=== PATIENT | female | born 1975 | race Caucasian/White ===

== ENCOUNTER → 2018-11-11 15:44 | Outpatient (CLI) | payer OTHER, SELFPAY ==
[2018-11-11 16:39] LABS: Hematocrit 35.8 % (37-47); Hemoglobin 10.8 g/dl (12.0-15.0)
--- OUTSIDE RECORDS SUMMARY | 2019-01-13 18:27 | XMS RPT_ITS ---
:1975 Author Organization [facility] Care Team Providers Name Role Phone Cliff Brush Attending Unavailable PROBLEMS PROBLEMS DATE TYPE CONDITION / CODE ATTENDING STATUS SOURCE 11/11/2018 Unknown D64.9 - Anemia, Cliff Brush Active [place] unspecified / [facility] D64.9(ICD-10) Hospital Repository PROCEDURES PROCEDURES No Procedure Records FoundRESULTS RESULTS HH, HEMOGLOBIN AND Collected: 11/11/2018 Status: F Source: [place]AL HEMATOCRIT 3:52 PM [facility] [place]POS[facility] TYPE CODE TESTS RESULT OUT OF RANGE REFERENCE UNITS LAB L100.1300 12.0-15.0 g/dl Low HGB 10.8 LAB L100.1400 37-47 % Low HCT 35.8 Performed By: #### L100.0600 #### [facility] [address] [place], [address] ALLERGIES ALLERGIES No Allergies Records FoundENCOUNTERS ENCOUNTERS ADMIT/DISCHARGE ACCOUNT ADMITTING ENCOUNTER LOCATION SOURCE NUMBER CLASS 11/11/2018 [id number] Ambulatory [address] ing:WOBLAB Repository PAYERS PAYERS ENCOUNTER GUARANTOR PAYER SUBSCRIBER SOURCE 11/11/2018 Carolina Antonella Carolina Opal [id number] [facility] icy Number: [id number] [id number] [place]ository [place] [address]Die: Date:[id number] [address], [place] () [address]EB: 11/11/2018 Secondary NOT GIVENUNK Opal Insurance:SELF PAY [facility]: Effective Repository Date:2018-11-11
== END ==
PROVIDERS: Visit Provider Obstetrics & Gynecology
DX: D64.9 Anemia, unspecified (principal)
CPT/HCPCS: 36415; 85014; 85018

== ENCOUNTER 2018-12-14 08:41 | Day surgery (SDC) | payer OTHER, SELFPAY ==
[2018-12-09 17:19] LABS: Prothrombin Time (Protime)PT. 13.1 SECONDS (11.7-14.9)
[2018-12-09 17:20] LABS: Partial Thromboplast Time 30.8 Seconds (24.1-36.2)
[2018-12-09 17:22] LABS: Hemoglobin 10.9 g/dl (12.0-15.0); Mean Corp Hgb Conc 31.1 g/gl (32-36); Mean Corpuscular Hgb 27.9 pg (27.0-32.0); Mean Corpuscular Volume 89.7 fL (81-99); Mean Platelet Vol. 9.8 fl (6.2-12.0); Platelet Count 294 K/mm3 (150-450); RBC Distribution Width CV 21.4 % (11.6-14.6); White Blood Count 7.2 K/mm3 (4.4-11.0)
[2018-12-09 17:25] LABS: Scan Indicated on CBC? Y/N YES- FLAGS NOTED
[2018-12-09 17:33] LABS: Creatinine, Serum 1.14 mg/dL (0.55-1.02); EST Glomerular Filtration Rate 55 mL/min (>60); Est Glom Filt Rate - Afr Amer 67 mL/min (>60)
[2018-12-09 17:36] LABS: Pregnancy, Serum, hCG Quali. NEGATIVE Negative (0-9 Nonpreg)
[2018-12-14] VITALS (15 sets, daily range): BP systolic 80–102; BP diastolic 45–66; PULSE 47–69; RESP 14–18; TEMP 36.2–36.7; O2SAT 93–100; BMI 22.4
--- NOTE | 2018-12-14 | IMM_PTH ---
PATIENT: REGINALD MCCARTHY LOC: [facility] [place] U#:[id number] AGE/SX: 43/F ROOM: RE12/14/[address]: Dr. Cliff Brush MD : 1975 BED: DIS: 12/15/2018 SPEC #: [id number] RECD: 12/17/18 13:44 STATUS: SALMA REQ #: [id number] KARISHMA: 12/14/18 00:[address]: Cliff Brush DEPT: IMMUNOHISTOCHEMISTRY RECD BY: Ivy Santamaria ENTERED: 12/17/18 13:45 SP TYPE: IMMUNO OTHR DR: Dr. Cliff Dixon MD Tissues: Uterus, NOS Procedures: p16 (initial) KI-67 (add) PHYSICIAN & INSTITUTION [place] [address] SPECIMEN INFORMATION: Tissue Source: Uterus Clinical Info: Blood loss anemia, submucous leiomyoma of uterus Specimen Number: [id number] #1 CPT code: 92220, 68664 METHODOLOGY: Deparaffinized sections of prefer/formalin-fixed tissue or PAP/DQ stained slides are incubated with monoclonal/polyclonal antibodies/oligonucleotide probes. Localization is made via biotin free immunoperoxidase method. Appropriate controls are performed and reacted as expected. Results on target cell population are indicated in the following table: RESULTS: ANTIBODY / CLONE RESULT P16 (E6H4) positive, block staining Ki-67 (30-9) positive These tests were developed and their performance characteristics determined by [facility]. They may not have been cleared or approved by the U.S. Food and Drug Administration. The FDA has determined that such clearance or approval is not necessary. INTERPRETATION: Uterus, hysterectomy: Consistent with moderate squamous dysplasia. ELOISE:jayden 12/18/18
--- NOTE | 2018-12-14 | HYST_PTH ---
PATIENT: REGINALD MCCARTHY LOC: [facility] [place] U#:[id number] AGE/SX: 43/F ROOM: RE12/14/[address]: Dr. Cliff Brush MD : 1975 BED: DIS: 12/15/2018 SPEC #: [id number] RECD: 12/14/18 16:31 STATUS: SALMA HURSTAshley #: [id number] KARISHMA: 12/14/18 00:[address]: Cliff Brush DEPT: SURGICAL PATHOLOGY RECD BY: Zachary Romero ENTERED: 12/15/18 12:06 SP TYPE: HYSTERECT OTHR DR: Dr. Cliff Dixon MD Tissues: Uterus, NOS Procedures: Surgery Specimen Level V HEADER OPERATION: Robotic assisted vaginal hysterectomy, bilateral salpingectomy PRE-OP DIAGNOSIS: Blood loss anemia and submucous leiomyoma of uterus TISSUE SUBMITTED: Uterus, cervix, bilateral fallopian tubes MICROSCOPIC DIAGNOSIS Uterus, cervix and bilateral fallopian tubes, vaginal hysterectomy and bilateral salpingectomy: Cervix - focal moderate squamous dysplasia (HGSIL and TERRENCE I). See comment. Chronic cystic cervicitis and squamous metaplasia. Resections margins are free of dysplastic changes. Endometrium - proliferative endometrium. Myometrium - intramural leiomyoma (6 cm in diameter). Bilateral fallopian tubes - no pathologic diagnosis. Bilateral paratubal cysts. SJ:rg 12/17/18 COMMENT Immunohistochemistry ([id number]) for surrogate HPV marker (p16) supports the above diagnosis. Case has been reviewed in consultation with Dr. Carrington who concurs with the above diagnosis. IDC:CE MICROSCOPIC DESCRIPTION Slides are reviewed. GROSS DESCRIPTION Received in fixative is one container labeled with the patient's name and designated uterus, cervix, bilateral fallopian tubes. The specimen consists of a hysterectomy specimen in multiple pieces. The largest piece of hysterectomy specimen shows one attached fallopian tube. The second detached fallopian tube is present in two pieces. A detached piece of tissue is also consistent with cervix. The uterus in multiple pieces including cervix weigh in aggregate 292 gm. The detached piece of cervix measures 5.5 x 5 x 1 cm. The endocervical canal measures 4 cm in length and the endocervical mucosa appears unremarkable. The largest piece of uterus measures 8 x 9 x 8 cm. The detached pieces of uterus in aggregate measure 9 x 8 x 3 cm. One of the smaller detached pieces shows the hemorrhagic endometrium without any mass lesion and measures 0.1 cm in thickness. The uterine wall in this piece measures up to 1.5 cm in thickness. The larger detached piece of uterus shows a nodular mass measuring 6 cm in diameter. Sections of the nodular mass reveal cruz whorled cut surfaces, focal area of cystic degeneration and without areas of hemorrhage or necrosis. The serosal surface appears cruz, glistening. No endometrial tissue is noted in the largest piece of uterus. The attached fallopian tube measures 7 cm in length and up to 0.5 cm in diameter. The fimbrial end is identified. A paratubal cyst is noted measuring 1 cm in greatest dimension. Sections reveal unremarkable cut surfaces. The detached piece of fallopian tube with fimbrial end measures 4 cm in length and 0.5 cm in diameter. A paratubal cyst is also noted measuring 1.5 cm in greatest dimension. The paratubal cyst is filled with clear fluid. The proximal detached piece of fallopian tube measures 7 cm in length and 0.3 cm in diameter. Professor Of Spanish sections are submitted in 11 cassettes as follows: 1 & 2 - cervix, 3-6 - uterine wall including endometrium, 7-9 - large nodular mass, 10 - attached fallopian tube and paratubal cyst, 11 - detached fallopian tube and paratubal cyst. / ELOISE:jayden 12/15/18 The rest of the cervix is submitted in four more cassettes, -15. / ELOISE:jayden 12/16/18 TC:1 CPT: 88802
--- NOTE | 2018-12-14 06:33 | PCM.HP.BLA ---
History and Physical Date of Admission: 12/14/18 Surgical History and Physical Date: 12/14/2018 Name: REGINALD MCCARTHY Age: 43 Date of : 1975 Reginald Mccarthy, a 43 year old female 1 0 0 0 1, presents for RAVH/BS on December 14, 2018 at 10:40. -- Severe Anemia, Recent DVT of Calf, Large Submucous Fibroid -- Vickie is here for discussion of anemia. She was on OCP and travelling over the holidays and developed a DVT and then also diagnosed with severe anemia. Was given a transfusion blood and Iron. Work-up for GI bleed appears to have been negative per her report/understanding. Single heavy menses then since stopping OCP. Will be due for menses soon. Anemia which began with diagnosis of DVT. Reginald claims it started in September while traveling and has been present a month?. It is located in the [facility]. Severity is moderate; Associated signs and symptoms are heavy menses. Additional comments are: had blood and iron transfusion.; Additional comments are: u/s shows 6.8 cm submucous fibroid; on Xarelto for recent calf DVT bridged to Lovenox; Additional comments are: stopped OCP and desires sterilization. MEDICATIONS HISTORY: Current medications prescribed by our practice are: 1. Lovenox 40 mg/0.4 mL subcutaneous syringe, As directed sq q 12 hours Patient is also takin. famotidine 20 mg tablet, 1 daily 2. iron 325 mg (65 mg iron) tablet, daily ALLERGIES: Sulfa (Sulfonamide Antibiotics), Rash, Penicillins and Rash Infections - Chicken pox Illnesses - DVT, GERD, Anemia Accidents - no injuries of consequence Hospitalizations - see surgery Review of Systems: GENERAL - Denies fever, or chills SKIN - Denies skin changes EYES - Denies visual changes EARS - Denies difficulty hearing NOSE - Denies nasal congestion or bleeding MOUTH - Denies sore throat or difficulty swallowing NECK - Denies pain or swelling RESPIRATORY - Denies shortness of breath or wheezing CARDIOVASCULAR - Denies palpitations or chest pain GASTROINTESTINAL - Denies nausea, vomiting, diarrhea, constipation GENITOURINARY - heavy periods MUSCULOSKELETAL - Denies joint or muscle pain NEUROLOGICAL - Denies localized numbness or weakness PSYCHIATRIC - Denies depression or anxiety ENDOCRINE - Denies heat or cold intolerance, weight loss or gain HEMATO-IMMUNOLOGIC - Denies excesive bleeding with cuts SOCIAL HISTORY: Alcohol Use - denies drinking Smoking - denies smoking Diet - moderate, balanced diet Lifestyle - Exercise - regular 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[employer] 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 Illicit Drug Use - denies use of street drugs Sexual Activity - Hours Worked - 40 hours per week Spouse-Sig Other Name - Jose D Spouse-Sig 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 T and A ; - 2. C/S, 2008 ; - PHYSICAL EXAM BP- 100/76 Sitting, Right arm, regular cuff Temp- 98.7 Taken Orally Weight- 141.30858 lbs Height- 65.75 inch BMI:22.98 CONSTITUTIONAL - NAD, well nourished, and well developed SKIN - No rash, lesions, or ulcers HEENT - Normocephalic, PERRLA, EOMI NECK - No nodes, no nuchal rigidity and thyroid normal size and texture LYMPH NODES - Palpation of lymph nodes in neck and groins within normal limits LUNGS - CTA x2 without wheezes, crackles or rales CARDIAC - Regular rate and rhythm without rubs, murmurs, or gallops BREAST - No dominant masses, no tenderness, no axillary adenopathy, no nipple discharge, no skin changes ABDOMEN - Without hepatosplenomegaly, distention, masses, rebound, or guarding; normal bowel sounds; no hernias EXTREMITIES - No edema or calf tenderness NEUROLOGICAL - Cranial nerves II-XII grossly intact PSYCHIATRIC - A and O to time, place, person, mood and affect ASSESSMENT/PLAN: 1. Blood Loss Anemia and Submucous Leiomyoma Of Uterus Discussed options and patient desires to proceed with definitive treatment of hysterectomy. Plan RAVH/BS as pt with prior . Will also switch from Xarelto to Lovenox as menses to begin soon and concern of heavy menses requiring emergency surgery. Discussed RBAs of [facility]/BS and all questions answered.
[2018-12-14 09:06] LABS: Internal QC Validated? YES +Cl - CLEAR BKGD; Pregnancy, Urine Negative Negative
--- NOTE | 2018-12-14 10:13 | PCM.OPRPT ---
Report of Operation Date of Procedure: 12/14/18 Pre-Operative Diagnosis: Blood Loss Anemia, Large Uterine Fibroids, Menorrhagia Post-Operative Diagnosis: Blood Loss Anemia, Large Uterine Fibroids, Menorrhagia Surgery/Procedure Performed:: Robotic Assisted Vaginal Hysterectomy and Bilateral Salpingectomy Description of Surgical Findings:: 14 cm size uterus with normal-appearing fallopian tubes and ovaries. Large uterine fibroid approximately 7 cm protruding from the body and fundus of the uterus. licensed master social worker: Allison Poole Type of Anesthesia:: General - Endotracheal Anesthesiologist: Pancho Mckeon Specimen's removed: Uterus and bilateral fallopian tubes Drains: Garg to straight drain Estimated Blood Loss (mL): Minimal Fluids Replaced: Crystalloid Description of Procedure: Surgeon: Cliff Brush MD, FACOG Indication: This is a 43 year old patient who has been having problems with blood loss anemia and menorrhagia due to fibroids. Conservative measures have not been helpful. The patient has been counseled regarding the risks, benefits and alternatives of this procedure including the possibility of bleeding, infection, and injury to surrounding structures such as bowel bladder and all questions were answered. Procedure: Pt taken to the operating room where after induction of general anesthesia the patient was prepped and draped in the usual sterile fashion and placed on a non-slip Huggy-u-vac device. Trendendelenburg test was satisfactory. Bladder was drained of urine with a Garg catheter which was left in place. Anterior cervix grasped and cervix was dilated to about 3-4 mm. Uterus sounded to 13 cms. 0-Vicryl suture was placed at the 3:00 and 9:00 position of the cervix. A medium V-care device was then placed in the uterus to allow uterine manipulation and attention was turned to the laparoscopic portion of the procedure. Ropivocaine 0.5% was injected approximately 2-3 cm superior to the umbilicus and an 8 mm robotic camera port was introduced directly with intraperitoneal placement confirmed with insufflation. 8 mm robotic side ports were introduced under direct visualization approximately 10.5 cm lateral and 2 cm inferior to the umbilical port. A 5 mm left upper quadrant port was introduced and airseal insufflation with CO2 was started. The above findings were noted. Robot was docked without difficulty and attention turned to the robotic portion of the procedure. Approximately 18 cc of Ropivicaine was used. Bilateral mesosalpinx were ligated with 35 galvez bipolar coagulation to the level of the round ligament. The posterior aspect of the cervix was identified and then opened for about 1 cm using 25 watt monopolar cautery identifying the V-care device which had been placed vaginally. Bladder flap was opened and divided to the level of the round ligaments using monopolar cautery. Progressive bites were then ligated on each side of the cervix with 35 galvez bipolar cautery to the uterine arteries. The anterior vaginal mucosa was then entered and cervix circumscribed with monopolar cautery. Uterus and attached ovaries and tubes were then removed through the vagina. It was necessary to morcellate the uterus due to the large fibroid present. Vaginal cuff was closed first with 0-Vicryl Jeyson stitches placed at each angle followed by closure of the mid-cuff with 0-Monocryl V-lock suture in two layers. Pelvis was copiously irrigated with saline and the right ureter quezada noted to peristalse. There was noted to be some oozing near the right angle and this was oversewn with [id number] 0 Vicryl suture. FloSeal was then placed across this area to help with postoperative hemostasis. Robot was undocked and trocars were removed with as much gas as possible. Incisions were closed with 4-0 Monocryl subcuticular sutures and incisions covered with steri-strips and opsite dressing. Urine in the Garg bag was noted to be clear. Perineum was examined and no cuts or tears were visualized The patient tolerated the procedure well and was taken to the recovery room in satisfactory condition. Sponge, instruments and needle counts were all correct. There were no apparent complications of the surgery. Cefotan 2 gms IV was given prior to the procedure. Specimen to Pathology: Uterus and bilateral tubes Grafts/Implants Used: None - Complications None - Admit VTE Documentation VTE Present on Admission: Yes VTE Mechan Device Prophylaxis: SCD's VTE Pharm Prophylaxis ordered?: Yes
--- NOTE | 2018-12-14 10:17 | PCM.DC.VHY ---
Discharge Diet: No Restrictions Discharge Activity: Return to Normal Activity, May Not Drive - while taking narcotic pain medications., May Shower May resume sexual activity in: 6-8 weeks Call your doctor if your incision/area has: Continuous Slow Oozing, Sudden Increased Bleeding, Increased Pain/ Swelling, Increased Redness, Foul Smelling Discharge Call your doctor if you observe: Fever of 101 or Higher, Inability to urinate, Inability to have a bowel movement, Using more than one pad per hour Allergies/Adverse Reactions: Allergies Penicillins [PCN] Allergy (Verified 12/07/18 14:57) Rash Sulfa (Sulfonamide Antibiotics) Allergy (Verified 12/07/18 14:57) Rash Medications to take at Discharge Enoxaparin [Lovenox] 40 mg SQ BID 12/07/18 Famotidine [Pepcid] 20 mg PO DAILY 12/07/18 Ferrous Sulfate, Dried [Iron] 65 mg PO BID 12/07/18 Fluticasone 0.05% [Flonase Nasal [place]] 1 spray NASAL BID 12/07/18 Docusate Sodium [Colace] 100 mg PO BID PRN PRN #60 cap 12/14/18 Oxycodone [Oxyir] 5 mg PO Q6H PRN PRN 7 Days #20 tab 12/14/18 The following prescriptions were given: Oxycodone [Oxyir] 5 mg PO Q6H PRN PRN 7 Days #20 tab PRN Reason: Severe Pain (6-10/10) Docusate Sodium [Colace] 100 mg PO BID PRN PRN #60 cap PRN Reason: Constipation Orders to be completed after discharge: ,Urine Time Frame: 12/14/18, Location: Laboratory Primary Care Physician: Cliff Dixon [Primary Care Provider] - Test Results: Test results from this visit will be discussed in further detail at your follow-up appointment, if applicable. Please Follow Up With: Cliff Brush MD When: 2-3 weeks
[2018-12-14] MEDS: Ropivacaine 0.5% 30 ML Vial (11:45)
[2018-12-14] MEDS: Ketorolac 30 MG/ML Syringe IV ×2 (16:46→21:33)
[2018-12-14] MEDS: Dextrose 5%-Lactated Ringers 1,000 ML 150 ML IV ×2 (17:29→23:34)
[2018-12-14] MEDS: 0.9% NaCl Peripheral Flush Adult/Peds IV (21:33)
[2018-12-14] MEDS: Fluticasone 0.05% 1 SPRAY NASAL.SRY NASAL (21:33)
[2018-12-14] MEDS: Famotidine 20 MG Tablet PO (21:34)
[2018-12-14] MEDS: Enoxaparin 30 MG/0.3 ML Syringe SC (21:48)
[2018-12-15 03:46] VITALS: BP 92/49; PULSE 60; RESP 20; TEMP 36.9; O2SAT 97
[2018-12-15] MEDS: 0.9% NaCl Peripheral Flush Adult/Peds IV ×2 (03:53→09:34)
[2018-12-15] MEDS: Ketorolac 30 MG/ML Syringe IV ×2 (03:53→09:30)
[2018-12-15 06:25] LABS: Hematocrit 29.8 % (37-47); Hemoglobin 9.1 g/dl (12.0-15.0); Mean Corp Hgb Conc 30.5 g/gl (32-36); Mean Corpuscular Hgb 28.8 pg (27.0-32.0); Mean Corpuscular Volume 94.3 fL (81-99); Mean Platelet Vol. 10.1 fl (6.2-12.0); Platelet Count 281 K/mm3 (150-450); RBC Distribution Width CV 21.3 % (11.6-14.6); RBC Distribution Width SD 70.2 fl (35.1-43.9); Red Blood Count 3.16 M/mm3 (4.2-5.4); White Blood Count 10.4 K/mm3 (4.4-11.0)
[2018-12-15 06:35] LABS: Scan Indicated on CBC? Y/N YES- FLAGS NOTED
[2018-12-15 06:47] LABS: Creatinine, Serum 0.98 mg/dL (0.55-1.02); EST Glomerular Filtration Rate 66 mL/min (>60); Est Glom Filt Rate - Afr Amer 80 mL/min (>60); Estimated Creatinine Clearance 72.72 ml/min
[2018-12-15 06:53] LABS: Differential Comment SCAN
--- NOTE | 2018-12-15 08:43 | PN.OBGYN_ITS ---
Subjective: Patient without complaints. Tolerating diet well. Denies flatus. Voiding on her own. Minimal vaginal bleeding. - Physical Exam Vital Signs Temp Pulse Resp BP Pulse Ox 98.4 F 60 20 H 92/49 L 97 12/15/18 03:46 12/15/18 03:46 12/15/18 03:46 12/15/18 03:46 12/15/18 03:46 Oxygen Delivery Method Room Air Weight: 143 lb 1.28 oz Body Mass Index (BMI) 22.4 Intake and Output for Last 24 Hours 12/13/18 12/14/18 12/15/18 23:59 23:59 23:59 Intake Total 4984 / 4984 1626 / 1626 Output Total 900 / 900 500 / 500 Balance 4084 / 4084 1126 / 1126 Laboratory Tests Past 24 Hrs 12/14/18 12/14/18 12/15/18 08:05 08:56 05:46 WBC 10.4 RBC 3.16 L Hgb 9.1 L Hct 29.8 L MCV 94.3 MCH 28.8 MCHC 30.5 L RDW 21.3 H RDW Differential 70.2 H Plt Count 281 MPV 10.1 Differential Comment SCAN Creatinine Estim Creat Clear Calc Est GFR (MDRD) Af Amer Est GFR (MDRD) Non-Af Urine Test Negative Blood Type O POSITIVE Antibody Screen NEGATIVE 12/15/18 05:46 WBC RBC Hgb Hct MCV MCH MCHC RDW RDW Differential Plt Count MPV Differential Comment Creatinine 0.98 Estim Creat Clear Calc 72.72 Est GFR (MDRD) Af Amer 80 Est GFR (MDRD) Non-Af 66 Urine Test Blood Type Antibody Screen Wounds are clean, dry, intact. Good urine output. Creatinine and hemoglobin okay. Medical Necessity - Tobacco Use Smoking Status: Never smoker Assessment/Plan Doing well postoperative day #1 status post robotic assisted vaginal hys terectomy and bilateral salpingectomy. Will release to home with routine instructions.
[2018-12-15] MEDS: Fluticasone 0.05% 1 SPRAY NASAL.SRY NASAL (09:30)
[2018-12-15] MEDS: Famotidine 20 MG Tablet PO (09:30)
[2018-12-15] MEDS: Enoxaparin 30 MG/0.3 ML Syringe SC (09:31)
[2018-12-15 09:36] VITALS: BP 95/51; PULSE 72; RESP 16; TEMP 36.9; O2SAT 99
[2018-12-15 11:48] VITALS: O2SAT 96
== END 2018-12-15 12:23 | disposition home or self-care (01) ==
LOC: SDC 08:42 → AC 08:43 → MS2 10:44
PROVIDERS: Family Provider Family Medicine; PCP Family Medicine; Referring Provider Obstetrics & Gynecology; Visit Provider Obstetrics & Gynecology
PROC: 0UT90ZZ Resection of Uterus, Open Approach (ICD-10-PCS; CPT 58554; principal; 2018-12-14 10:20)
DX: R87.613 High grade squamous intraepithelial lesion on cytologic smear of cervix (HGSIL) (principal); N72 Inflammatory disease of cervix uteri; D25.1 Intramural leiomyoma of uterus; N83.8 Other noninflammatory disorders of ovary, fallopian tube and broad ligament; D50.0 Iron deficiency anemia secondary to blood loss (chronic); K21.9 Gastro-esophageal reflux disease without esophagitis; Z86.718 Personal history of other venous thrombosis and embolism; Z79.02 Long term (current) use of antithrombotics/antiplatelets; Z79.899 Other long term (current) drug therapy
CPT/HCPCS: 58554; 36415; 81025; 82565; 84703; 85027; 85610; 85730; 86850; 86900; 88307; 88341; 88342; J7120; A4216; J2405

== ENCOUNTER → 2018-12-17 15:14 | Outpatient (CLI) | payer OTHER, SELFPAY ==
[2018-12-14 17:13] VITALS: BMI 22.4
[2018-12-17 15:52] LABS: Absolute Neutrophil Count 5.3 X10^3/uL (2.0-7.7); Basophil# 0.04 X10^3/uL; Basophil% 0.5 % (0-1); Differential Indicated SCAN CRITERIA MET; Eosinophil# 0.26 X10^3/uL; Eosinophils% 3.5 % (0-5); Hematocrit 31.9 % (37-47); Hemoglobin 9.7 g/dl (12.0-15.0); Lymphocyte % 18.8 % (19-41); Mean Corp Hgb Conc 30.4 g/gl (32-36); Mean Corpuscular Hgb 28.7 pg (27.0-32.0); Mean Corpuscular Volume 94.4 fL (81-99); Monocyte# 0.49 X10^3/uL; Monocyte% 6.6 % (0-10); Neutrophil # 5.25 X10^3/uL (2.7-7.7); Neutrophil % 70.5 % (47-70); POSITIVE COUNT NO; POSITIVE DIFFERENTIAL NO; POSITIVE MORPHOLOGY YES; Platelet Count 300 K/mm3 (150-450); RBC Distribution Width CV 20.8 % (11.6-14.6); RBC Distribution Width SD 69.6 fl (35.1-43.9); Red Blood Count 3.38 M/mm3 (4.2-5.4); White Blood Count 7.5 K/mm3 (4.4-11.0)
[2018-12-17 16:20] LABS: Anisocytosis 1+; Crenated RBC RARE; Differential Comment SCANNED; Ovalocyte 1+
[2018-12-17 16:36] LABS: Creatinine, Serum 0.78 mg/dL (0.55-1.02); EST Glomerular Filtration Rate 86 mL/min (>60); Est Glom Filt Rate - Afr Amer 104 mL/min (>60)
== END ==
PROVIDERS: Visit Provider Obstetrics & Gynecology
DX: Z98.890 Other specified postprocedural states (principal)
CPT/HCPCS: 36415; 82565; 85025

== ENCOUNTER → 2023-01-14 | Outpatient (CLI) | payer OTHER, SELFPAY ==
[2023-01-14 14:41] LABS: LDH 159 U/L (84-246)
[2023-01-16 09:30] LABS: AFP, Tumor Marker 1.9 ng/mL (0.0-6.4); Cancer Antigen 125 14.4 U/mL (0.0-38.1); Carcinoembryonic Antigen 0.9 ng/mL (0.0-4.7)
== END | disposition home or self-care (01) ==
PROVIDERS: Visit Provider Student in an Organized Health Care Education/Training Program
DX: N83.202 Unspecified ovarian cyst, left side (principal)
CPT/HCPCS: 36415; 82105; 82378; 83615; 86304

== ENCOUNTER 2023-02-13 09:58 | Day surgery (SDC) | payer OTHER, SELFPAY ==
[2023-02-07 16:21] LABS: Hematocrit 38.2 % (37-47); Hemoglobin 12.4 g/dL (12.0-15.0); Mean Corp Hgb Conc 32.5 g/dL (32-36); Mean Corpuscular Hgb 31.5 pg (27.0-32.0); Mean Platelet Vol. 10.3 fl (6.2-12.0); Platelet Count 229 K/mm3 (150-450); RBC Distribution Width CV 12.6 % (11.6-14.6); Red Blood Count 3.94 M/mm3 (4.2-5.4); White Blood Count 6.9 K/mm3 (4.4-11.0)
[2023-02-13] VITALS (7 sets, daily range): BP systolic 105–127; BP diastolic 56–83; PULSE 57–73; RESP 16–18; TEMP 36.1–36.7; O2SAT 92–100; BMI 22.9
--- NOTE | 2023-02-13 07:16 | PCM.HP.BLA ---
History and Physical Date of Admission: 02/13/23 HPI: 47-year-old female with large left ovarian cyst and small right ovarian cyst planned for laparoscopic left oophorectomy, possible right ovarian cystectomy, possible right oophorectomy. Denies headache or vision changes, chest pain or shortness of breath, nausea or vomiting, fevers or chills, diarrhea or constipation. 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 Depression 2. Arthritis 3. History of VTE in the right leg in 2018 after a long trip and being on an oral contraceptive pill Surgical history: 1. Robotic assisted total laparoscopic hysterectomy, bilateral salpingectomy 2. section 3. Tonsillectomy and adenoidectomy Medications: 1. Aspirin 81 mg qD 2. Pepcid 20 mg qD Allergies: Sulfa, PCN Family history: Denies history of blood clots or bleeding disorders Social history: Denies tobacco, alcohol, drug use Review of system: Negative otherwise stated above Physical exam: Vitals pending General: No acute distress HEENT: Normocephalic/atraumatic, PERRLA Cardiac: Regular rate and rhythm Respiratory clear to auscultation bilaterally Abdomen: Soft, nontender, nondistended Extremities: No edema Neurologic: Cranial nerves II through XII grossly intact, no focal deficits Musculoskeletal: Strength out of 5 throughout extremities. Assessment/plan: 47-year-old female with large left ovarian cyst and small right ovarian cyst planned for laparoscopic left oophorectomy, possible right ovarian cystectomy, possible right oophorectomy. Patient does desire right oophorectomy. She is aware of the risks and benefits. Aware that she will be placed into surgical menopause and is not a candidate for hormone replacement therapy due to her history of venous thromboembolism. Aware of risk of increased Eliquis mortality. She is electing today for oophorectomy. All risk, benefits, alternatives discussed with patient.? Risk include but are not limited to: Risk of bleeding plan transfusion, infection, injury to surrounding tissue including bowel/bladder/major abdominal vessels, VTE, ICU admission.? Patient aware and consented. Due to history of VTE, will discharge home on prophylactic Lovenox.
[2023-02-13] MEDS: Lactated Ringers 1,000 ML 15 ML IV (10:40)
--- NOTE | 2023-02-13 12:00 | OV_PTH ---
PATIENT: REGINALD MCCARTHY LOC: [facility] [place][id number] AGE/SX: 47/F ROOM: RE02/13/[address]: Dr. Lina Dior DO : 1975 BED: DIS: 02/13/2023 SPEC #: [id number] RECD: 02/13/23 15:26 STATUS: SALMA REAshley #: [id number] KARISHMA: 02/13/23 12:[address]: Lina Dior DEPT: SURGICAL PATHOLOGY RECD BY: Carlie Moraes ENTERED: 02/14/23 08:55 SP TYPE: OVARY OTHR DR: No Primary Care Phys Tissues: Ovary, NOS Procedures: Surgery Specimen Level IV Surgery Specimen Level V HEADER OPERATION: Laparoscopic right and left oophorectomy PRE-OP DIAGNOSIS: Large left ovarian cyst, small right ovarian cyst TISSUE SUBMITTED: Right and left ovaries MICROSCOPIC DIAGNOSIS Right and left ovaries, bilateral oophorectomy: Right ovary ? physiologic follicular cyst and corpora albicans. Left ovary ? serous cystadenoma (4.5 cm in greatest dimension). - Hemorrhagic cyst and corpora albicans. ELOISE:jayden 02/17/2023 MICROSCOPIC DESCRIPTION Slides are reviewed. GROSS DESCRIPTION Received in fixative is one container labeled with the patient's name and designated right and left ovaries. The specimen consists of bilateral ovaries as per requisition. The smaller ovary designated as soft to cystic right ovary measures 3.0 x 2.5 x 2.0 cm. The surface is smooth without any papillations and inked black and it weighs 6 gm. Sections reveal a few small cysts filled with clear to mucoid fluid, largest measuring 0.4 cm in greatest dimension. The corpus luteum is also noted measuring 1.4 cm in greatest dimension. The larger soft to cystic collapsed left ovary measures 5.0 x 4.5 x 1.5 cm and weighs 12.5 cm. The external surface is smooth without any papillation and is inked black. Sections reveal a collapsed, smooth walled cyst occupying almost the entire ovary measuring 4.5 cm in greatest dimension. The cyst appears to be multiloculated. The cyst wall measures 0.1 to 0.2 cm in thickness. A focal area of hemorrhage is also noted in the cyst wall. Epic Prelude Analyst sections are submitted in six cassettes as follows: 1-3 ? smaller ovary identified as right ovary, 4-6 ? larger ovary identified as left ovary. / ELOISE:jayden 02/14/2023 TC:1 CPT: 25721, 06606
--- NOTE | 2023-02-13 13:08 | OP.PCM_ITS ---
Report of Operation Date of Procedure: 02/13/23 Pre-Operative Diagnosis: Left ovarian cyst, right ovarian cyst Post-Operative Diagnosis: Large left ovarian cyst, no ovarian cyst cyst on right Surgery/Procedure Performed:: Laparoscopic bilateral oophorectomy, lysis of adhesions Description of Surgical Findings:: Normal-appearing external genitalia. Normal-appearing right ovary. Enlarged left ovary with peritoneal adhesions posteriorly to posterior cul-de-sac. Left colonic adhesions to left pelvic sidewall. Surgeon: Lina Dior snow removal supervisor: Wilner Clark Type of Anesthesia: General Specimen's removed: Bilateral ovaries Estimated Blood Loss (mL): 10 cc Fluids Replaced: 1100cc Description of Procedure: Indication/risk/benefits: Procedure: UOP: 30 cc clear yellow urine
--- NOTE | 2023-02-13 13:08 | PCM.OPRPT ---
Report of Operation Date of Procedure: 02/13/23 Pre-Operative Diagnosis: Left ovarian cyst, right ovarian cyst Post-Operative Diagnosis: Large left ovarian cyst, no ovarian cyst cyst on right Surgery/Procedure Performed:: Laparoscopic bilateral oophorectomy, lysis of adhesions Description of Surgical Findings:: Normal-appearing external genitalia. Normal-appearing right ovary. Enlarged left ovary with peritoneal adhesions posteriorly to posterior cul-de-sac. Left posterior cul-de-sac adhesions were filled with straw-colored fluid. Left colonic adhesions to left pelvic sidewall. Surgeon: Lina Dior horse exerciser: Wilner Clark Type of Anesthesia: General Specimen's removed: Bilateral ovaries Estimated Blood Loss (mL): 10 cc Fluids Replaced: 1100cc Description of Procedure: Indication/risk/benefits: 47-year-old female with large left ovarian cyst and small right ovarian cyst planned for laparoscopic left oophorectomy, possible right ovarian cystectomy, possible right oophorectomy.? Patient does desire right oophorectomy.? She is aware of the risks and benefits.? Aware that she will be placed into surgical menopause and is not a candidate for hormone replacement therapy due to her history of venous thromboembolism.? Aware of risk of increased Eliquis mortality.? She is electing today for bilateral oophorectomy.? All risk, benefits, alternatives discussed with patient.? Risk include but are not limited to: Risk of bleeding plan transfusion, infection, injury to surrounding tissue including bowel/bladder/major abdominal vessels, VTE, ICU admission.? Patient aware and consented. Procedure: Patient taken to the operating room and placed under general anesthesia. Patient placed in the dorsal lithotomy position and prepped and draped in usual sterile fashion. Sponge stick placed in the vagina and Garg catheter placed. Gloves were changed and attention turned to the anterior abdominal wall. Infraumbilical incision made with scalpel and trocar placed under direct visualization. Abdomen insufflated. Right and left lower quadrant incisions made with scalpel and trocars placed under direct visualization. Findings noted above. Right ovary was identified and grasped, right IP ligament coagulated and cut using LigaSure device. Right ovary placed in the cul-de-sac. Left posterior peritoneal adhesions to the left ovary were lysed using sharp and blunt dissection. Left ovary was grasped and IP ligament was coagulated and cut using the LigaSure device. Dissection was carried. Some adhesions were noted of the left ovary to left pelvic sidewall. Concern for proximity of ureter was noted, urology was called and he intraoperatively assessed the pelvis, stated that the ureter was far from the dissection bed and the noted adhesion was not the ureter. The remainder of the left ovary was removed using LigaSure device, dissection was far from the left pelvic sidewall. Ovarian cyst was incidentally opened during dissection, thin brown fluid was extruded. Very small portion of ovary remains attached to the left pelvic sidewall near uterosacral ligament due to proximity of surrounding structures. Pelvis was copiously irrigated. Hemostasis confirmed. Infraumbilical trocar was replaced with a larger 10 mm trocar. Bilateral ovaries were placed into Endo Catch bag and removed through the infraumbilical trocar site. Abdomen desufflated. Fascia was closed at the infraumbilical incision with suture. Skin closed with subcuticular stitch and skin glue. Sponge stick and Garg catheter removed. At the end of the procedure all needle, lap, sponge counts were correct. UOP: 30 cc clear yellow urine Complications None Admit VTE Documentation VTE Mechan Device Prophylaxis: SCD's
--- NOTE | 2023-02-13 13:19 | DCINST_ITS ---
Discharge Instructions Diet Discharge Diet: No restrictions Activity Discharge Activity: Return to Normal Activity and May Shower May resume sexual activity in: 2 weeks Weight Bearing Status: Weight bearing as tolerated Lifting Restrictions: No greater than 15 pounds Dressing / Incision Call your doctor if your incision/area has: Continuous Slow Oozing, Increased Pain/ Swelling, Increased Redness and Foul Smelling Discharge Call your doctor if you observe: Fever of 101 or Higher, Inability to urinate, Using more than 1 pad per hour, Shortness of breath, Chest pain, Calf discomfort and Uncontrolled pain Cleanse incision/area with: Soap & Water and Keep Dressing Clean & Dry Follow Up Care Please Follow Up With: Lina Dior DO When: 2 weeks post operative visit. Test Results: Test results from this visit will be discussed in further detail at your follow- up appointment, if applicable. Discharge Plan Admission Primary Reason for Your Visit: Oophorectomy Attending Provider: Lina Dior Primary Care Provider: Care Physician,Riya Primary Discharge Orders/Prescriptions Prescriptions: New enoxaparin [Lovenox] 40 mg/0.4 mL syringe 40 mg subcut DAILY 10 Days Qty: 4 0RF Continued famotidine 20 MG tablet 20 mg PO DAILY fluticasone propionate 1 SPRAY spray,suspension 1 spray NASAL BID docusate sodium 100 MG capsule 100 mg PO BID PRN PRN (Reason: Constipation) Qty: 60 1RF aspirin 81 mg Tablet 81 mg PO DAILY Referrals / Follow Up: Care Physician,No Primary [Primary Care Provider] - Disposition Disposition (needs filled in before D/C Order can be placed): Home, Self Care
[2023-02-13] MEDS: Scopolamine 1mg/72hr Patch 1 PATCH TD (18:26)
== END 2023-02-13 18:27 | disposition home or self-care (01) ==
LOC: SDC 09:59 → AC 10:01
PROVIDERS: Referring Provider Student in an Organized Health Care Education/Training Program; Visit Provider Student in an Organized Health Care Education/Training Program
PROC: (CPT 58661; principal; 2023-02-13 11:45)
DX: D27.1 Benign neoplasm of left ovary (principal); N83.01 Follicular cyst of right ovary; K21.9 Gastro-esophageal reflux disease without esophagitis; F32.A Depression, unspecified; Z79.82 Long term (current) use of aspirin; Z79.899 Other long term (current) drug therapy; Z86.718 Personal history of other venous thrombosis and embolism
CPT/HCPCS: 58661; 36415; 85027; 86850; 86900; 86901; 88305; 88307; J7120; J2405

== ENCOUNTER → 2023-08-06 | Outpatient (CLI) | payer OTHER, SELFPAY ==
--- NOTE | 2023-08-06 13:53 | NEURO_ITS ---
NCS and/or EMG Patient Report Ordering Doctor: Monica Osborn DATE OF SERVICE: 08/06/23 Carolina presents for electrodiagnostic testing of the right lower limb. She reports intermittent numbness and tingling around the right foot. Electrodiagnostic findings: Right peroneal motor nerve demonstrates normal dist al latency, amplitude and conduction velocity. No evidence of significant drop in conduction across the fibular head. Right tibial motor nerve demonstrates normal distal latency, amplitude and conduction velocity. Normal right tibial and peroneal F?waves. Normal right sural and right superficial peroneal response. H reflex is normal bilaterally. Needle EMG testing was performed in the right lower limb. All muscles tested showed no evidence of denervation with normal motor unit action potentials. Electrodiagnostic impression: This is a normal electrodiagnostic study of the right lower limb there is no electrodiagnostic evidence for peripheral neuropathy or lumbosacral radiculopathy. Multi Select Codes Neurology Neurology Interp Codes: 73274-81 Musc test done w/n test comp (interp) and 37774-07 Nrv cndj tst 5-6 studies (interp)
== END | disposition home or self-care (01) ==
PROVIDERS: PCP Physician Assistant; Referring Provider Physician Assistant; Visit Provider Physician Assistant
DX: R20.0 Anesthesia of skin (principal); R20.2 Paresthesia of skin; M21.371 Foot drop, right foot
CPT/HCPCS: 95886; 95909

== ENCOUNTER → 2024-08-06 | Outpatient (CLI) | payer OTHER, SELFPAY ==
--- NOTE | 2024-08-06 09:30 | FLU_PTH ---
PATIENT: REGINALD MCCARTHY LOC: [facility] U#:[id number] AGE/SX: 49/F ROOM: RE08/06/[address]: Dr. Roddy Clark MD : [id number] BED: DIS: 08/06/2024 SPEC #: [id number] RECD: 08/06/24 11:13 STATUS: SALMA BHAKTI #: [id number] KARISHMA: 08/06/24 09:[address]: Roddy Clark DEPT: CYTOLOGY RECD BY: Carlie Moraes ENTERED: 08/06/24 12:06 SP TYPE: Fluid OTHR DR: LARA Cannon Tissues: A - Thyroid gland, NOS B - Thyroid gland, NOS Procedures: Special Stain Group II Surgery Specimen Level IV Cytospin Fluid Cytology Other HEADER OPERATION: Fine needle aspiraiton of thyroid nodule PRE-OP DIAGNOSIS: Thyroid nodule TISSUE SUBMITTED: A- Thyroid nodule fluid for cytology, B- Thyroid nodule slides DIAGNOSIS CYTOLOGY A. Thyroid nodule fluid for cytology (cytospin and cellblock): Consistent with benign follicular/colloid nodule with cystic changes, [place] Category II. Adequate for evaluation. See comment. B. Thyroid nodule, fine needle aspiration (smears): Consistent with benign follicular/colloid nodule with cystic changes, [place] Category II. Adequate for evaluation. See comment. mr 08/09/2024 COMMENT The [place] System for thyroid diagnostic categorization was used in the evaluation of this case. Correlation with clinical, radiologic findings and appropriate follow up are necessary. CYTOLOGY STUDY Slides are reviewed. CYTOLOGY GROSS A. Received is 30 ml of red-cloudy fluid labeled with the patient's name and and designated per the requisition as Thyroid nodule fluid. Submitted for cytology preparation including cell block. B. Received are 4 smears labeled with the patient's name and designated per the requisition as Thyroid nodule. Submitted for staining. Mr 08/06/2024 TC:5 CPT: 88188b9,92509
== END | disposition home or self-care (01) ==
LOC: LABSPEC 11:52
PROVIDERS: PCP Physician Assistant; Referring Provider Surgery; Visit Provider Surgery
DX: E04.1 Nontoxic single thyroid nodule (principal)
CPT/HCPCS: 88108; 88161; 88305; 88313

== ENCOUNTER → 2025-09-09 | Outpatient (CLI) | payer OTHER, SELFPAY ==
--- NOTE | 2025-09-09 13:27 | US_ITS ---
PROCEDURE: THYROID 09/09/2025 REASON FOR EXAM: THYROID NODULE TECHNIQUE: Procedure Code: USTHY Modality: US Procedure: THYROID COMPARISON: None available for review. FINDINGS: Transcutaneous 2-D grayscale and color Doppler ultrasound of the thyroid gland was performed. MEASUREMENTS: Right lobe: 4.4 x 2.1 x 2 cm. Left lobe: 5.2 x 2.1 x 1.7 cm. Isthmus: 3 mm. RIGHT SIDE: Heterogeneous echotexture. Simple, benign cysts visualized. The interpolar right thyroid contains a mixed cystic and solid, hypoechoic, wider than tall, smooth nodule measuring 0.8 x 0.7 x 0.5 cm without evidence of echogenic foci. (TR 3) The interpolar right thyroid contains a mixed cystic and solid, hypoechoic, wider than tall, smooth nodule measuring 0.5 x 0.5 x 0.5 cm without evidence of echogenic foci. (TR 3) LEFT SIDE: Heterogeneous echotexture. Simple, benign cysts visualized. The interpolar left thyroid contains a mixed cystic and solid, hypoechoic, wider than tall, smooth nodule measuring 1.9 x 1.8 x 1.3 cm without evidence of echogenic foci. (TR 3) The interpolar left thyroid contains a mixed cystic and solid, isoechoic, wider than tall, smooth nodule measuring 0.6 x 0.6 x 0.6 cm without evidence of echogenic foci. (TR 2) ISTHMUS: The isthmus contains a mixed cystic and solid, hypoechoic, wider than tall, smooth nodule measuring 1.8 x 1.7 x 1.2 cm without evidence of echogenic foci. (TR 3) Normal vascularity without microcalcification. No enlarged lymph nodes within the visualized neck. US/Thyroid IMPRESSION: 1. Diffusely heterogenous thyroid which can be seen with autoimmune disorders. 2. Multinodular thyroid TI-RADS 3, MILDLY SUSPICIOUS. RECOMMENDATIONS: Recommend repeat ultrasound in two years as these nodules do not currently meet size criteria for image guided fine needle aspiration. ACR TI-RADS Guidelines TI RADS 1 - Benign; No FNA TI RADS 2- Not Suspicious; No FNA TI RADS 3- Mildly Suspicious; FNA if >2.5cm or Follow if >1.5cm at 1, 3 and 5 y ears. TI RADS 4- Moderately Suspicious; FNA if >1.5cm or Follow if >1cm at 1, 2, 3 an d 5 years. TI RADS 5- Highly Suspicious; FNA if >1cm or Follow if >0.5cm yearly for up to 5 years. Reference: Daren FN, Zen WD, Mahendra EG et al. ACR Thyroid Imaging, Repor ting and Data System (TI-RADS): White Paper of the ACR TI-RADS Committee. J Am Reading Location: [id number]
--- NOTE | 2025-09-09 14:06 | BI_ITS ---
EXAM: SCRN MAMM (CAD)W/VIK BILAT DATE: 09/09/2025 CLINICAL HISTORY: F, Age 50 y/o , SCREENING TECHNIQUE: Procedure Code: [id number] Modality: MG Procedure: SCRN MAMM (CAD)W/VIK BILAT COMPARISON: Prior exam(s) dated 06/03/2024 and 10/08/2021. FINDINGS: TISSUE DENSITY: The breasts are extremely dense, which lowers the sensitivity of mammography. Bilateral Breast Mammographic Findings: No significant masses, calcifications or other abnormalities are identified. Benign-appearing round microcalcifications are seen in both breasts. BI/SCRN MAMM (CAD)W/VIK BILAT IMPRESSION: Benign screening mammogram OVERALL FINAL ASSESSMENT BI-RADS 2: BENIGN RECOMMENDATION: Routine annual follow-up in 1 Year Additional Recommendation none A letter with findings and recommendations will be mailed to the patient. Reading Location: [id number]
== END | disposition home or self-care (01) ==
LOC: OPUS 13:26
PROVIDERS: PCP Physician Assistant; Referring Provider Surgery; Visit Provider Surgery
DX: Z12.31 Encounter for screening mammogram for malignant neoplasm of breast (principal)
CPT/HCPCS: 76536; 77063; 77067

== ENCOUNTER → 2025-09-28 | Outpatient (CLI) | payer OTHER, SELFPAY ==
[2025-09-28 15:46] LABS: Free T3 2.9 pg/mL (2.18-3.98)
== END | disposition home or self-care (01) ==
PROVIDERS: PCP Physician Assistant; Referring Provider Surgery; Visit Provider Surgery
DX: E04.1 Nontoxic single thyroid nodule (principal)
CPT/HCPCS: 36415; 84439; 84443; 84481

== ENCOUNTER 2025-10-18 06:59 | Day surgery (SDC) | payer OTHER, SELFPAY ==
[2025-10-18] VITALS (8 sets, daily range): BP systolic 92–118; BP diastolic 56–72; PULSE 56–72; RESP 16–18; TEMP 36.1–36.6; O2SAT 96–99; BMI 23.1
[2025-10-18] MEDS: Lactated Ringers 1,000 ML 15 ML IV (07:15)
--- OUTSIDE RECORDS SUMMARY | 2025-10-18 07:21 | XMS RPT_ITS | CCD ---
Author Organization [facility] Care Team Providers Care Flooring Machine Feeder Name Role Phone LARA Ruby Primary Care Provider LARA Ruby Referring Provider LARA Ruby Other Provider Dr. Cody Macias Attending Provider Monica Osborn PA-C Unavailable Anurag MCBRIDE, Monica Hart Unavailable [phone] [facility], . Unavailable Gonsalo LALA, Dr. Cliff Goldstein Unavailable Dr. Shonda Landry MD Unavailable Drilling Field Operator/Gynecology Prov. Unavailable Un available Joanna LALA, Dr. Arango Unavailable [facility], [facility] Unavailable Kacy Kinsey MD Unavailable Raudel ARMENDARIZ, Elva Unavailable Zane MCBRIDE, Kat Hart Unavailable Sanjeev ARMENDARIZ, Josie Unavailable Unavailable Jamari LALA, Tone Cortes Unavailable Jacinta Price LPN Unavailable Unavailable Jaskaran LALA, Andrew Guerra Unavailable Sol Ramirez PA-C Unavailable [phone] Bonnie Felipe Unavailable Unavailable Matteo GERMAIN, Delia Vyas Unavailable Unavail able Lucy Plaza MA Unavailable Unavailable Mala Nichole LPN Unavailable Unavailable Quang GERMAIN, Sol Guerra Unavailable Unavaila ble Marthey EXPELLER WORKER, Cynthia Unavailable Unavailable Alex EXPELLER WORKER, Johntahan Unavailable Unavailable Ovi GERMAIN, Monica Unavailable [phone] Romero EXPELLER WORKER, Galina Unavailable Unavailable Mutersbaugh EXPELLER WORKER, Rosa K Unavailable Unavai devyn William (Scribe), Tejas Unavailable Unavailab le Delma EXPELLER WORKER, Kacy M Unavailable Unavailab le [place] EXPELLER WORKER, Jaimie Cooper Unavailable Unavailab isaura Dixon MD, Cliff Guerra Unavailable [phone] Wekrystal EXPELLER WORKER, Cora Unavailable Unavailabl e Enzo EXPELLER WORKER, Suzie N Unavailable Unavaila ble Unavailable Unavailable Cora John RN Unavailable Unavailable [facility] Unavailable [facility] Unavailable Cora John Unavailable Unavailable Natalie EXPELLER WORKER, Jil Unavailable Unavailabl e SELF Referring Unavailable TRIXIE MORALES Attending Unavailable Kae Palafox Unavailable Unavailable Tia Burciaga Unavailable Unavailabl e KRISTIN BRIGGS MD Primary Care Unavailable KRISTIN BRIGGS MD Attending Unavailable OSBORN, MONICA J Consulting Unavailable KRISTIN BRIGGS MD Admitting Unavailable PROVIDER, UNKNOWN Consulting Unavailable OSBORN, MONICA J Primary Care Unavailable OSBORN, MONICA J Consulting Unavailable OSBORN, MONICA J Attending Unavailable OSBORN, MONICA J Admitting Unavailable PROVIDER, UNKNOWN Consulting Unavailable OSBORN, MONICA J Primary Care Unavailable OSBORN, MONICA J Consulting Unavailable OSBORN, MONICA J Attending Unavailable OSBORN, MONICA J Admitting Unavailable PROVIDER, UNKNOWN Consulting Unavailable KRISTIN BRIGGS MD Primary Care Unavailable KRISTIN BRIGGS MD Attending Unavailable OSBORN, MONICA J Consulting Unavailable KRISTIN BRIGGS MD Admitting Unavailable PROVIDER, UNKNOWN Consulting Unavailable Osborn PA, Monica Primary Care Unavailable Mauricio Bailon Attending Unavailable Allergies Allergy Classification Reported Allergen(s) Allergy Type Date of Onset Reaction(s) Facility (3 sources) Penicillins; Translations: [PENICILLINS] Allergy to substance [address] [facility] (3 sources) Sulfonamides (Antibiotic); Translations: [SULFA (SULFONAMIDE ANTIBIOTICS)] Allergy to substance [address] [facility] (20 sources) Penicillin V Drug Allergy [facility], [place] (20 sources) [facility]ibiotic[facility] ([facility]) Penicillins Drug allergy (disorder) [facility] (1 source) Sulfonamides (Antibiotic) Drug allergy (disorder) [facility] (1 source) Penicillins Drug allergy (disorder) 4 [facility] (1 source) Sulfonamides (Antibiotic) Drug allergy (disorder) 4 [facility] Medications Current Medications Medication Drug Class(es) Dates Sig (Normalized) Sig (Original) aspirin 81 mg oral tablet (20 sources) Platelet Aggregation Inhibitor, Nonsteroidal Anti-inflammatory Drug Start: 02-06-2023 take 81 mg by mouth once daily Aspirin Active 81 MG PO DAILY February 06, 2023 12:00am docusate sodium 100 mg oral capsule (2 sources) Start: 12-14-2018 take 100 mg by mouth twice daily as needed Docusate Sodium Active 100 MG PO TWICE DAILY NEEDED 60 December 14, 2018 1:00am 0.4 ml enoxaparin sodium 100 mg/ml prefilled syringe (20 sources) Low Molecular Weight Heparin Start: 02-13-2023 Enoxaparin (Lovenox) 40 mg/0.4 mL syringe Active 40 MG SC DAILY 4 February 13, 2023 12:00am Enoxaparin Sodiu m 40 MG/0.4ML Subcutaneous Solution ; 1 injection every twelve hours (40 MG/0.4ML) Status: Inactive fluticasone propionate 0.05 mg/actuat metered dose nasal spray (20 sources) Corticosteroid Start: 12-07-2018 Fluticasone Pr opionate Active 1 SPRAY NASAL TWICE A DAY December 07, 2018 1:00am Start: 08-25-2018 End: 09-24-2018 take 2 spray(s) nasal route once daily Fluticasone Propionate 50 MCG/ACT Nasal Suspension ; 2 (two) sprays each nostril sprays each nostril daily for 30 days Quantity: 1 {Bottle} Refills: 0 Ordered: 25-Aug-2018 Start: 25-Aug-2018 End: 24-Sep-2018 Status: Inactive Start: 12-24-2013 End: 11-04-2014 take 2 spray(s) nasal route once daily FLUTICASONE PROPIONATE, 50MCG/ACT (Nasal Suspension) ; 2 (two) spray to each nostril daily for 0 days Quantity: 1 {Bottle} Refills: 0 Ordered: 04-Nov-2014 MD Kacy Kinsey Start: 24-Dec-2013 End: 04-Nov-2014 Status: Inactive Completed/Discontinued Medications Medication Drug Class(es) Dates Sig (Normalized) Sig (Original) azithromycin 250 mg oral tablet (20 sources) Macrolide Antimicrobial Start: 10-01-2012 End: 10-06-2012 ZITHROMAX Z-ANTHONY, 250MG (Oral Tablet) ; 2 (two) Tablet today and 1 tablet daily for the next 4 days for 5 days Quantity: 1 {z-anthony} Refills: 0 Ordered: 01-Oct-2012 REED Ramirez Start: 01-Oct-2012 End: 06-Oct-2012 Status: Inactive cefdinir 300 mg oral capsule (20 sources) Cephalosporin Antibacterial Start: 08-25-2018 End: 09-04-2018 take 1 capsule by mouth twice daily Cefdinir 300 MG Oral Capsule ; 1 Capsule two times daily for 10 days Quantity: 20 {Capsule} Refills: 0 Ordered: 25-Aug-2018 REED Ramirez Start: 25-Aug-2018 End: 04-Sep-2018 Status: Inactive cefuroxime 250 mg oral tablet (20 sources) Cephalosporin Antibacterial Start: 02-01-2016 End: 02-11-2016 take 1 tablet by mouth twice daily CEFTIN, 250MG (Oral Tablet) ; 1 (one) Tablet BID for 10 days Quantity: 20 {Tablet} Refills: 0 Ordered: 01-Feb-2016 REED Osborn Start: 01-Feb-2016 End: 11-Feb-2016 Status: Inactive cephalexin 500 mg oral tablet (20 sources) Cephalosporin Antibacterial Start: 11-06-2018 End: 11-16-2018 take 1 tablet by mouth twice daily Cephalexin 500 MG Oral Tablet ; 1 (one) Tablet BID for 10 days Quantity: 20 {Tablet} Refills: 0 Ordered: 06-Nov-2018 REED Osborn Start: 06-Nov-2018 End: 16-Nov-2018 Status: Inactive Start: 09-07-2016 End: 09-17-2016 take 1 capsule by mouth three times daily Cephalexin 500 MG Oral Capsule ; 1 (one) Capsule Capsule three times daily for 10 days Quantity: 30 {Capsule} Refills: 0 Ordered: 13-Sep-2016 MARCELLO Price Start: 07-Sep-2016 End: 17-Sep-2016 Status: Inactive codeine phosphate 2 mg/ml / guaiFENesin 20 mg/ml oral solution (20 sources) Opioid Agonist Start: 12-24-2013 End: 02-28-2014 take 1-2 [tsp_us] by mouth every six hours as needed GUAIFENESIN-CODEINE, 100-10MG/5ML (Oral Syrup) ; 1-2 teaspoon every six hours, as needed for cough for 0 days Quantity: 120 {Milliliter} Refills: 0 Ordered: 28-Feb-2014 MARCELLO Starks Start: 24-Dec-2013 End: 28-Feb-2014 Status: Inactive Comments: Medication taken as needed. may cause drowsiness Comment on above: Medication taken as needed. may cause drowsiness codeine phosphate 2 mg/ml / promethazine hydrochloride 1.25 mg/ml oral solution (20 sources) Opioid Agonist, Phenothiazine Start: 09-10-2016 End: 11-15-2016 Promethazine-Codeine 6.25-10 MG/5ML Oral Syrup ; 1-2 teaspoon(s) teaspoon(s) four times daily, as needed for 0 days Quantity: 120 {Milliliter} Refills: 0 Ordered: 15-Nov-2016 JESSA Dior Start: 10-Sep-2016 End: 15-Nov-2016 Status: Discontinued Comments: Medication taken as needed. Comment on above: Medication taken as needed. Ethinyl Estradiol / Levonorgestrel (20 sources) Progestin, Estrogen, Progestin-contain ing Intrauterine Device Start: 12-11-2017 End: 10-23-2018 take 1 tablet by mouth once daily Aviane 0.1-20 MG-MCG Oral Tablet ; 1 Tablet daily for 0 days Quantity: 2 {Packet} Refills: 6 Ordered: 23-Oct-2018 MARCELLO Starks Start: 11-Dec-2017 End: 23-Oct-2018 Status: Inactive famotidine 20 mg oral tablet (20 sources) Histamine-2 Receptor Antagonist Start: 12-07-2018 End: 03-14-2022 take 1 tablet by mouth once daily Famotidine 20 MG Oral Tablet ; 1 (one) Tablet daily for 0 days Quantity: 30 {Tablet} Refills: 5 Ordered: 14-Mar-2022 MARCELLO Nichole Start: 25-Oct-2019 End: 14-Mar-2022 Status: Inactive fluconazole 150 mg oral tablet (20 sources) Azole Antifungal Start: 01-20-2020 End: 01-21-2020 Diflucan 150 MG Oral Tablet ; 1 Tablet NOW for 1 days Quantity: 1 {Tablet} Refills: 0 Ordered: 20-Jan-2020 MD Andrew Jessica Start: 20-Jan-2020 End: 21-Jan-2020 Status: Inactive Comments: Take only if needed Start: 12-09-2016 End: 12-02-2017 Fluconazole 150 MG Oral Tabl et ; 1 (one) Tablet now for 0 days Quantity: 1 {Tablet} Refills: 0 Ordered: 02-Dec-2017 JESSA Del Rio Start: 09-Dec-2016 End: 02-Dec-2017 Status: Inactive Start: 10-07-2012 End: 10-08-2012 take 1 tablet by mouth once DIFLUCAN, 150MG (Oral Tabl et) ; 1 Tablet once for 1 days Quantity: 1 {Tablet} Refills: 0 Ordered: 07-Oct-2012 MD Tone Kauffman Start: 07-Oct-2012 End: 08-Oct-2012 Status: Inactive Comment on above: Take only if needed levoFLOXacin 500 mg oral tablet (20 sources) Quinolone Antimicrobial Start: 09-28-20 18 End: 10-23-19 19 take 1 tablet by mouth once daily Levaquin 500 MG Oral Tablet ; 1 (one) Tablet qd for 0 days Quantity: 10 {Tablet} Refills: 0 Ordered: 23-Oct-2018 MARCELLO Starks Start: 28-Sep-2018 End: 23-Oct-2018 Status: Inactive meclizine hydrochloride 25 mg oral tablet (20 sources) Antiemetic Start: 09-15-20 18 End: 10-23-19 19 take 1 tablet by mouth three times daily as needed Meclizine HCl 25 MG Oral Tablet ; 1 Tablet three times daily, as needed for 0 days Quantity: 30 {Tablet} Refills: 0 Ordered: 23-Oct-2018 MARCELLO Starks Elva Start: 15-Sep-2018 End: 23-Oct-2018 Status: Inactive Comments: Medication taken as needed. Comment on above: Medication taken as needed. moxifloxacin 400 mg oral tablet (20 sources) Quinolone Antimicrobial Start: 04-01-20 11 End: 04-11-20 11 take 1 tablet by mouth once daily AVELOX, 400MG (Oral Tablet) ; 1 Tablet qd for 10 days Quantity: 10 {Tablet} Refills: 0 Ordered: 01-Apr-2011 MD Tone Kauffman Start: 01-Apr-2011 End: 11-Apr-2011 Status: Inactive norethindrone 0.35 mg oral tablet (20 sources) Start: 08-28-20 10 End: 10-11-20 10 take 1 tablet by mouth once daily EMILIE, 0.35MG (Oral Tablet) ; 1 Tablet daily for 0 days Quantity: 30 {Tablet} Refills: 1 Ordered: 28-Aug-2010 MD Kacy Kinsey Start: 28-Aug-2010 End: 11-Oct-2010 Status: Discontinued nystatin 706801 unt/ml oral suspension (20 sources) Polyene Antifungal Start: 12-02-19 18 End: 12-07-19 18 take 5 mL by mouth four times daily Nystatin 899068 UNIT/ML Mouth/Throat Suspension ; 5 (five) Milliliter swish and swallow four times daily for 5 days Quantity: 100 {Milliliter} Refills: 0 Ordered: 02-Dec-2017 MD Andrew Jessica Start: 02-Dec-2017 End: 07-Dec-2017 Status: Inactive ondansetron 4 mg oral tablet (20 sources) Serotonin-3 Receptor Antagonist Start: 02-29-20 14 End: 11-04-19 15 take 1 tablet by mouth every six hours as needed for nausea ONDANSETRON HCL, 4MG (Oral Tablet) ; 1 (one) Tablet every six hours, as needed for nausea for 0 days Quantity: 20 {Tablet} Refills: 0 Ordered: 04-Nov-2014 MD Kacy Kinsey Start: 28-Feb-2014 End: 04-Nov-2014 Status: Inactive Comments: Medication taken as needed. Comment on above: Medication taken as needed. oxyCODONE hydrochloride 5 mg oral tablet (2 sources) Opioid Agonist Start: 12-14-19 19 End: 12-22-19 19 take 5 mg by mouth every six hours as needed Oxycodone Discontinued 5 MG PO EVERY 6 HOURS NEEDED 08 05December 14, 2018 1:00am December 21, 2018 1:10am polymyxin b 29825 unt/ml / trimethoprim 1 mg/ml ophthalmic solution (20 sources) Dihydrofolate Reductase Inhibitor Antibacterial, Polymyxin-class Antibacterial Start: 06-09-20 End: 06-16-20 take 1 drop(s) into the eye(s) four times daily Polytrim 31108-3.1 UNIT/ML-% Ophthalmic Solution ; 1 drops 4 TIMES A DAY TO AFFECTED EYE, UNTIL CLEARED for 7 days Quantity: 5 {Milliliter} Refills: 0 Ordered: 09-Jun-2020 REED Osborn Start: 09-Jun-2020 End: 16-Jun-2020 Status: Inactive predniSONE 20 mg oral tablet (20 sources) Start: 04-04-20 End: 05-15-20 23 predniSONE 20 mg tablet ; 1 (one) Tablet as directed for 0 days Quantity: 20 {Tablet} Refills: 0 Ordered: 15-May-2023 REED Osborn Start: 04-Apr-2022 End: 15-May-2023 Status: Inactive Comments: Take 3tabs qd for 3 days thenTake 2tabs qd for 3 days thenTake 1tab qd for 3 days thenTake 1/2tab qd for 4 days. Comment on above: Take 3tabs qd for 3 days thenTake 2tabs qd for 3 days thenTake 1tab qd for 3 days thenTake 1/2tab qd for 4 days. raNITIdine 150 mg oral tablet (20 sources) Histamine-2 Receptor Antagonist Start: 10-15-20 11 End: 09-03-20 13 take 1 tablet by mouth twice daily RANITIDINE HCL, 150MG (Oral Tablet) ; 1 Tablet two times daily for 0 days Quantity: 60 {Tablet} Refills: 2 Ordered: 03-Sep-2013 Start: 15-Oct-2011 End: 03-Sep-2013 Status: Inactive rivaroxaban 15 mg oral tablet (20 sources) Factor Xa Inhibitor take 1 tablet by mouth twice daily Xarelto 15 MG Oral Tablet ; 1 two times daily (15 MG) Status: Inactive Problems Active Problems Problem Classification Problem Date Documented Da te Episodic/Chronic Acquired foot deformities (20 sources) Right foot drop; Translations: [Foot drop, right foot] 05-15-2023 Episodic Administrative/social admission (20 sources) Education with explicit context; Translations: [Other specified counseling] 11-12-2018 Episodic Allergic reactions (20 sources) Inflammatory dermatosis; Translations: [Dermatitis, unspecified] 02-22-2011 Episodic Benign neoplasm of uterus (20 sources) Uterine leiomyoma; Translations: [Leiomyoma of uterus, unspecified] 05-15-2023 Episodic Biliary tract disease (20 sources) Gallstone; Translations: [Calculus of gallbladder without cholecystitis without obstruction] 05-15-2023 Episodic Comment on above: seen on CT (incident al finding) Chronic obstructive pulmonary disease and bronchiectasis (20 sources) Bronchitis; Translations: [Bronchitis, not specified as acute or chronic] 02-01-2016 Episodic Conditions associated with dizziness or vertigo (20 sources) Benign paroxysmal positional vertigo; Translations: [Benign paroxysmal vertigo, unspecified ear] 09-15-2018 Episodic Contraceptive and procreative management (20 sources) Contraception ; Translations: [Encounter for other contraceptive management] 08-13-2021 Episodic Deficiency and other anemia (20 sources) Anemia; Translations: [Anemia, unspecified] 05-15-2023 Episodic Diseases of mouth; excluding dental (20 sources) Glossitis; Translations: [Glossitis] 12-02-2017 Episodic Esophageal disorders (20 sources) Gastroesophageal reflux disease without esophagitis; Translations: [Gastro-esophageal reflux disease without esophagitis] 05-15-2023 Chronic Genitourinary symptoms and ill-defined conditions (20 sources) Asymptomatic microscopic hematuria; Translations: [Asymptomatic microscopic hematuria] 05-15-2023 Episodic Immunizations and screening for infectious disease (20 sources) Needs influenza immunization; Translations: [Encounter for immunization] 09-01-2020 Episodic Influenza (20 sources) Influenza with other respiratory manifestations 09-29-2012 Episodic Intestinal infection (20 sources) Viral gastroenteritis; Translations: [Viral intestinal infection, unspecified] 02-28-2014 Episodic Joint disorders and dislocations; trauma-related (3 sources) Chondromalacia patellae, right knee; Translations: [Chondromalacia patellae, right knee] Onset: Chronic Mycoses (20 sources) Candidiasis of vulva and vagina; Translations: [Mycosis] 09-29-2012 Episodic Nonspecific chest pain (20 sources) Chest pain; Translations: [Chest pain, unspecified] 10-11-2016 Episodic Other aftercare (20 sources) Encounter for removal of sutures 07-21-2014 Episodic Other aftercare (20 sources) H/O: anticoagulant therapy; Translations: [halfway (current) use of anticoagulants] 11-12-2018 Episodic Other aftercare (20 sources) Long-term (current) use of other medications 04-01-2011 Episodic Other and unspecified benign neoplasm (20 sources) Hemangioma of liver; Translations: [Hemangioma of intra-abdominal structures] 05-15-2023 Episodic Other and unspecified benign neoplasm (20 sources) Benign neoplasm of soft tissue; Translations: [Melanocytic nevi, unspecified] 05-15-2023 Episodic Other circulatory disease (20 sources) Low blood pressure; Translations: [Hypotension, unspecified] 05-15-2023 Episodic Other congenital anomalies (20 sources) Pectus excavatum; Translations: [Pectus excavatum] 05-15-2023 Chronic Other connective tissue disease (20 sources) Pain of right lower leg; Translations: [Pain in right lower leg] 05-15-2023 Episodic Other connective tissue disease (20 sources) Pain in right lower limb; Translations: [Pain in right leg] 05-15-2023 Episodic Other eye disorders (20 sources) Eye symptom; Translations: [Unspecified disorder of eye and adnexa] 05-15-2023 Episodic Other female genital disorders (20 sources) H/O: menorrhagia; Translations: [Personal history of other diseases of the female genital tract] 05-15-2023 Episodic Other female genital disorders (20 sources) Mass of left ovary; Translations: [Other noninflammatory disorders of ovary, fallopian tube and broad ligament] 05-15-2023 Episodic Other nervous system disorders (20 sources) Paresthesia of foot ; Translations: [Anesthesia of skin] 05-15-2023 Episodic Other non-traumatic joint disorders (20 sources) Pain in unspecified knee; Translations: [Pain in joint, lower leg] 05-15-2023 Episodic Other non-traumatic joint disorders (20 sources) Swelling of knee joint; Translations: [Effusion, right knee] 05-15-2023 Episodic Other non-traumatic joint disorders (20 sources) Pain in right knee; Translations: [Pain in joint, lower leg] 05-14-2024 Episodic Other nutritional; endocrine; and metabolic disorders (20 sources) H/O: thyroid disorder; Translations: [Personal history of other endocrine, nutritional and metabolic disease] 05-15-2023 Episodic Other screening for suspected conditions (not mental disorders or infectious disease) (20 sources) Patient encounter status; Translations: [Encounter for other screening for malignant neoplasm of breast] 05-15-2023 Episodic Other upper respiratory infections (20 sources) Sinusitis; Translations: [Chronic sinusitis, unspecified] 08-25-2015 Chronic Other upper respiratory infections (20 sources) Acute sinusitis; Translations: [Acute sinusitis, unspecified] Onset: 5 02-01-2016 Episodic Otitis media and related conditions (20 sources) Nonsuppurative otitis media, not specified as acute or chronic; Translations: [Finding of fluid behind tympanic membrane] 12-24-2013 Episodic Phlebitis; thrombophlebitis and thromboembolism (20 sources) H/O: Deep vein thrombosis; Translations: [Personal history of other venous thrombosis and embolism] Onset: 8 05-15-2023 Episodic Pneumonia (except that caused by tuberculosis or sexually transmitted disease) (20 sources) Pneumonia; Translations: [Pneumonia, unspecified organism] 09-13-2016 Episodic Residual codes; unclassified (20 sources) Body mass index 20-24 - normal; Translations: [Body mass index (BMI) 22.0-22.9, adult] 12-11-2017 Episodic Residual codes; unclassified (20 sources) H/O: neoplasm; Translations: [Personal history of other specified conditions] 05-15-2023 Episodic Thyroid disorders (20 sources) Thyroid nodule; Translations: [Nontoxic single thyroid nodule] 05-15-2023 Chronic Unclassified (20 sources) deliveries 06-09-2020 Comment on above: 1. Unclassified (20 sources) Number of Children 06-09-2020 Comment on above: 1. Unclassified (20 sources) Number of Pregnancies 06-09-2020 Comment on above: 1. Unclassified (20 sources) Well adult female - The patient feels well with no complaints, has good energy level and is sleeping well. The patient has a balanced diet. The patient exercises none (active). The patient sleeps 7 (8) hours per night. Note for Well adult female: last pap 2016 and HPV 05-14-2024 Viral infection (20 sources) Plantar wart 09-29-2012 Episodic Past or Other Problems Problem Classification Problem Date Documented Date Episodic/Chronic Joint disorders and dislocations; trauma-related (1 source) Other tear of medial meniscus, current injury, unspecified knee, initial encounter; Translations: [Other tear of medial meniscus, current injury, unspecified knee, initial encounter] Onset: 10-26-2024 Episodic Unclassified (20 sources) Knee pain - Note for Knee pain: Pt seen in office a year ago for knee swelling. Had knee surgery in Aug 2022. Pt states 'still not good. Foot flops, tried meloxicam and steroids w/ no help. Continued c/o pain. Surgeon referred Pt back to PCP.Right knee surgery - laproscopic (9 months ago) - meniscus and excess tissue; no more swelling since then. Saw Dr. Garcia (ortho). Saw electric welder helper - no concern for issue there other than maybe OA.Has lots of burning under knee cap (since surgery). Mild tenderness along infrapatellar area. Sometimes feels like foot could go to sleep. Feels like foot will flop around when walking - like a foot drop (really noticed that this summer).Took meloxicam this summer without improvement. Also did a course of an oral steroid - finished that up a couple of weeks ago - without improvement.Ortho is feeling like maybe it is not knee related.No falls or loss of balance. Energy level has been normal.No real vision issues - thinks may need bifocals.Has very strong family history of MS.No low back pain.Does have intermittent tingling in right leg that seems to be positional based.Ovaries removed end of January 2023. 05-15-2023 Unclassified (20 sources) RE CK LEG - right leg is swollen; has been icing, Advil; not too painful, more uncomfortable; was wearing knee wrap but hasn't worn since yesterday 04-04-2022 Unclassified (20 sources) Knee pain - The knee pain has been occurring in an intermittent pattern for 2 weeks. The course has been worsening (venous doppler done end of February - no DVT but showed popliteal cyst). The knee pain is mild in the right knee. The knee pain is described as being located in the entire knee. The knee pain is relieved by ice (3 times a day; Advil 400mg as needed). Note for Knee pain: Moving does help with knee. No significant pain but uncomfortable. Initially had pain in posterior knee and felt like had a pulled muscle. No known injury. 03-28-2022 Unclassified (20 sources) thigh swelling - pt had some pain behind her right knee a few weeks agoright knee has been swelling for a few days now- it is getting worse, swelling around whole kneefoot is tingly and feels like its going to sleeppt had a blood cot in the right calf years ago-- almost 4 years ago very tight throughout her thigh, its uncomfortable sitting-- not severely painfulhard to go up steps due to bending it not warm to the touch and no redness-- she did not have these sx w her first blood clot either ( her first blood clot is was just swelling) no specific injury the patient can recall 03-14-2022 Unclassified (20 sources) Well adult female - The patient feels well with no complaints, has good energy level and is sleeping well. The first day of the last menstrual period was : (2019). The patient has a balanced diet. The patient exercises 3 - 4 times per week. The patient sleeps 8 (7-8) hours per night. Note for Well adult female: pt has mammogram scheduled for 10/08/21Patient had total hysterectomy in 2019. 09-19-2021 Unclassified (20 sources) Knee Pain - The onset of the knee pain has been acute and has been occurring in a persistent pattern for 2 weeks. The course has been without change. The knee pain is mild to moderate in the left knee. The knee pain is characterized as a dull aching (stiffness). The knee pain is aggravated by physical activity. Note for Knee pain: Has a history of dvt. No known hx of injury and no new activities. 05-15-2021 Unclassified (20 sources) Eye symptoms - The onset of the eye symptoms has been acute and has been occurring in a persistent pattern for 2 days. The course has been constant. The eye symptoms are described as mild to moderate and involve both eyes (right one - eyelids felt swollen). The symptoms are described as pain (garcia), itching, drainage (watery) and swelling. There has been no associated runny nose or sore throat. Note for Eye symptoms: Using flonase and over the counter allergy pill.Some photophobia. No change in vision.Was at the fair last week with animals and dust but no known foreign body.Started school yesterday. 06-09-2020 Unclassified (20 sources) Leg pain - The leg pain began suddenly and has been occurring for 2 days. The symptoms have been occurring in an increasing pattern. Note for Leg pain: -Known dvt on right lower leg. Now her thigh feels weird. 11-20-2018 Unclassified (20 sources) Cold Symptoms - Symptoms include nasal congestion, ear pain (today), sore throat (today), dry cough, productive cough, fever (101- this started Friday along with feeling achy; lately has only been up to 99 and intermittent) and headache, but do not include runny nose or facial pain. The onset was gradual 5 day(s) ago. The symptoms occur constantly. The patient describes this as moderate in severity and worsening. Current treatment includes an oral decongestant, a decongestant nasal spray and acetaminophen (this am). The patient has been exposed to an individual with similar symptoms. 11-06-2018 Unclassified (20 sources) Follow up from hospital stay - Name of Hospital: in [facility]. The patient was hospitalized for DVT. New medications include Xarelto. Note for Follow up from hospital stay: -During stay at hospital for DVT, pt was also dx with anemia resulting in two units of blood. D/c hgb was 9.6. Her OCP was discontinued due to the DVT. Her menses was heavier than usual. She also had notable hypotension during her stay.Incidental findings included thyroid nodules and liver hemangioma. 10-25-2018 Unclassified (20 sources) Dizziness - The onset of the dizziness has been acute and has been occurring in a persistent pattern for hours. The course has been increasing. The dizziness is characterized as lightheadedness and spinning of the environment. There has been associated nausea and vomiting, while there has been no associated fever or upper respiratory infection symptoms. The dizziness is relieved by lying still. The dizziness is exacerbated by head turning, bending over, lying down, rolling over in bed, getting up quickly, standing and walking. The symptoms have been associated with nausea and vomiting, while the symptoms have not been associated with ear infection (but has been struggling with middle ear effusion), fever, headache, loss of hearing, palpitations, paresthesia, recent head trauma, sensation of fullness or tinnitus. 09-15-2018 Unclassified (20 sources) Cold Symptoms - Symptoms include nasal congestion, runny nose, non-purulent sputum, ear pain, ear fullness and general malaise, but do not include sneezing, hoarseness, dry cough, fever, headache or facial pain. The onset was gradual 2 week(s) ago. The symptoms occur frequently. The patient describes this as moderate in severity and unchanged. Current treatment includes non-prescription cold medication. Risk factors do not include smoking. The patient has been exposed to an individual with similar symptoms. Patient denies history of seasonal allergies, recurrent sinusitis or recurrent ear infections. Note for Upper respiratory infection: [facility] for [facility] pain, was advised no infection -but fluid bulging ear-and to take sudafed which she has done for the last 2 weeks . Ear is still painful and occasionally congested. 08-25-2018 Unclassified (20 sources) Well adult female - The patient feels well with no complaints, has good energy level and is sleeping well. The first day of the last menstrual period was : (11/26/2017- regular-ocp). The current method of contraception is: oral contraceptives. The patient takes supplemental vitamins. The patient exercises 3 - 4 times per week. The patient sleeps 9 hours per night. Note for Well adult female: Weight is down 14 pounds - diet/exercise. 12-11-2017 Unclassified (20 sources) Concern - Patient is here today with a concern of whiteness to the left side of tongue. Around Denise, patient had stomach flu and was vomiting. Since then, has noticed that her tongue has felt different. The area of the whiteness has increased in size the past couple of days. Denies having any mouth or tongue pain/soreness. No treatment at this time. 12-02-2017 Unclassified (20 sources) Well adult female - The patient feels well with no complaints, has good energy level and is sleeping well. The current method of contraception is: oral contraceptives. The patient has a balanced diet and takes supplemental vitamins. The patient exercises 3 - 4 times per week. Note for Well adult female: Patient recently had pneumonia, done with antibiotics. Would like her lungs listened to as she started with another sickness about 5 days ago; improving. 11-15-2016 Unclassified (20 sources) Right sided chest discomfort - Pt here today because ever since she got over pneumonia 1 month ago she has been experiencing right sided chest and back pain. Hurts to cough or sneeze. Painful to take a deep breath in. PO 99%. Coughs rarely but it is dry. No fever or chills. Pain worsens toward evening and will also get some achiness in joints/muscles.Feels better as far as the Pneumonia goes. Takes Advil for the pain which takes the edge off. reviewed by B 10-11-2016 Unclassified (20 sources) URI Worse - Pt here today because she was seen 09/10/16 by [facility] and diagnosed with Viral URI. Had negative flu swab on this date. Was given Promethazine with Codeine. She was treated on 09/07/16 with Cephalexin for sinusitis and has couple days left yet to take. Pt is still running low grade fever and highest has been 100. 99.2 here today in office. Is coughing and feels like chest is more tight and some wheezing at times. PO 97%. Unable to expectorate any phlegm. Just feels miserable and aches all over. Appetite down but is drinking and urinating. No vomiting but some nausea . No diarrhea. reviewed by [facility] 09-13-2016 Unclassified (20 sources) Cold Symptoms - Symptoms include nasal congestion, runny nose, non-purulent sputum, ear fullness, dry cough, productive cough (she feels short of breath and her chest hurts), fever (101-102), general malaise (achey all over) and headache, but do not include sneezing or sore throat. The onset was sudden 5 day(s) ago. The symptoms occur constantly. The patient describes this as severe and worsening. Current treatment includes antibiotics (she was in on Friday after two days of sx and treated for sinusitis with cephalexin), acetaminophen and NSAIDs. The patient has not been exposed to an individual with similar symptoms. Medical history includes recurrent sinusitis, but patient denies history of asthma or recurrent ear infections. Note for Upper respiratory infection: nausea is increasing and fever persists 09-10-2016 Unclassified (20 sources) Cold Symptoms - Symptoms include nasal congestion (head congestion), runny nose, scratchy throat, dry cough, productive cough, wheezing, fever, chills, general malaise, headache and facial pain. The onset was sudden 2 day(s) ago. The symptoms occur constantly. The patient describes this as moderate in severity and worsening. Current treatment includes NSAIDs. Risk factors do not include smoking. The patient has been exposed to an individual with similar symptoms. 09-07-2016 Unclassified (20 sources) Cold Symptoms - Symptoms include sneezing, nasal congestion, runny nose, ear pain (right side), ear fullness, scratchy throat, dry cough (complains of chest tightness and shortness of breath), fever (low grade) and headache, but do not include sore throat. The onset was sudden 5 day(s) ago. The symptoms occur constantly. The patient describes this as moderate in severity and worsening. Current treatment includes allergy medications and acetaminophen. 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 Medical history includes seasonal allergies. 02-01-2016 Unclassified (20 sources) Well adult female - The patient feels well with no complaints. The first day of the last menstrual period was : (11/01/2015). The patient has a balanced diet and takes supplemental vitamins (multivitamin). The patient exercises 3 - 4 times per week. The patient sleeps 8 hours per night. Note for Well adult female: Reports that she has had cold symptoms for about 1 week. Has scratchy throat, dry cough, ear fullness. No fever. Wonders if it is related to allergies. reviewed by [facility] 11-06-2015 Unclassified (20 sources) Cold Symptoms - Symptoms include nasal congestion, runny nose, purulent discharge, ear pain (both ears/pressure.), scratchy throat, dry cough, fever (highest temp 100.1 which was this morning. Last dose of Tylenol was 6 am. Temp now is 99.4), general malaise, headache and facial pain, but do not include wheezing (but chest feels tight. PO 97%.). The onset was gradual 3 day(s) ago. The patient describes this as moderate in severity and worsening. Current treatment includes non-prescription cold medication (Advil cold and sinus occassionally but mainly taking Claritin.). Risk factors do not include smoking. The patient has been exposed to an individual with similar symptoms (Son was about 2 weeks ago. Was seen but diagnosed as viral.). Medical history includes recurrent sinusitis. Note for Upper respiratory infection: reviewed by [facility] 08-25-2015 Unclassified (20 sources) Well adult female - The patient feels well with no complaints, has good energy level and is sleeping well. The first day of the last menstrual period was : (10/12/2014). The patient has a balanced diet and takes supplemental vitamins. The patient exercises 3 - 4 times per week. 11-04-2014 Unclassified (20 sources) Gastroenteritis - The history today is reported by the patient. Onset was sudden 3 day(s) ago. Symptoms include diarrhea (for first 2 days), fever (at onset), nausea, vomiting (x 1 Sat night), abdominal pain (epigastric), decreased appetite and maintaining hydration. The diarrhea has been watery. 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 Note for Gastroenteritis: LMP 2 weeks ago; on OCPno new travel, foods, untreated watertried antacids, tylenol, peptobismol, omeprazole 02-28-2014 Unclassified (20 sources) Cold Symptoms - Symptoms include nasal congestion, ear pain (left sided), sore throat, dry cough, fever (low grade), general malaise and headache. The onset was sudden 4 day(s) ago. The symptoms occur constantly. The patient describes this as moderate in severity and worsening. Current treatment includes non-prescription cold medication and acetaminophen. Risk factors do not include child in daycare or smoking. The patient has not been exposed to an individual with similar symptoms. Note for Upper respiratory infection: treated for sinus infection 6 weeks ago with cephalexin and sx improved 12-24-2013 Unclassified (20 sources) Cold Symptoms - Symptoms include sneezing, ear pain (left side), scratchy throat, hoarseness, dry cough, fever (low grade), general malaise, headache and facial pain. The onset was sudden 4 day(s) ago. The symptoms occur constantly. The patient describes this as moderate in severity and unchanged. Current treatment includes non-prescription cold medication. Patient denies history of seasonal allergies or asthma. Note for Upper respiratory infection: Had flu injection this year. 11-16-2013 Unclassified (20 sources) Well Adult, female - The patient feels well with no complaints. The first day of the last menstrual period was : (09-22-13). The current method of contraception is: oral contraceptives. The patient has a balanced diet and takes supplemental vitamins. The patient exercises 3 - 4 times per week. The patient sleeps 8 hours per night. Note for Well Adult, female: reviewed by [facility] 10-19-2013 Unclassified (20 sources) Cold Symptoms - Symptoms include nasal congestion, runny nose, purulent discharge, ear pain (left side), scratchy throat, productive cough (with PND at night), fever (low grade) and general malaise, but do not include headache. The onset was sudden 2 day(s) ago. The symptoms occur frequently. The patient describes this as moderate in severity and worsening. Current treatment includes non-prescription cold medication (advil cold and sinus) and rest. 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 09-03-2013 Unclassified (20 sources) Ear pain - The onset of the pain has been acute and has been occurring in a persistent pattern for 1 week. The course has been constant. The pain is described as a moderate pressure (feels like there is water in it). The pain is felt in the left ear. The symptoms have been associated with fever (up to 100) and runny nose, while the symptoms have not been associated with cough. Note for Ear pain: Was seen at [facility] on Friday and given a zpak for left om (low grade fever and ear pain). She has continued with fever and ear pain throughout the weekend. Today, is finally able to blow nose and thinks that is helping. 12-07-2012 Unclassified (20 sources) Well Adult, female - The patient feels well with no complaints, has good energy level and is sleeping well. The first day of the last menstrual period was : (09/23/12). The patient has a balanced diet and takes supplemental vitamins. The patient exercises 3 - 4 times per week. 10-15-2012 Unclassified (20 sources) Cold Symptoms - Symptoms include ear pain, sore throat (x 1 day), dry cough, general malaise and headache, but do not include sneezing, nasal congestion, runny nose, fever or chills. The onset was gradual 4 day(s) ago. The symptoms occur constantly. The patient describes this as moderate in severity and worsening (states that she was feeling better yesterday, then acutely last night ST and is significant in severity). Current treatment includes cough suppressants (cough drops), acetaminophen and NSAIDs. Risk factors do not include smoking. The patient has been exposed to an individual with similar symptoms. Medical history includes recurrent strep pharyngitis and tonsillectomy, but patient denies history of seasonal allergies, recurrent sinusitis, asthma or recurrent ear infections. 10-01-2012 Unclassified (20 sources) Cold Symptoms - Symptoms include nasal congestion, runny nose, sore throat, dry cough (deep and congested, hurts to cough), fever (Tmax 100), chills, general malaise and headache, but do not include ear pain. The onset was sudden 12 hour(s) ago. The symptoms occur constantly. The patient describes this as moderate in severity and worsening. Current treatment includes acetaminophen. Risk factors do not include smoking. 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 her son is also ill.). Note for Upper respiratory infection: -States she had flu vaccine this fall. 09-29-2012 Unclassified (20 sources) Well Adult, female - The patient feels well with no complaints, has good energy level and is sleeping well. The first day of the last menstrual period was : (09/25/2011). The patient has a balanced diet and takes supplemental vitamins. Patient exercises 3 - 4 times per week. 10-15-2011 Unclassified (20 sources) Cold Symptoms - Symptoms include sneezing, nasal congestion, runny nose, purulent discharge, ear pain (left), sore throat, fever (low grade), headache and facial pain, but do not include dry cough. The onset was sudden 4 day(s) ago. The symptoms occur constantly. The patient describes this as moderate in severity and unchanged. Current treatment includes acetaminophen and NSAIDs. The patient has been exposed to an individual with similar symptoms. Medical History Includes recurrent sinusitis. 10-12-2011 Unclassified (20 sources) Cold Symptoms - Symptoms include nasal congestion, runny nose (yellow), ear pain (L>R - pressure), scratchy throat, fever (highest was 99.5), headache and facial pain, but do not include dry cough. The onset was sudden 2 day(s) ago. The symptoms occur constantly. The patient describes this as moderate in severity and worsening. Current treatment includes non-prescription cold medication (sudafed) and NSAIDs (advil). Risk factors do not include smoking. Note for Cold Symptoms: Son was in on Friday with an ear infection. 07-24-2011 Unclassified (20 sources) follow up ear pain - continues with discomfort in left ear. she has taken decongestants and 3 courses of antibiotics. sx started late february. (had zpack late february from [facility], omnicef on 03/19, decongestants on 03/21 and avelox on 04/01.) she feels discomfort when she tilts her head or lays down at night. feels it is not cleared up. no fever or nasal congestion/runny nose, no hearing loss 05-06-2011 Unclassified (20 sources) continued ear pain - Pt was seen on 03/19 for f/u to [facility] for OM, was given zpak. She was then given stronger atb here and told to come back inb. She states she has been on that atb for 48hrs. It is classifier tender to the touch and she can't hear out of it. Everything sounds muffled. No drainage, no fever. Ears feel like they could pop and then don't. 03-21-2011 Unclassified (20 sources) Ear pain - The onset of the pain has been acute and has been occurring in a persistent pattern for 3 days. The course has been constant. The pain is described as a pressure and plugged. The pain is felt in both ears (but left is worse.). The symptoms have been associated with decreased hearing, fever (last week but none since abx) and vertigo, while the symptoms have not been associated with runny nose. Note for Ear pain: Pt states she was at [facility] last Friday for fever and ear pain. Told she had an infection and put on zpak. She has finished atb, but states she now has the feeling that her ears are plugged, left one is worse. It is causing some dizziness. 03-19-2011 Unclassified (20 sources) re-check wart - Pt here today to re-check wart on right toe. She says it is much better, however she has noticed a wart on the bottom of her left foot she would like removed. 03-15-2011 Unclassified (20 sources) warts and a rash - Pt presents today first for some warts on her feet. She has several large ones on her right 3rd toe as well as several on the bottom of her left foot. She then started yesterday with a rash on bilateral feet. It is red and raised and she states it itches terribly. No drainage from those. No new exposures altho had tried a med for athlete's foot to the warts as they initially seemed to be athlete's foot 02-22-2011 Unclassified (20 sources) Cold Symptoms - Symptoms include nasal congestion, runny nose, non-purulent sputum, ear pain (last night), sore throat (worst symptom), productive cough, fever (low grade), chills, general malaise, headache and facial pain, but do not include sneezing, ear fullness or wheezing. The onset was sudden 3 day(s) ago. The symptoms occur constantly. The patient describes this as moderate in severity and worsening. Current treatment includes non-prescription cold medication and acetaminophen. The patient has been exposed to an individual with an upper respiratory infection and an individual with strep. Medical History Includes recurrent strep pharyngitis and tonsillectomy (satrep after tonsillectomy as well). 12-10-2010 Unclassified (20 sources) needing her pap. - Is here today to have her annual pap done. Had PE recently but was on her period that day. Also c/o congestion, facial pressure and dry cough. No fever. Duration of sx: 1 day. Wants me to check ears. Is tolerating OCPs-just started this month. 10-11-2010 Unclassified (20 sources) Well adult female - The patient feels well with no complaints. The patient has a balanced diet. Patient exercises 3 - 4 times per week. Note for Well adult female: Pt is on her period right now, so would like to defer the pap testing and bimanual exam for another visit. Would also like to discuss her ocp because she is no longer breast feeding. Likes the progesterone only pill but understands it is not as effective once weaning. 09-25-2010 Unclassified (1 source) Well adult female 05-14-2024 Unclassified (12 sources) Pre-operative clearance - Surgical procedure(s) planned: other ((R) knee diagnostic scope). Date of procedure: (10/19/24) Location of procedure: ([facility]) There have been no problems with general anesthesia or blood/blood products. Prosthetics include eye glasses. 10-08-2024 Unclassified (3 sources) Well adult female - The patient feels well with no complaints, has good energy level and is sleeping well. The patient is not using any method of contraception at this time. The patient has a balanced diet and takes no supplemental vitamins & iron. The patient exercises weekly. The patient sleeps 8 hours per night. Note for Well adult female: No concerns today. 04-27-2025 Results Test Name Value Interpretation Reference Range Facility [facility] 04-12-2025 Albumin [Mass/Vol] 4.4 g/dL Normal 3.6-5.1 [facility] Comment on above: Performed By: #### 7 600, [id number], [id number] #### [facility] [place] [id number] [employer] Supervisor: Vargas Artis MD Albumin/Globulin [Mass ratio] 1.7 {ratio} Normal 1.0-2.5 [facility] Comment on above: Performed By: #### 7 600, [id number], [id number] #### [facility] [place] [id number] [employer] Supervisor: Vargas Artis MD ALP [Catalytic activity/Vol] 68 U/L Normal 31-125 [facility] Comment on above: Performed By: #### 7 600, [id number], [id number] #### [facility] [place] [id number] [employer] Supervisor: Vargas Artis MD ALT [Catalytic activity/Vol] 15 U/L Normal 6-29 [facility] Comment on above: Performed By: #### 7 600, [id number], [id number] #### [facility] [place] [id number] [employer] Supervisor: Vargas Artis MD AST [Catalytic activity/Vol] 14 U/L Normal 10-35 [facility] Comment on above: Performed By: #### 7 600, , [id number] #### [facility] of [place] [address] [employer] Supervisor: Vargas Artis MD Bilirubin [Mass/Vol] 1.3 mg/dL High 0.2-1.2 [facility] Comment on above: Performed By: #### 7 600, , [id number] #### [facility] of [address], [address] [place] [address] [employer] Supervisor: Vargas Artis MD BUN/CREATININE RATIO SEE NOTE: Normal 6-22 [facility] Comment on above: Result Comment: Not Reported: BUN and Creatinine are within reference range. Performed By: #### 7 600, , [id number] #### [facility] of [address], [address] [place] [address] [employer] Supervisor: Vargas Artis MD Calcium [Mass/Vol] 9.6 mg/dL Normal 8.6-10.2 [facility] Comment on above: Performed By: #### 7 600, , [id number] #### [facility] of [place] [address] [employer] Supervisor: Vargas Artis MD Chloride [Moles/Vol] 106 mmol/L Normal 98-110 [facility] Comment on above: Performed By: #### 7 600, , [id number] #### [facility] of [place] [address] [employer] Dietary Service Supervisor: Vargas Artis MD CO2 [Moles/Vol] 31 mmol/L Normal 20-32 [facility] Comment on above: Performed By: #### 7 600, , [id number] #### [facility] [place] [address] [employer] Supervisor: Vargas Artis MD Creatinine [Mass/Vol] 0.87 mg/dL Normal 0.50-0.99 [facility] Comment on above: Performed By: #### 7 600, , 66872 #### [facility] [address], [address] [place] [address] [employer] Supervisor: Vargas Artis MD GFR/1.73 sq M.predicted among non-blacks MDRD (S/P/Bld) [Vol rate/Area] 82 mL/min/{1.73_m2} Normal > OR = 60 [facility] Comment on above: Performed By: #### 7 600, , [id number] #### [facility] of [address], [address] [place] [address] [employer] Supervisor: Vargas Artis MD Globulin (S) [Mass/Vol] 2.6 g/dL Normal 1.9-3.7 [facility] Comment on above: Performed By: #### 7 600, , 71227 #### [facility] of [address], [address] [place] [address] [employer] Supervisor: Vargas Artis MD Glucose [Mass/Vol] 94 mg/dL Normal 65-99 [facility] Comment on above: Result Comment: Fasting reference interval Performed By: #### 7 600, , 84879 #### [facility] [place] [address] [employer] Supervisor: Vargas Artis MD Potassium [Moles/Vol] 4.2 mmol/L Normal 3.5-5.3 [facility] Comment on above: Performed By: #### 7 600, , 90155 #### [facility] [place] [address] [employer] Supervisor: Vargas Artis MD Protein [Mass/Vol] 7.0 g/dL Normal 6.1-8.1 [facility] Comment on above: Performed By: #### 7 600, , 16206 #### [facility] of [address], [address] [place] [address] [employer] Supervisor: Vargas Artis MD Sodium [Moles/Vol] 143 mmol/L Normal 135-146 [facility] Comment on above: Performed By: #### 7 600, 00486, 05124 #### [facility] [address], [address] [place] [address] [employer] Supervisor: Vargas Artis MD Urea nitrogen [Mass/Vol] 19 mg/dL Normal 7-25 [facility] Comment on above: Performed By: #### 7 600, 09350, 97401 #### [facility] [address], [address] [place] [address] [employer] Supervisor: Vargas Artis MD LIPID PANEL, [facility] - Cholesterol [Mass/Vol] 167 mg/dL Normal <200 [facility] Comment on above: Performed By: #### 7 600, 16727, 69846 #### [facility] [address], [address] [place] [address] [employer]ary Service Supervisor: Vargas Artis MD Cholesterol in HDL [Mass/Vol] 67 mg/dL Normal > OR = 50 [facility] Comment on above: Performed By: #### 7 600, 32243, 57933 #### [facility] [place] [address] [employer] Supervisor: Vargas Artis MD Cholesterol in LDL [Mass/Vol] 84 mg/dL Normal [facility] Comment on above: Result Comment: Refe rence range: <100 Desirable range <100 mg/dL for primary prevention; <70 mg/dL for patients with CHD or diabetic patients with > or = 2 CHD risk factors. LDL-C is now calculated using the Silvestre-Teresa calculation, which is a validated novel method providing better accuracy than the Friedewald equation in the estimation of LDL-C. Silvestre ROBISON et al. AMBROCIO. 2013;310(19): 8041-4192 (http://education.Bloomspot.[employer]/faq/AIT302) Performed By: #### 7 600, 05529, 42887 #### [facility] [address], [address] [place] [address] [employer] Supervisor: Vargas Artis MD Cholesterol.total/Ch olesterol in HDL [Mass ratio] 2.5 {ratio} Normal <5.0 [facility] Comment on above: Performed By: #### 7 600, 86066, 97569 #### [facility] [place] [address] [employer] Service Supervisor: Vargas Artis MD NON HDL CHOLESTEROL 100 mg/dL (calc) Normal <130 [facility] Comment on above: Result Comment: For patients with diabetes plus 1 major ASCVD risk factor, treating to a non-HDL-C goal of <100 mg/dL (LDL-C of <70 mg/dL) is considered a therapeutic option. Performed By: #### 7 600, 63126, 37975 #### [facility] [place] [address] [employer] Supervisor: Vargas Artis MD Triglyceride [Mass/Vol] 75 mg/dL Normal <150 [facility] Comment on above: Performed By: #### 7 600, 85551, 72865 #### [facility] [place] [address] [employer] Supervisor: Vargas Artis MD TSH W/REFLEX TO FT4on 2024 TSH W/REFLEX TO FT4 1.14 mIU/L Normal [facility] Comment on above: Result Comment: Refe rence Range > or = 20 Years 0.40-4.50 Ranges First trimester 0.26-2.66 Second trimester 0.55-2.73 Third trimester 0.43-2.91 Performed By: #### 7 600, 21323, 79039 #### [facility] [place] [address] [employer] Supervisor: Vargas Artis MD Laboratory - Chemistry and C hemistry - challengeon 04-11-2025 Albumin [Mass/Vol] 4.4 g/dL Normal 3.6 - 5.1 g/dL [facility] Albumin/Globulin [Mass ratio] 1.7 {ratio} Normal 1.0 - 2.5 [facility] ALP [Catalytic activity/Vol] 68 U/L Normal 31 - 125 U/L [facility], [facility].; [facility], [facility]. ALT [Catalytic activity/Vol] 15 U/L Normal 6 - 29 U/L [facility], [facility].; [facility], [facility]. AST [Catalytic activity/Vol] 14 U/L Normal 10 - 35 U/L [facility], [facility].; [facility], [facility]. Bilirubin [Mass/Vol] 1.3 mg/dL Abnormal 0.2 - 1 .2 mg/dL [facility], [facility].; [facility], [facility]. Calcium [Mass/Vol] 9.6 mg/dL Normal 8.6 - 10. 2 mg/dL [facility], [facility].; [facility], [facility]. Chloride [Moles/Vol] 106 mmol/L Normal 98 - 11 0 mmol/L [facility], [facility].; [facility], [facility]. Cholesterol [Mass/Vol] 167 mg/dL Normal [facility], [facility].; [facility], [facility]. Cholesterol in HDL [Mass/Vol] 67 mg/dL Normal [facility].; [facility], [facility]. Cholesterol in LDL [Mass/Vol] 84 mg/dL Normal [facility], [facility].; [employer] [facility], [facility]. CO2 [Moles/Vol] 31 mmol/L Normal 20 - 32 mmol/L [facility], [facility].; [employer] [facility], [facility]. Creatinine [Mass/Vol] 0.87 mg/dL Normal 0.50 - 0.99 mg/dL [facility], [facility].; [facility], [facility]. GFR/1.73 sq M.predicted among non-blacks MDRD (S/P/Bld) [Vol rate/Area] 82 mL/min/{1.73_m2} Normal [facility], [facility].; [employer] [facility] Glucose [Mass/Vol] 94 mg/dL Normal 65 - 99 mg/dL [facility], [facility].; [employer] [facility] Potassium [Moles/Vol] 4.2 mmol/L Normal 3.5 - 5.3 mmol/L [facility], [facility].; [employer] [facility], [facility]. Protein [Mass/Vol] 7.0 g/dL Normal 6.1 - 8.1 g/dL [facility].; [facility]. Sodium [Moles/Vol] 143 mmol/L Normal 135 - 146 mmol/L [facility].; [facility]. Triglyceride [Mass/Vol] 75 mg/dL Normal [facility].; [employer] [facility], [place]. Urea nitrogen [Mass/Vol] 19 mg/dL Normal 7 - 25 mg/dL [facility].; [employer] [facility]. No Panel Informationon 04-11 BUN/CREATININE RATIO SEE NOTE: Normal 6 - 22 [facility].; [employer] [facility], [place]. CHOL/HDLC RATIO 2.5 Normal [facility].; [facility], [facility]. GLOBULIN 2.6 Normal 1.9 - 3.7 [facility].; [employer] [facility], [place]. NON HDL CHOLESTEROL 100 Normal [facility].; [facility]. TSH W/REFLEX TO FT4 1.14 {mIU/L} Normal [facility].; [employer] [facility]. CNOVon 10-30-2024 CNOV Office Visit (UCUPNO ) -- CAROLINA MCCARTHY ([id number]) 1975 F Date Time Provider Department 10/30/24 11:30 [facility] your visit today, we recorded the following information about you: Temperature Pulse Respiration Blood pressure 99.1 degrees 82/minute 18/minute 114/75 Weight 69.9 kg Emma Rios LPN 10/30/2024 11:58 AM Signed Strep swab collected. MARCELLO Andrade Wendy, APRN.LAB SUPPORT TECHNICIAN 10/30/2024 11:55 AM Addendum Strep test today is positive. I will give Azithromycin (Zpack), take 2 pills today on day 1, then 1 pill on days 2-5. For the sorethroat, you may drink warm tea with honey, gargle with warm salt water, use throat lozenges/spray, tylenol/motrin. Dispose of toothbrush 24 hours after starting the antibiotic and again after 10 day treatment. Wash pillow cases Follow up with primary care provider. Trixie Morales APRN.BRITTANY 10/30/2024 11:58 AM Signed October 30, 2024 Subjective Chief Complaint: Sore Throat (Started last night. /OTC:Tylenol this morning. ), Headache, Fever (Chills), and Ear Problem (L) HPI: Carolina MCCARTHY is a 49 year old female who presents today for last night starting with sore throat, headache, fever with chills and left ear pain. Does have a history of strep throat but has had her tonsils removed. PAST MEDICAL HISTORY Diagnosis Date Cardiac dysrhythmia, unspecified Esophageal reflux PAST SURGICAL HISTORY Procedure Laterality Date ESOPHAGOGASTRODUODENOSCOPY TRANSORAL DIAGNOSTIC 01/26/2008 EGD HYSTERECTOMY HX KNEE SURGERY HX TONSILLECTOMY AND ADENOIDECTOMY AGE 13/> FAMILY HISTORY Problem Relation Age of Onset Asthma Brother Cancer Paternal Grandfather Heart Brother Heart Mother other (MULTIPLE SCLEROSIS [Other]) Maternal Grandfather Social History Tobacco Use Smoking status: Never Smokeless tobacco: Never Vaping Use Vaping status: Never Used Substance Use Topics Alcohol use: No Drug use: No ALLERGIES Allergen Reactions Penicillins Rash, Itching Sulfa (Sulfonamide * Rash There is no immunization history on file for this patient. Current Medications: aspirin, enteric coated (ASPIRIN, ENTERIC COATED) 81 mg EC tablet 1 tab(s) orally once a day for 30 day(s) famotidine (PEPCID) 20 mg tablet 1 tab(s) orally once a day (at bedtime) ibuprofen (MOTRIN) 800 mg tablet Vit B Comp and C-Vit E-FA-Jaylin-Zn 0.4 mg tab 1 tab(s) orally once a day for 30 day(s) FOLIC ACID 800 MCG TAB Take one(1) tablet daily. azithromycin (ZITHROMAX Z-ANTHONY) 250 mg tablet 2 tablets by mouth first day then 1 tablet the next 4 days Review of Systems Constitutional: Positive for chills and fever. HENT: Positive for sore throat. Negative for congestion (sinus drainage). Eyes: Negative. Respiratory: Negative. Cardiovascular: Negative. Gastrointestinal: Negative. Genitourinary: Negative. Musculoskeletal: Negative. Skin: Negative. Neurological: Positive for headaches. Objective BP 114/75 Pulse 82 Temp 99.1 Resp 18 Wt 154 lb 1.6 oz (69.9kg) SpO2 99% Physical Exam Vitals and nursing note reviewed. Constitutional: Appearance: Normal appearance. HENT: Head: Normocephalic and atraumatic. Right Ear: Tympanic membrane, ear canal and external ear normal. No middle ear effusion. There is no impacted cerumen. Tympanic membrane is not perforated or erythematous. Left Ear: Tympanic membrane, ear canal and external ear normal. No middle ear effusion. There is no impacted cerumen. Tympanic membrane is not perforated or erythematous. Nose: Nose normal. Mouth/Throat: Lips: [place]. No lesions. Mouth: Mucous membranes are moist. Pharynx: Oropharynx is clear. Uvula midline. Posterior oropharyngeal erythema present. Eyes: Extraocular Movements: Extraocular movements intact. Conjunctiva/sclera: Conjunctivae normal. Pupils: Pupils are equal, round, and reactive to light. Cardiovascular: Rate and Rhythm: Normal rate and regular rhythm. Pulses: Normal pulses. Heart sounds: Normal heart sounds. Pulmonary: Effort: Pulmonary effort is normal. Breath sounds: Normal breath sounds and air entry. Abdominal: General: Bowel sounds are normal. Palpations: Abdomen is soft. Musculoskeletal: General: Normal range of motion. Cervical back: Normal range of motion and neck supple. Skin: General: Skin is warm and dry. Neurological: General: No focal deficit present. Mental Status: She is alert and oriented to person, place, and time. Psychiatric: Mood and Affect: Mood normal. Medical Decision Making: Problems: Low: Acute, uncomplicated illness or injury Data: Unique source(s) for external note(s) reviewed: 1 Unique test result(s) reviewed: 1 Unique test(s) ordered: 1 Risk: Moderate: Drug management and Moderate risk from testing/treatment Medical Decision Making Level: 4 - Moderate ASSESSMENT/PLAN: (more content not included)... Normal [facility] CBC (INCLUDES DIFF/PLT)on Basophils (Bld) [#/Vol] 0.112 10*3/uL Normal 0-200 [facility] Comment on above: Performed By: #### 6 399, 98870 #### [facility] [place] [address] [employer] Supervisor: Vargas Artis MD Basophils/100 WBC (Bld) 1.8 % Normal [facility] Comment on above: Performed By: #### 6 399, 92049 #### [facility] of [address], [address] [place] [address] [employer] Dietary Service Supervisor: Vargas Artis MD Eosinophils (Bld) [#/Vol] 0.459 10*3/uL Normal 15-500 [facility] Comment on above: Performed By: #### 6 399, 82211 #### [facility] [place] [address] [employer] Dietary Service Supervisor: Vargas Artis MD Eosinophils/100 WBC (Bld) 7.4 % Normal [facility] Comment on above: Performed By: #### 6 399, 70706 #### [facility] [place] [address] [employer] Dietary Service Supervisor: Vargas Artis MD Erythrocyte distribution width (RBC) [Ratio] 11.8 % Normal 11.0-15.0 [facility] Comment on above: Performed By: #### 6 399, 99685 #### [facility] [place] [address] [employer] Service Supervisor: Vargas Artis MD Hematocrit (Bld) [Volume fraction] 37.5 % Normal 35.0-45.0 [facility] Comment on above: Performed By: #### 6 399, 34952 #### [facility] [place] [address] [employer] Service Supervisor: Vargas Artis MD Hemoglobin (Bld) [Mass/Vol] 12.3 g/dL Normal 11.7-15.5 [facility] Comment on above: Performed By: #### 6 399, 30463 #### [facility] of [address], [address] [place] [address] [employer]ary Service Supervisor: Vargas Artis MD Lymphocytes (Bld) [#/Vol] 2.492 10*3/uL Normal 850-3900 [facility] Comment on above: Performed By: #### 6 399, 82961 #### [facility] [place] [address] [employer] Service Supervisor: Vargas Artis MD Lymphocytes/100 WBC (Bld) 40.2 % Normal [facility] Comment on above: Performed By: #### 6 399, 19561 #### [facility] [place] [address] [employer] Service Supervisor: Vargas Artis MD MCH (RBC) [Entitic mass] 31.2 pg Normal 27.0-33.0 [facility] Comment on above: Performed By: #### 6 399, 85860 #### [facility] [place] [address] [employer] Service Supervisor: Vargas Artis MD MCHC (RBC) [Mass/Vol] 32.8 g/dL Normal 32.0-36.0 [facility] Comment on above: Result Comment: For adults, a slight decrease in the calculated MCHC value (in the range of 30 to 32 g/dL) is most likely not clinically significant; however, it should be interpreted with caution in correlation with other red cell parameters and the patient's clinical condition. Performed By: #### 6 399, 32100 #### [facility] [place] [address] [employer] Supervisor: Vargas Artis MD MCV (RBC) [Entitic vol] 95.2 fL Normal 80.0-100.0 [facility] Comment on above: Performed By: #### 6 399, 75541 #### [facility] [place] [address] [employer] Service Supervisor: Vargas Artis MD Monocytes (Bld) [#/Vol] 0.372 10*3/uL Normal 200-950 [facility] Comment on above: Performed By: #### 6 399, 73869 #### [facility] [place] [address] [employer] Service Supervisor: Vargas Artis MD Monocytes/100 WBC (Bld) 6.0 % Normal [facility] Comment on above: Performed By: #### 6 399, 51813 #### [facility] [place] [address] [employer] Service Supervisor: Vargas Artis MD Neutrophils (Bld) [#/Vol] 2.765 10*3/uL Normal 5156-6052 [facility] Comment on above: Performed By: #### 6 399, 15724 #### [facility] [place] [address] [employer] Service Supervisor: Vargas Artis MD Neutrophils/100 WBC (Bld) 44.6 % Normal [facility] Comment on above: Performed By: #### 6 399, 80882 #### [facility] [place] [address] [employer] Supervisor: Vargas Artis MD Platelet mean volume (Bld) [Entitic vol] 10.8 fL Normal 7.5-12.5 [facility] Comment on above: Performed By: #### 6 399, 60595 #### [facility] [place] [address] [employer] Supervisor: Vargas Artis MD Platelets (Bld) [#/Vol] 236 10*3/uL Normal 140-400 [facility] Comment on above: Performed By: #### 6 399, 86318 #### [facility] [place] [address] [employer] Service Supervisor: Vargas Artis MD RBC (Bld) [#/Vol] 3.94 10*6/uL Normal 3.80-5.10 [facility] Comment on above: Performed By: #### 6 399, 51484 #### [facility] [place] [address] [employer] Service Supervisor: Vargas Artis MD WBC (Bld) [#/Vol] 6.2 10*3/uL Normal 3.8-10.8 [facility] Comment on above: Performed By: #### 6 399, 37597 #### [facility] [place] [address] [employer] Service Supervisor: Vargas Artis MD [facility] 10-09-2024 Albumin [Mass/Vol] 4.1 g/dL Normal 3.6-5.1 [facility] Comment on above: Performed By: #### 6 399, 56849 #### [facility] [place] [address] [employer] Service Supervisor: Vargas Artis MD Albumin/Globulin [Mass ratio] 1.6 {ratio} Normal 1.0-2.5 [facility] Comment on above: Performed By: #### 6 399, 20627 #### [facility] [place] [address] [employer] Service Supervisor: Vargas Artis MD ALP [Catalytic activity/Vol] 64 U/L Normal 31-125 [facility] Comment on above: Performed By: #### 6 399, 12388 #### [facility] [place] [address] [employer] Service Supervisor: Vargas Artis MD ALT [Catalytic activity/Vol] 14 U/L Normal 6-29 [facility] Comment on above: Performed By: #### 6 399, 86095 #### [facility] [place] [address] [employer] Service Supervisor: Vargas Artis MD AST [Catalytic activity/Vol] 15 U/L Normal 10-35 [facility] Comment on above: Performed By: #### 6 399, 50990 #### [facility] [place] [address] [employer] Service Supervisor: Vargas Artis MD Bilirubin [Mass/Vol] 1.2 mg/dL Normal 0.2-1.2 [facility] Comment on above: Performed By: #### 6 399, 17147 #### [facility] of [address] [place] [address] [employer] Supervisor: Vargas Artis MD BUN/CREATININE RATIO SEE NOTE: Normal 6-22 [facility] Comment on above: Result Comment: Not Reported: BUN and Creatinine are within reference range. Performed By: #### 6 399, 41232 #### [facility] of [address], [address] [place] [address] [employer] Service Supervisor: Vargas Artis MD Calcium [Mass/Vol] 9.1 mg/dL Normal 8.6-10.2 [facility] Comment on above: Performed By: #### 6 399, 53163 #### [facility] of [address], [address] [place] [address] [employer] Supervisor: Vargas Artis MD Chloride [Moles/Vol] 106 mmol/L Normal 98-110 [facility] Comment on above: Performed By: #### 6 399, 97995 #### [facility] of [address], [address] [place] [address] [employer] Supervisor: Vargas Artis MD CO2 [Moles/Vol] 30 mmol/L Normal 20-32 [facility] Comment on above: Performed By: #### 6 399, 78217 #### [facility] [place] [address] [employer] Service Supervisor: Vargas Artis MD Creatinine [Mass/Vol] 0.99 mg/dL Normal 0.50-0.99 [facility] Comment on above: Performed By: #### 6 399, 06981 #### [facility] [place] [address] [employer] Supervisor: Vargas Artis MD GFR/1.73 sq M.predicted among non-blacks MDRD (S/P/Bld) [Vol rate/Area] 70 mL/min/{1.73_m2} Normal > OR = 60 [facility] Comment on above: Performed By: #### 6 399, 47277 #### [facility] of [address], [address] [place] [address] [employer] Supervisor: Vargas Artis MD Globulin (S) [Mass/Vol] 2.5 g/dL Normal 1.9-3.7 [facility] Comment on above: Performed By: #### 6 399, 91802 #### [facility] [place] [address] [employer] Supervisor: Vargas Artis MD Glucose [Mass/Vol] 91 mg/dL Normal 65-99 [facility] Comment on above: Result Comment: Fasting reference interval Performed By: #### 6 399, 11288 #### [facility] [place] [address] [employer] Supervisor: Vargas Artis MD Potassium [Moles/Vol] 4.3 mmol/L Normal 3.5-5.3 [facility] Comment on above: Performed By: #### 6 399, 51214 #### [facility] [place] [address] [employer] Supervisor: Vargas Artis MD Protein [Mass/Vol] 6.6 g/dL Normal 6.1-8.1 [facility] Comment on above: Performed By: #### 6 399, 46696 #### [facility] [place] [address] [employer] Supervisor: Vargas Artis MD Sodium [Moles/Vol] 140 mmol/L Normal 135-146 [facility] Comment on above: Performed By: #### 6 399, 71707 #### [facility] [place] [address] [employer] Supervisor: Vargas Artis MD Urea nitrogen [Mass/Vol] 21 mg/dL Normal 7-25 [facility] Comment on above: Performed By: #### 6 399, 68205 #### [facility] [place] [address] [employer] Supervisor: Vargas Artis MD CHEST 2 VIEWSon 10-08-2024 CHEST 2 VIEWS [place] [id number] Patient: CAROLINA MCCARTHY Phone#: : 1975 Age: 49 Gender: F Pt. Type: Out Account: [id number] Location: Ordering: MONICA OSBORN Exam Date: 10/08/2024/16:02 Family Phys: Charge Code: [id number] Physician: Leake Order #: [id number] Dose#: PROCEDURE: X-RAY CHEST 2 VIEWS COMPARISON: [facility], XR, CHEST 2 VIEWS, 08/09/2022, 16:00. INDICATIONS: Pre-operation. FINDINGS: LUNGS: Normal. No significant pulmonary parenchymal abnormalities. VASCULATURE: Normal. Unremarkable pulmonary vasculature. CARDIAC: Normal. No cardiac silhouette abnormality or cardiomegaly. MEDIASTINUM: Normal. No visible mass or adenopathy. PLEURA: Normal. No effusion or pleural thickening. BONES: There is minimal curvature of the thoracic spine to the right. OTHER: Pectus excavatum is present. CONCLUSION: No acute disease. No significant change has occurred. Dictated by: Shantel Paige MD on 10/08/2024 at 16:22 Approved by: Shantel Paige MD on 10/08/2024 at 16:24 Normal [facility] Laboratory - Chemistry and C hemistry - challengeon 10-08-2024 Albumin [Mass/Vol] 4.1 g/dL Normal 3.6 - 5.1 g/dL [facility], [facility].; [employer], [place]. Albumin/Globulin [Mass ratio] 1.6 {ratio} Normal 1.0 - 2.5 [facility], [facility].; [employer]. ALP [Catalytic activity/Vol] 64 U/L Normal 31 - 125 U/L [employer], [facility].; [employer], [place]. ALT [Catalytic activity/Vol] 14 U/L Normal 6 - 29 U/L [employer] [facility], [facility].; [employer], [place]. AST [Catalytic activity/Vol] 15 U/L Normal 10 - 35 U/L [employer] [facility], [facility].; [employer], [place]. Bilirubin [Mass/Vol] 1.2 mg/dL Normal 0.2 - 1 .2 mg/dL [facility].; [facility], [facility]. Calcium [Mass/Vol] 9.1 mg/dL Normal 8.6 - 10. 2 mg/dL [facility].; [employer] [facility], [facility]. Chloride [Moles/Vol] 106 mmol/L Normal 98 - 11 0 mmol/L [facility].; [employer], [place]. CO2 [Moles/Vol] 30 mmol/L Normal 20 - 32 mmol/L [facility].; [employer], [facility]. Creatinine [Mass/Vol] 0.99 mg/dL Normal 0.50 - 0.99 mg/dL [facility].; [employer] [facility], [facility]. GFR/1.73 sq M.predicted among non-blacks MDRD (S/P/Bld) [Vol rate/Area] 70 mL/min/{1.73_m2} [facility].; [employer], [place]. Glucose [Mass/Vol] 91 mg/dL Normal 65 - 99 mg/dL [facility].; [employer], [place]. Potassium [Moles/Vol] 4.3 mmol/L Normal 3.5 - 5.3 mmol/L [facility].; [employer], [place]. Protein [Mass/Vol] 6.6 g/dL Normal 6.1 - 8.1 g/dL [facility], [facility].; [employer], [facility]. Sodium [Moles/Vol] 140 mmol/L Normal 135 - 146 mmol/L [facility].; [employer], [place]. Urea nitrogen [Mass/Vol] 21 mg/dL Normal 7 - 25 mg/dL [facility] [employer] [facility].; [employer] Laboratory - Hematology and Cell countson 10-08-2024 Basophils (Bld) [#/Vol] 0.112 10*3/uL Normal 0 - 200 {cells/uL} [facility].; [employer] Basophils/100 WBC (Bld) 1.8 % Normal [facility].; [employer], [place]. Eosinophils (Bld) [#/Vol] 0.459 10*3/uL Normal 15 - 500 {cells/uL} [facility].; [facility]. Eosinophils/100 WBC (Bld) 7.4 % Normal [facility], [facility] Erythrocyte distribution width (RBC) [Ratio] 11.8 % Normal 11.0 - 15.0 % [facility], [facility].; [facility], [facility] Hematocrit (Bld) [Volume fraction] 37.5 % Normal 35.0 - 45.0 % [facility].; [facility], [facility]. Hemoglobin (Bld) [Mass/Vol] 12.3 g/dL Normal 11.7 - 15.5 g/dL [facility], [facility].; [facility], [facility]. Lymphocytes (Bld) [#/Vol] 2.492 10*3/uL Normal 850 - 3900 {cells/uL} [facility], [facility].; [facility], [facility] Lymphocytes/100 WBC (Bld) 40.2 % Normal [facility].; [facility], [facility]. MCH (RBC) [Entitic mass] 31.2 pg Normal 27.0 - 33.0 pg [facility].; [facility], [facility]. MCHC (RBC) [Mass/Vol] 32.8 g/dL Normal 32.0 - 36.0 g/dL [facility].; [facility], [facility]. MCV (RBC) [Entitic vol] 95.2 fL Normal 80.0 - 100.0 fL [facility].; [facility], [facility]. Monocytes (Bld) [#/Vol] 0.372 10*3/uL Normal 200 - 950 {cells/uL} [facility].; [facility], [facility]. Monocytes/100 WBC (Bld) 6.0 % Normal [facility].; [facility], [facility]. Neutrophils (Bld) [#/Vol] 2.765 10*3/uL Normal 1500 - 7800 {cells/uL} [facility], [facility].; [facility], [facility]. Neutrophils/100 WBC (Bld) 44.6 % Normal [facility].; [facility], [facility]. Platelet mean volume (Bld) [Entitic vol] 10.8 fL Normal 7.5 - 12.5 fL [facility] Er[facility].; [employer]. Platelets (Bld) [#/Vol] 236 10*3/uL Normal 140 - 400 [employer] [facility].; [employer]. RBC (Bld) [#/Vol] 3.94 10*6/uL Normal 3.80 - 5.1 0 {Million/uL } [employer].; [employer]. WBC (Bld) [#/Vol] 6.2 10*3/uL Normal 3.8 - 10.8 [employer].; [employer] No Panel Informationon 10-08 BUN/CREATININE RATIO SEE NOTE: Normal [facility] [employer] [facility].; [employer]. GLOBULIN 2.5 Normal 1.9 - 3.7 [employer].; [employer]. COMPREHENSIVE METABOLIC PANE [facility] 08-17-2024 Albumin [Mass/Vol] 4.2 g/dL Normal 3.6-5.1 [facility] Comment on above: Performed By: #### 1 0231 #### [facility] [place] [address] [employer] Supervisor: Vargas Artis MD Albumin/Globulin [Mass ratio] 1.6 {ratio} Normal 1.0-2.5 [facility] Comment on above: Performed By: #### 1 0231 #### [facility] [place] [address] [employer] Supervisor: Vargas Artis MD ALP [Catalytic activity/Vol] 66 U/L Normal 31-125 [facility] Comment on above: Performed By: #### 1 0231 #### [facility] [place] [address] [employer] Supervisor: Vargas Artis MD ALT [Catalytic activity/Vol] 12 U/L Normal 04-17 [facility] Comment on above: Performed By: #### 1 0231 #### [facility] [place] [address] [employer] Supervisor: Vargas Artis MD AST [Catalytic activity/Vol] 14 U/L Normal 10-35 [facility] Comment on above: Performed By: #### 1 0231 #### [facility] of [place] [address] [employer] Supervisor: Vargas Artis MD Bilirubin [Mass/Vol] 1.0 mg/dL Normal 0.2-1.2 [facility] Comment on above: Performed By: #### 1 0231 #### [facility] of [place] [address] [employer] Supervisor: Vargas Artis MD BUN/CREATININE RATIO SEE NOTE: Normal 6-22 [facility] Comment on above: Result Comment: Not Reported: BUN and Creatinine are within reference range. Performed By: #### 1 0231 #### [facility] of [place] [address] [employer] Supervisor: Vargas Artis MD Calcium [Mass/Vol] 9.7 mg/dL Normal 8.6-10.2 [facility] Comment on above: Performed By: #### 1 0231 #### [facility] of [place] [address] [employer] Supervisor: Vargas Artis MD Chloride [Moles/Vol] 105 mmol/L Normal 98-110 [facility] Comment on above: Performed By: #### 1 0231 #### [facility] of [place] [address] [employer] Supervisor: Vargas Artis MD CO2 [Moles/Vol] 29 mmol/L Normal 20-32 [facility] Comment on above: Performed By: #### 1 0231 #### [facility] of [place] [address] [employer] Supervisor: Vargas Artis MD Creatinine [Mass/Vol] 0.99 mg/dL Normal 0.50-0.99 [facility] Comment on above: Performed By: #### 1 0231 #### [facility] of [address] [place] [address] [employer] Supervisor: Vargas Artis MD GFR/1.73 sq M.predicted among non-blacks MDRD (S/P/Bld) [Vol rate/Area] 70 mL/min/{1.73_m2} Normal > OR = 60 [facility] Comment on above: Performed By: #### 1 0231 #### [facility] [place] [address] [employer] Supervisor: Vargas Artis MD Globulin (S) [Mass/Vol] 2.6 g/dL Normal 1.9-3.7 [facility] Comment on above: Performed By: #### 1 0231 #### [facility] [place] [address] [employer] Supervisor: Vragas Artis MD Glucose [Mass/Vol] 91 mg/dL Normal 65-99 [facility] Comment on above: Result Comment: Fasting reference interval Performed By: #### 1 0231 #### [facility] [place] [address] [employer] Supervisor: Vargas Artis MD Potassium [Moles/Vol] 3.9 mmol/L Normal 3.5-5.3 [facility] Comment on above: Performed By: #### 1 0231 #### [facility] [place] [address] [employer] Supervisor: Vargas Artis MD Protein [Mass/Vol] 6.8 g/dL Normal 6.1-8.1 [facility] Comment on above: Performed By: #### 1 0231 #### [facility] of [place] [address] [employer] Supervisor: Vargas Artis MD Sodium [Moles/Vol] 141 mmol/L Normal 135-146 [facility] Comment on above: Performed By: #### 1 0231 #### [facility] [place] [address] [employer] Supervisor: Vargas Artis MD Urea nitrogen [Mass/Vol] 20 mg/dL Normal 7-25 [facility] Comment on above: Performed By: #### 1 0231 #### [facility] [address], [address] [place] [address] [employer] Supervisor: Vargas Artis MD Laboratory - Chemistry and C hemistry - challengeon 08-16-2024 Albumin [Mass/Vol] 4.2 g/dL Normal 3.6 - 5.1 g/dL [employer] [facility], Inc.; [employer], [employer] Albumin/Globulin [Mass ratio] 1.6 {ratio} Normal 1.0 - 2.5 [employer], [employer] ALP [Catalytic activity/Vol] 66 U/L Normal 31 - 125 U/L [employer], [employer] ALT [Catalytic activity/Vol] 12 U/L Normal 6 - 29 U/L [employer], [employer] AST [Catalytic activity/Vol] 14 U/L Normal 10 - 35 U/L [employer], [employer].; [employer] Bilirubin [Mass/Vol] 1.0 mg/dL Normal 0.2 - 1 .2 mg/dL [employer] Calcium [Mass/Vol] 9.7 mg/dL Normal 8.6 - 10. 2 mg/dL [employer], [employer] Chloride [Moles/Vol] 105 mmol/L Normal 98 - 11 0 mmol/L [employer], [employer] CO2 [Moles/Vol] 29 mmol/L Normal 20 - 32 mmol/L [employer], [place].; [employer], [employer] Creatinine [Mass/Vol] 0.99 mg/dL Normal 0.50 - 0.99 mg/dL [employer], [place].; [employer], [employer] GFR/1.73 sq M.predicted among non-blacks MDRD (S/P/Bld) [Vol rate/Area] 70 mL/min/{1.73_m2} Normal [facility] [employer], [employer] Glucose [Mass/Vol] 91 mg/dL Normal 65 - 99 mg/dL [facility].; [employer] [facility] Potassium [Moles/Vol] 3.9 mmol/L Normal 3.5 - 5.3 mmol/L [facility].; [facility], [facility] Protein [Mass/Vol] 6.8 g/dL Normal 6.1 - 8.1 g/dL [facility].; [employer] [facility] Sodium [Moles/Vol] 141 mmol/L Normal 135 - 146 mmol/L [facility].; [employer] Urea nitrogen [Mass/Vol] 20 mg/dL Normal 7 - 25 mg/dL [facility].; [employer] [facility] No Panel Informationon 08-16 BUN/CREATININE RATIO SEE NOTE: Normal 6 - 22 [facility].; [employer] [facility] GLOBULIN 2.6 Normal 1.9 - 3.7 [facility]; [employer] Laboratory - Chemistry and C hemistry - challengeon 05-14-2024 Bilirubin [Mass/Vol] Negative Normal [facility].; [employer], [place]. Bilirubin Ql (U) Negative Normal [facility].; [employer] [facility] Hospital[facility]. Glucose [Mass/Vol] NORM Normal [facility].; [employer], [place]. Ketones Ql (U) Negative Normal [facility].; [employer], [place]. pH (Bld) 5 [pH] Normal [facility].; [employer]. pH (U) 5.5 [pH] Normal [facility].; [employer]. Protein [Mass/Vol] Negative Normal [facility].; [employer]. Specific gravity (U) [Rel density] 1.015 Normal [facility].; [employer], [place]. Urobilinogen Qn (U) 0.2 mg/dL Normal [facility].; [employer]. Laboratory - Hematology and Cell countson 05-14-2024 Hemoglobin Ql (U) small Abnormal [facility] [employer].; [employer]. WBC (Bld) [#/Vol] Negative Normal [employer].; [employer]. Laboratory - Microbiology an d Antimicrobial susceptibilityon 05-14-2024 Bacteria identified Cx Nom (U) See Results Below Normal [employer] [facility] [facility]; [employer]. Bacteria identified Cx Nom (Unsp spec) NONE Normal [employer].; [employer]. Laboratory - Specimen inform ationon 05-14-2024 Appearance (U) clear Normal [employer]; [employer]. Clarity (U) clear Normal [employer]. Color (U) yellow Normal [employer]; [employer]. Color (U) p.yel Normal [employer].; [employer]. Specimen type Nom (Spec) R Normal [employer]. Laboratory - Urinalysison Crystals LM Nom (Urine sed) NONE Normal [employer]?; [employer]. Glucose Test strip (U) [Mass/Vol] Negative Normal [employer]; [employer]. Leukocyte esterase Test strip Ql (U) Negative Normal [employer]. Nitrite Ql (U) Negative Normal [facility] [employer]. Protein Ql (U) Negative Normal [facility] [employer].; [employer]. Urinalysis dipstick W Reflex Microscopic panel (U) URINALYSIS WITH MICROSCOPY Normal [facility] [employer].; [employer]. Yeast LM Ql (Urine sed) NONE Normal [employer]. No Panel Informationon 05-14 Amorphous 1+ Normal [employer]. Blood 50 Abnormal [employer].; [employer]. Casts NONE Normal [employer]. Epi Cells OCC Normal [employer].; [facility] Ketone Negative Normal [employer].; [employer] Mucous NONE Normal [employer].; [employer]. Rbc 0-5 Normal 0 - 3 [employer].; [employer] SEND TO IC? NO Normal [employer].; [employer] Sp [place] 1.020 Normal [employer].; [employer]. Urobilinog NORM Normal [employer].; [employer] Wbc NONE Normal 0 - 5 [employer].; [employer], [employer] CBC (INCLUDES DIFF/PLT)on Basophils (Bld) [#/Vol] 0.128 10*3/uL Normal 0-200 [facility] Comment on above: Performed By: #### 7 600, 6399, 11824 #### [facility] [place] [address] [employer] Supervisor: Vargas Artis MD Basophils/100 WBC (Bld) 2.2 % Normal [facility] Comment on above: Performed By: #### 7 600, 6399, 54439 #### [facility] [place] [address] [employer] Supervisor: Vargas Artis MD Eosinophils (Bld) [#/Vol] 0.534 10*3/uL High 15-500 [facility] Comment on above: Performed By: #### 7 600, 6399, 77421 #### [facility] [place] [address] [employer] Supervisor: Vargas Artis MD Eosinophils/100 WBC (Bld) 9.2 % Normal [facility] Comment on above: Performed By: #### 7 600, 6399, 37919 #### [facility] [place] [address] [employer] Supervisor: Vargas Artis MD Erythrocyte distribution width (RBC) [Ratio] 12.2 % Normal 11.0-15.0 [facility] Comment on above: Performed By: #### 7 600, 6399, 98034 #### [facility] of [place] [address] [employer] Supervisor: Vargas Artis MD Hematocrit (Bld) [Volume fraction] 38.9 % Normal 35.0-45.0 [facility] Comment on above: Performed By: #### 7 600, 6399, 02328 #### [facility] of [place] [address] [employer] Supervisor: Vargas Artis MD Hemoglobin (Bld) [Mass/Vol] 12.9 g/dL Normal 11.7-15.5 [facility] Comment on above: Performed By: #### 7 600, 6399, 86960 #### [facility] of [place] [address] [employer] Supervisor: Vargas Artis MD Lymphocytes (Bld) [#/Vol] 1.955 10*3/uL Normal 850-3900 [facility] Comment on above: Performed By: #### 7 600, 6399, 97184 #### [facility] of [place] [address] [employer] Supervisor: Vargas Artis MD Lymphocytes/100 WBC (Bld) 33.7 % Normal [facility] Comment on above: Performed By: #### 7 600, 6399, 21663 #### [facility] of [place] [address] [employer] Supervisor: Vargas Artis MD MCH (RBC) [Entitic mass] 31.2 pg Normal 27.0-33.0 [facility] Comment on above: Performed By: #### 7 600, 6399, 55836 #### [facility] of [place] [address] [employer] Supervisor: Vargas Artis MD MCHC (RBC) [Mass/Vol] 33.2 g/dL Normal 32.0-36.0 [facility] Comment on above: Performed By: #### 7 600, 6399, 27542 #### [facility] of [place] [address] [employer] Supervisor: Vargas Artis MD MCV (RBC) [Entitic vol] 94.0 fL Normal 80.0-100.0 [facility] Comment on above: Performed By: #### 7 600, 6399, 15719 #### [facility] of [place] [address] [employer] Supervisor: Vargas Artis MD Monocytes (Bld) [#/Vol] 0.36 10*3/uL Normal 200-950 [facility] Comment on above: Performed By: #### 7 600, 6399, 18469 #### [facility] [place] [address] [employer] Supervisor: Vargas Artis MD Monocytes/100 WBC (Bld) 6.2 % Normal [facility] Comment on above: Performed By: #### 7 600, 6399, 66740 #### [facility] [place] [address] [employer] Supervisor: Vargas Artis MD Neutrophils (Bld) [#/Vol] 2.825 10*3/uL Normal 8505-9879 [facility] Comment on above: Performed By: #### 7 600, 6399, 54150 #### [facility] of [place] [address] [employer] Supervisor: Vargas Artis MD Neutrophils/100 WBC (Bld) 48.7 % Normal [facility] Comment on above: Performed By: #### 7 600, 6399, 59592 #### [facility] of [place] [address] [employer] Supervisor: Vargas Artis MD Platelet mean volume (Bld) [Entitic vol] 10.8 fL Normal 7.5-12.5 [facility] Comment on above: Performed By: #### 7 600, 6399, 58454 #### [facility] [place] [address] [employer] Supervisor: Vargas Artis MD Platelets (Bld) [#/Vol] 250 10*3/uL Normal 140-400 [facility] Comment on above: Performed By: #### 7 600, 6399, 70942 #### [facility] of [address], [address] [place] [address] [employer] Supervisor: Vargas Artis MD RBC (Bld) [#/Vol] 4.14 10*6/uL Normal 3.80-5.10 [facility] Comment on above: Performed By: #### 7 600, 6399, 63449 #### [facility] of [address], [address] [place] [address] [employer] Supervisor: Vargas Artis MD WBC (Bld) [#/Vol] 5.8 10*3/uL Normal 3.8-10.8 [facility] Comment on above: Performed By: #### 7 600, 6399, 66811 #### [facility] of [address], [address] [place] [address] [employer] Supervisor: Vargas Artis MD COMPREHENSIVE METABOLIC PANE [facility] 04-28-2024 Albumin [Mass/Vol] 4.3 g/dL Normal 3.6-5.1 [facility] Comment on above: Performed By: #### 7 600, 6399, 17613 #### [facility] of [place] [address] [employer] Supervisor: Vargas Artis MD Albumin/Globulin [Mass ratio] 1.7 {ratio} Normal 1.0-2.5 [facility] Comment on above: Performed By: #### 7 600, 6399, 53753 #### [facility] of [address], [address] [place] [address] [employer] Supervisor: Vargas Artis MD ALP [Catalytic activity/Vol] 64 U/L Normal 31-125 [facility] Comment on above: Performed By: #### 7 600, 6399, 77444 #### [facility] of [address], [address] [place] [address] [employer] Supervisor: Vargas Artis MD ALT [Catalytic activity/Vol] 13 U/L Normal 6-29 [facility] Comment on above: Performed By: #### 7 600, 6399, 68962 #### [facility] of [place] [address] [employer] Supervisor: Vargas Artis MD AST [Catalytic activity/Vol] 14 U/L Normal 10-35 [facility] Comment on above: Performed By: #### 7 600, 6399, 59649 #### [facility] of [place] [address] [employer] Supervisor: Vargas Artis MD Bilirubin [Mass/Vol] 1.5 mg/dL High 0.2-1.2 [facility] Comment on above: Performed By: #### 7 600, 6399, 76146 #### [facility] [place] [address] [employer] Supervisor: Vargas Artis MD Calcium [Mass/Vol] 9.5 mg/dL Normal 8.6-10.2 [facility] Comment on above: Performed By: #### 7 600, 6399, 80923 #### [facility] [place] [address] [employer] Supervisor: Vargas Artis MD Chloride [Moles/Vol] 107 mmol/L Normal 98-110 [facility] Comment on above: Performed By: #### 7 600, 6399, 21230 #### [facility] of [place] [address] [employer] Supervisor: Vargas Artis MD CO2 [Moles/Vol] 27 mmol/L Normal 20-32 [facility] Comment on above: Performed By: #### 7 600, 6399, 99754 #### [facility] [place] [address] [employer] Supervisor: Vargas Artis MD Creatinine [Mass/Vol] 1.00 mg/dL High 0.50-0.99 [facility] Comment on above: Performed By: #### 7 600, 6399, 32067 #### [facility] of [place] [address] [employer] Supervisor: Vargas Artis MD GFR/1.73 sq M.predicted among non-blacks MDRD (S/P/Bld) [Vol rate/Area] 69 mL/min/{1.73_m2} Normal > OR = 60 [facility] Comment on above: Performed By: #### 7 600, 6399, [id number] #### [facility] [place] [address] [employer] Supervisor: Vargas Artis MD Globulin (S) [Mass/Vol] 2.5 g/dL Normal 1.9-3.7 [facility] Comment on above: Performed By: #### 7 600, 6399, [id number] #### [facility] [place] [address] [employer] Supervisor: Vargas Artis MD Glucose [Mass/Vol] 83 mg/dL Normal 65-99 [facility] Comment on above: Result Comment: Fasting reference interval Performed By: #### 7 600, 6399, [id number] #### [facility] [place] [address] [employer] Supervisor: Vargas Artis MD Potassium [Moles/Vol] 4.2 mmol/L Normal 3.5-5.3 [facility] Comment on above: Performed By: #### 7 600, 6399, [id number] #### [facility] [place] [address] [employer] Supervisor: Vargas Artis MD Protein [Mass/Vol] 6.8 g/dL Normal 6.1-8.1 [facility] Comment on above: Performed By: #### 7 600, 6399, 51779 #### [facility] [place] [address] [employer] Supervisor: Vargas Artis MD Sodium [Moles/Vol] 142 mmol/L Normal 135-146 [facility] Comment on above: Performed By: #### 7 600, 6399, 48898 #### [facility] of [address], [address] [place] [address] [employer] Supervisor: Vargas Artis MD Urea nitrogen [Mass/Vol] 19 mg/dL Normal 7-25 [facility] Comment on above: Performed By: #### 7 600, 6399, 90633 #### [facility] of [address], [address] [place] [address] [employer] Supervisor: Vargas Artis MD Urea nitrogen/Creatinine [Mass ratio] 19 mg/mg Normal 6-22 [facility] Comment on above: Performed By: #### 7 600, 6399, [id number] #### [facility] of [address], [address] [place] [address] [employer] Supervisor: Vargas Artis MD LIPID PANEL, [facility] 07- Cholesterol [Mass/Vol] 155 mg/dL Normal <200 [facility] Comment on above: Performed By: #### 7 600, 6399, 68563 #### [facility] of [address], [address] [place] [address] [employer] Supervisor: Vargas Artis MD Cholesterol in HDL [Mass/Vol] 70 mg/dL Normal > OR = 50 [facility] Comment on above: Performed By: #### 7 600, 6399, 15888 #### [facility] [place] [address] [employer] Supervisor: Vargas Artis MD Cholesterol in LDL [Mass/Vol] 74 mg/dL Normal [facility] Comment on above: Result Comment: Refe rence range: <100 Desirable range <100 mg/dL for primary prevention; <70 mg/dL for patients with CHD or diabetic patients with > or = 2 CHD risk factors. LDL-C is now calculated using the Jeannie calculation, which is a validated novel method providing better accuracy than the Friedewald equation in the estimation of LDL-C. Silvestre ROBISON et al. AMBROCIO. 2013;310(19): 8516-2595 (http://education.Blo[employer]/faq/YGR741) Performed By: #### 7 600, 6399, 54809 #### [facility] of [address], [address] [place] [address] [employer] Supervisor: Vargas Artis MD Cholesterol.total/Ch olesterol in HDL [Mass ratio] 2.2 {ratio} Normal <5.0 [facility] Comment on above: Performed By: #### 7 600, 6399, 73046 #### [facility] [place] [address] [employer] Supervisor: Vargas Artis MD NON HDL CHOLESTEROL 85 mg/dL (calc) Normal <130 [facility] Comment on above: Result Comment: For patients with diabetes plus 1 major ASCVD risk factor, treating to a non-HDL-C goal of <100 mg/dL (LDL-C of <70 mg/dL) is considered a therapeutic option. Performed By: #### 7 600, 6399, 18806 #### [facility] [place] [address] [employer] Supervisor: Vargas Artis MD Triglyceride [Mass/Vol] 37 mg/dL Normal <150 [facility] Comment on above: Performed By: #### 7 600, 6399, 10691 #### [facility] [place] [address] [employer] Supervisor: Vargas Artis MD TSHon 04-28-2024 TSH Qn 1.07 m[IU]/L Normal [facility] Comment on above: Result Comment: Refe rence Range > or = 20 Years 0.40-4.50 Ranges First trimester 0.26-2.66 Second trimester 0.55-2.73 Third trimester 0.43-2.91 Performed By: #### 7 600, 6399, 13751 #### [facility] [place] [address] [employer] Supervisor: Vargas Artis MD Laboratory - Chemistry and C hemistry - challengeon 04-27-2024 Albumin [Mass/Vol] 4.3 g/dL Normal 3.6 - 5.1 g/dL [facility] Albumin/Globulin [Mass ratio] 1.7 {ratio} Normal 1.0 - 2.5 [facility].; [facility], [facility]. ALP [Catalytic activity/Vol] 64 U/L Normal 31 - 125 U/L [facility].; [facility], [facility]. ALT [Catalytic activity/Vol] 13 U/L Normal 6 - 29 U/L [facility].; [facility], [facility]. AST [Catalytic activity/Vol] 14 U/L Normal 10 - 35 U/L [facility].; [employer] [facility]. Bilirubin [Mass/Vol] 1.5 mg/dL Abnormal 0.2 - 1 .2 mg/dL [facility].; [facility], [facility]. Calcium [Mass/Vol] 9.5 mg/dL Normal 8.6 - 10. 2 mg/dL [facility].; [employer] [facility], [facility]. Chloride [Moles/Vol] 107 mmol/L Normal 98 - 11 0 mmol/L [facility].; [employer] [place]. Cholesterol [Mass/Vol] 155 mg/dL Normal [facility].; [employer], [facility]. Cholesterol in HDL [Mass/Vol] 70 mg/dL Normal [facility].; [facility], [place]. Cholesterol in LDL [Mass/Vol] 74 mg/dL Normal [facility].; [employer] [place]. CO2 [Moles/Vol] 27 mmol/L Normal 20 - 32 mmol/L [facility].; [employer], [facility]. Creatinine [Mass/Vol] 1.00 mg/dL Abnormal 0.50 - 0.99 mg/dL [facility].; [employer], [facility]. GFR/1.73 sq M.predicted among non-blacks MDRD (S/P/Bld) [Vol rate/Area] 69 mL/min/{1.73_m2} Normal [facility], [facility].; [employer] [employer] Glucose [Mass/Vol] 83 mg/dL Normal 65 - 99 mg/dL [facility], [facility].; [employer], [place]. Potassium [Moles/Vol] 4.2 mmol/L Normal 3.5 - 5.3 mmol/L [facility].; [facility]. Protein [Mass/Vol] 6.8 g/dL Normal 6.1 - 8.1 g/dL [facility].; [facility], [facility]. Sodium [Moles/Vol] 142 mmol/L Normal 135 - 146 mmol/L [facility], [facility].; [facility], [facility] Triglyceride [Mass/Vol] 37 mg/dL Normal [facility].; [facility]. TSH Qn 1.07 m[IU]/L Normal [facility].; [facility], [facility] Urea nitrogen [Mass/Vol] 19 mg/dL Normal 7 - 25 mg/dL [facility].; [facility], [facility] Urea nitrogen/Creatinine [Mass ratio] 19 mg/mg Normal 6 - 22 [facility]; [facility], [facility] Laboratory - Hematology and Cell countson 04-27-2024 Basophils (Bld) [#/Vol] 0.128 10*3/uL Normal 0 - 200 {cells/uL} [facility].; [facility] Basophils/100 WBC (Bld) 2.2 % Normal [facility].; [facility], [facility]. Eosinophils (Bld) [#/Vol] 0.534 10*3/uL Abnormal 15 - 500 {cells/uL} [facility], [facility].; [facility], [facility]. Eosinophils/100 WBC (Bld) 9.2 % Normal [facility].; [facility]. Erythrocyte distribution width (RBC) [Ratio] 12.2 % Normal 11.0 - 15.0 % [facility].; [employer] [facility], [facility]. Hematocrit (Bld) [Volume fraction] 38.9 % Normal 35.0 - 45.0 % [facility].; [facility], [facility]. Hemoglobin (Bld) [Mass/Vol] 12.9 g/dL Normal 11.7 - 15.5 g/dL [facility], [facility].; [facility], [facility] Lymphocytes (Bld) [#/Vol] 1.955 10*3/uL Normal 850 - 3900 {cells/uL} [facility].; [employer] [facility] Lymphocytes/100 WBC (Bld) 33.7 % Normal [facility].; [employer] [facility], [facility]. MCH (RBC) [Entitic mass] 31.2 pg Normal 27.0 - 33.0 pg [facility].; [employer], [facility]. MCHC (RBC) [Mass/Vol] 33.2 g/dL Normal 32.0 - 36.0 g/dL [facility].; [employer] [facility], [facility]. MCV (RBC) [Entitic vol] 94.0 fL Normal 80.0 - 100.0 fL [facility].; [facility], [facility]. Monocytes (Bld) [#/Vol] 0.36 10*3/uL Normal 200 - 950 {cells/uL} [facility].; [employer], [facility]. Monocytes/100 WBC (Bld) 6.2 % Normal [facility].; [employer], [facility]. Neutrophils (Bld) [#/Vol] 2.825 10*3/uL Normal 1500 - 7800 {cells/uL} [facility].; [employer], [facility]. Neutrophils/100 WBC (Bld) 48.7 % Normal [facility].; [employer] [facility], [facility]. Platelet mean volume (Bld) [Entitic vol] 10.8 fL Normal 7.5 - 12.5 fL [facility].; [employer], [facility]. Platelets (Bld) [#/Vol] 250 10*3/uL Normal 140 - 400 [facility].; [employer], [facility]. RBC (Bld) [#/Vol] 4.14 10*6/uL Normal 3.80 - 5.1 0 {Million/uL } [facility].; [employer], [facility]. WBC (Bld) [#/Vol] 5.8 10*3/uL Normal 3.8 - 10.8 [facility].; [employer], [place]. No Panel Informationon 04-27 CHOL/HDLC RATIO 2.2 Normal [facility].; [facility]. GLOBULIN 2.5 Normal 1.9 - 3.7 [facility]; [facility] NON HDL CHOLESTEROL 85 Normal [facility]; [facility] Basophil percentageOrdered B y: Dr. Dior on 02-07-2023 WBC (Bld) [#/Vol] 6.9 10*3/uL 4.4-11.0 [facility] Blood erythrocytes count (nu mber/volume)Ordered By: Dr. Dior on 02-07-2023 RBC (Bld) [#/Vol] 3.94 10*6/uL 4.2-5.4 [facility] Blood hemoglobin measurement (mass/volume)Ordered By: Dr. Dior on 02-07-2023 Hemoglobin (Bld) [Mass/Vol] 12.4 g/dL 12.0-15.0 [facility] Blood platelet mean volumeOr dered By: Dr. Dior on 02-07-2023 Platelet mean volume (Bld) [Entitic vol] 10.3 fL 6.2-12.0 [facility] Determination of erythrocyte mean corpuscular volume (MCV)Ordered By: Dr. Dior on 02-07-2023 MCV (RBC) [Entitic vol] 97.0 fL 81-99 [facility] Hematocrit Auto (Bld) [Volum e fraction]Ordered By: Dr. Dior on 02-07-2023 Hematocrit (Bld) [Volume fraction] 38.2 % 37-47 [facility] Laboratory - Hematology and Cell countsOrdered By: Dr. Dior on 02-07-2023 Erythrocyte distribution width (RBC) [Entitic vol] 45.0 fL 35.1-43.9 [facility] Erythrocyte distribution width (RBC) [Ratio] 12.6 % 11.6-14.6 [facility] MCH (RBC) [Entitic mass] 31.5 pg 27.0-32.0 [facility] MCHC Auto (RBC) [Mass/Vol]Or dered By: Dr. Dior on 02-07-2023 MCHC (RBC) [Mass/Vol] 32.5 g/dL 32-36 [facility] Platelets bldOrdered By: Dr. Dior on 04-21-2023 Platelets (Bld) [#/Vol] 229 10*3/uL 150-450 [facility] Basophil percentageOrdered B y: Dr. Dior on 01-14-2023 LDH [Catalytic activity/Vol] 159 U/L 84-246 [facility] No Panel InformationOrdered By: Dr. Dior on 01-14-2023 CA 125 Antigen 14.4 U/mL 0.0-38.1 [facility] Comment on above: [facility] El ectrochemiluminescence Immunoassay(ECLIA)Values obtained with different assay methods or kits cannotbe used interchangeably. Results cannot be interpreted asabsolute evidence of the presence or absence of malignantdisease.Performed at: [place] [id number] Director: Roberto Fajardo PhD, Phone: [phone] Serum or plasma [id number] protein tumor marker measurement (units/volume)Ordered By: Dr. Dior on 01-14-2023 AFP.tumor marker Qn 1.9 ng/mL 0.0-6.4 [facility] Comment on above: [facility] [place] ectrochemiluminescence Immunoassay(ECLIA)Values obtained with different assay methods or kits cannotbe used interchangeably. Results cannot be interpreted asabsolute evidence of the presence or absence of malignantdisease.This test is not interpretable in females. Serum or plasma carcinoembry onic antigen measurement (mass/volume)Ordered By: Dr. Dior on 01-14-2023 Carcinoembryonic Ag [Mass/Vol] 0.9 ng/mL 0.0-4.7 [facility] Comment on above: Nonsmokers <3.9 Smok ers <5.6[facility] Electrochemiluminescence Immunoassay(ECLIA)Values obtained with different assay methods or kitscannot be used interchangeably. Results cannot beinterpreted as absolute evidence of the presence orabsence of malignant disease. Laboratory - Chemistry and C hemistry - challengeon 03-28-2022 CRP [Mass/Vol] 13.6 mg/L Abnormal [facility] Laboratory - Hematology and Cell countson 03-28-2022 Basophils (Bld) [#/Vol] 0.12 10*3/uL Normal 0 - 200 {cells/uL} [facility].; [facility], [facility]. Basophils/100 WBC (Bld) 1.4 % Normal [facility].; [facility], [facility]. Eosinophils (Bld) [#/Vol] 0.335 10*3/uL Normal 15 - 500 {cells/uL} [facility], [facility].; [facility], [facility]. Eosinophils/100 WBC (Bld) 3.9 % Normal [facility].; [facility], [facility]. Erythrocyte distribution width (RBC) [Ratio] 12.0 % Normal 11.0 - 15.0 % [facility], [facility].; [employer] [facility], [facility]. Hematocrit (Bld) [Volume fraction] 35.4 % Normal 35.0 - 45.0 % [facility], [facility].; [employer] [facility], [facility]. Hemoglobin (Bld) [Mass/Vol] 12.4 g/dL Normal 11.7 - 15.5 g/dL [facility].; [facility], [facility]. Lymphocytes (Bld) [#/Vol] 2.004 10*3/uL Normal 850 - 3900 {cells/uL} [facility].; [employer], [facility]. Lymphocytes/100 WBC (Bld) 23.3 % Normal [facility].; [employer] [facility], [facility]. MCH (RBC) [Entitic mass] 32.6 pg Normal 27.0 - 33.0 pg [facility].; [employer], [facility]. MCHC (RBC) [Mass/Vol] 35.0 g/dL Normal 32.0 - 36.0 g/dL [facility].; [employer], [facility]. MCV (RBC) [Entitic vol] 93.2 fL Normal 80.0 - 100.0 fL [facility].; [employer] [facility], [facility]. Monocytes (Bld) [#/Vol] 0.611 10*3/uL Normal 200 - 950 {cells/uL} [facility], [facility].; [employer] [employer] Monocytes/100 WBC (Bld) 7.1 % Normal [facility].; [facility], [facility]. Neutrophils (Bld) [#/Vol] 5.53 10*3/uL Normal 1500 - 7800 {cells/uL} [facility].; [facility] Neutrophils/100 WBC (Bld) 64.3 % Normal [facility]; [facility] Platelet mean volume (Bld) [Entitic vol] 10.3 fL Normal 7.5 - 12.5 fL [facility]; [facility] Platelets (Bld) [#/Vol] 312 10*3/uL Normal 140 - 400 [facility]; [facility] RBC (Bld) [#/Vol] 3.80 10*6/uL Normal 3.80 - 5.1 0 {Million/uL } [facility]; [facility] WBC (Bld) [#/Vol] 8.6 10*3/uL Normal 3.8 - 10.8 [facility]; [facility] No Panel Informationon 03-28 SRAVANTHI SCREEN, IFA Negative Normal [facility]; [facility] RHEUMATOID FACTOR <14 Normal [facility]; [facility] Laboratory - Chemistry and C hemistry - challengeon 03-14-2022 Urate [Mass/Vol] 3.2 mg/dL Normal 2.5 - 7.0 mg/dL [facility]; [facility] Laboratory - Chemistry and C hemistry - challengeon 09-17-2021 Albumin [Mass/Vol] 4.4 g/dL Normal 3.6 - 5.1 g/dL [facility]; [facility] Albumin/Globulin [Mass ratio] 1.7 {ratio} Normal 1.0 - 2.5 [facility]; [facility] ALP [Catalytic activity/Vol] 45 U/L Normal 31 - 125 U/L [facility].; [facility], [facility]. ALT [Catalytic activity/Vol] 16 U/L Normal 6 - 29 U/L [facility].; [facility]. AST [Catalytic activity/Vol] 14 U/L Normal 10 - 35 U/L [facility], [facility].; [facility], [facility]. Bilirubin [Mass/Vol] 1.8 mg/dL Abnormal 0.2 - 1 .2 mg/dL [facility], [facility].; [facility] Calcium [Mass/Vol] 9.4 mg/dL Normal 8.6 - 10. 2 mg/dL [facility], [facility].; [facility], [facility]. Chloride [Moles/Vol] 108 mmol/L Normal 98 - 11 0 mmol/L [facility], [facility].; [employer] [employer] Cholesterol [Mass/Vol] 148 mg/dL Normal [facility], [facility].; [facility], [facility]. Cholesterol in HDL [Mass/Vol] 65 mg/dL Normal [facility], [facility].; [facility] Cholesterol in LDL [Mass/Vol] 70 mg/dL Normal [facility], [facility].; [employer] [facility] CO2 [Moles/Vol] 28 mmol/L Normal 20 - 32 mmol/L [facility], [facility].; [employer] [employer] Creatinine [Mass/Vol] 0.94 mg/dL Normal 0.50 - 1.10 mg/dL [facility], [facility].; [employer] [facility] GFR/1.73 sq M.predicted among blacks MDRD (S/P/Bld) [Vol rate/Area] 85 mL/min/{1.73_m2} Normal [facility], [facility].; [employer] [employer] Glucose [Mass/Vol] 86 mg/dL Normal 65 - 99 mg/dL [facility], [facility].; [employer] [employer] Potassium [Moles/Vol] 4.4 mmol/L Normal 3.5 - 5.3 mmol/L [facility], [facility].; [employer] [employer] Protein [Mass/Vol] 7.0 g/dL Normal 6.1 - 8.1 g/dL [facility], [facility].; [employer] [employer] Sodium [Moles/Vol] 141 mmol/L Normal 135 - 146 mmol/L [facility], [facility].; [employer] [employer] Triglyceride [Mass/Vol] 53 mg/dL Normal [facility], [facility]; [employer] [facility] Urea nitrogen [Mass/Vol] 18 mg/dL Normal 7 - 25 mg/dL [facility]; [employer] [facility] No Panel Informationon 09-17 BUN/CREATININE RATIO NOT APPLICABLE Normal - [facility]; [employer] [facility] CHOL/HDLC RATIO 2.3 Normal [facility]; [facility] eGFR NON-AFR. SAUDI ARABIAN 73 Normal [facility]; [employer] [facility] GLOBULIN 2.6 Normal 1.9 - 3.7 [facility]; [employer] [facility] NON HDL CHOLESTEROL 83 Normal [facility]; [employer] [facility] Laboratory - Microbiology an d Antimicrobial susceptibilityon 11-06-2018 S. pyogenes Ag EIA Ql (Throat) Positive Abnormal [facility]; [employer] [facility] Laboratory - Hematology and Cell countson 10-23-2018 Hemoglobin (Bld) [Mass/Vol] 8.9 g/dL Abnormal 11.5 - 14.2 g/dL [facility]; [employer] [facility] No Panel Informationon 11-15 PANEL NAME THIN PREP (QU) HPV DNA-HIGH RISK Normal [facility]; [employer] [facility] Laboratory - Microbiology an d Antimicrobial susceptibilityon 09-10-2016 FLUAV Ag IA Ql (Throat) Negative Normal [facility]; [employer] [facility] Laboratory - Chemistry and C hemistry - challengeon 10-25-2015 Anion gap [Moles/Vol] 11 mmol/L Normal 10 - 20 mmol/L [facility]; [employer] [facility] Basic metabolic 2000 panel BMP with eGFR Normal [facility]; [employer] [facility] Calcium [Mass/Vol] 9.3 mg/dL Normal 8.6 - 10. 2 mg/dL [facility]; [employer], [facility]. Chloride [Moles/Vol] 104 mmol/L Normal 98 - 10 7 mmol/L [facility]; [employer], [facility] Cholesterol [Mass/Vol] 164 mg/dL Normal 0 - 200 mg/dL [facility].; [facility]. Cholesterol in HDL [Mass or moles/Vol] 55 mg/dL Normal 40 - 60 mg/dL [facility].; [facility], [facility]. Cholesterol in LDL [Mass/Vol] 90 mg/dL Normal 0 - 129 mg/dL [facility], [facility].; [facility], [facility]. Cholesterol.total/Ch olesterol in HDL [Mass ratio] 3.0 {ratio} Normal 0.0 - 5.0 [facility].; [facility], [facility]. CO2 [Moles/Vol] 28.0 mmol/L Normal 13.0 - 29.0 mmol/L [facility].; [facility], [facility]. Creatinine [Mass/Vol] 1.1 mg/dL Normal 0.6 - 1.2 mg/dL [facility], [facility].; [facility], [facility]. GFR/1.73 sq M.predicted among blacks MDRD (S/P/Bld) [Vol rate/Area] mL/min/{1.73_m2} Normal 60 - 999 {ML/MINUTE} [facility], [facility].; [facility], [facility]. GFR/1.73 sq M.predicted MDRD (S/P/Bld) [Vol rate/Area] 55 {ML/MINUTE} Abnormal 60 - 999 {ML/MINUTE} [facility], [facility].; [employer] [facility], [facility]. Glucose [Mass/Vol] 91 mg/dL Normal 74 - 106 mg/dL [facility].; [facility], [facility]. Lipid 1996 panel LIPID PROFILE Normal [facility].; [employer] [facility], [facility]. Potassium [Moles/Vol] 4.4 mmol/L Normal 3.5 - 5.1 mmol/L [facility].; [facility], [facility]. Sodium [Moles/Vol] 139 mmol/L Normal 136 - 145 mmol/L [facility], [facility].; [facility], [facility]. Triglyceride [Mass/Vol] 93 mg/dL Normal 0 - 150 mg/dL [facility].; [facility], [facility]. Urea nitrogen [Mass/Vol] 13 mg/dL Normal 6 - 20 mg/dL [facility].; [employer] No Panel Informationon 10-25 AGE 40 {years} Normal [facility].; [facility] Laboratory - Cytologyon -2 Microscopic observation Cyto stain Nom (Cvx) SEE NOTE Normal [facility].; [employer] Laboratory - Microbiology an d Antimicrobial susceptibilityon 10-01-2012 S. pyogenes Ag EIA Ql (Throat) Negative Normal [facility].; [employer] [facility]. Laboratory - Microbiology an d Antimicrobial susceptibilityon 09-29-2012 FLUAV Ag IA Ql (Throat) Negative Normal [facility].; [employer] Laboratory - Microbiology an d Antimicrobial susceptibilityon 12-10-2010 S. pyogenes Ag EIA Ql (Throat) Negative Normal [facility].; [employer] Laboratory - Cytologyon 09-20 Cytology report Cyto stain Doc (Cvx/Vag) SEE NOTE Normal [facility].; [employer] Vital Signs Date Time Vital Sign Value Performing Clinician Facility 04-27-2025 09:21040 Body height 167.64 cm [facility]; [facility] 04-27-2025 09:21-0400 Body mass index (BMI) [Ratio] 24.53 kg/m2 [facility]; [facility] 04-27-2025 09:21040 Body surface area Derived from formula 1.78 m2 [facility]; [facility] 04-27-2025 09:21040 Body weight 68.95 kg [facility].; [facility] 04-27-2025 09:21-0400 Diastolic blood pressure 68 mm[Hg] [facility]; [employer] [facility]. Comment on above: Patient Position: Sitting; Cuff Location : Left Arm; Cuff Size: Standard 04-27-2025 09:21-0400 Heart rate 65 /min [facility], [facility].; [employer] [facility], [place]. Comment on above: Pattern: Regular 04-27-2025 09:21-0400 Systolic blood pressure 100 mm[Hg] [facility] [employer] [facility], Inc. Comment on above: Patient Position: Sitting; Cuff Location : Left Arm; Cuff Size: Standard 10-08-2024 13:23-0500 Body height 167.64 cm Jil Estrada EXPELLER WORKER [facility], [facility].; [employer] [facility], [facility]. 10-08-2024 13:23-0500 Body mass index (BMI) [Ratio] 24.53 kg/m2 Jil Estrada [facility], [facility].; [employer] [facility], Inc. 10-08-2024 13:23-0500 Body surface area Derived from formula 1.78 m2 Jil Estrada [facility], [facility].; [employer] [facility], [facility]. 10-08-2024 13:23-0500 Body weight 68.95 kg Jil Estrada EXPELLER WORKER [facility], [facility].; [employer] [facility], [facility]. 10-08-2024 13:23-0500 Diastolic blood pressure 72 mm[Hg] Jil Estrada [facility], [facility].; [employer] [facility], [place]. Comment on above: Patient Position: Sitting; Cuff Location : Left Arm; Cuff Size: Standard 10-08-2024 13:23-0500 Heart rate 66 /min Jil Estrada EXPELLER WORKER [facility], [facility].; [employer] [facility] HospitalLocal[facility]. Comment on above: Pattern: Regular 10-08-2024 13:23-0500 Systolic blood pressure 110 mm[Hg] Jil Estrada [facility], [facility].; [employer], [place]. Comment on above: Patient Position: Sitting; Cuff Location : Left Arm; Cuff Size: Standard 05-14-2024 13:57-0400 Body height 167.64 cm Mala Nichole LPN [facility], [facility].; [employer], [place]. 05-14-2024 13:57-0400 Body mass index (BMI) [Ratio] 24.21 kg/m2 Mala Nichole LPN [facility], [facility].; [facility]. 05-14-2024 13:57-0400 Body surface area Derived from formula 1.77 m2 Mala Nichole LPN [facility], [facility].; [facility], [facility]. 05-14-2024 13:57-0400 Body weight 68.04 kg Mala Nichole LPN [facility], [facility].; [facility], [facility]. 05-14-2024 13:57-0400 Diastolic blood pressure 74 mm[Hg] Mala Nichole LPN [facility].; [facility], [facility]. Comment on above: Patient Position: Sitting; Cuff Location : Left Arm; Cuff Size: Standard 05-14-2024 13:57-0400 Heart rate 61 /min Mala Nichole LPN [facility], [facility].; [facility], [facility]. Comment on above: Pattern: Regular 05-14-2024 13:57-0400 Systolic blood pressure 116 mm[Hg] Mala Nichole LPN [facility], [facility].; [facility], [facility]. Comment on above: Patient Position: Sitting; Cuff Location : Left Arm; Cuff Size: Standard 05-15-2023 10:24-0400 Body weight 65.77 kg Johnathan Johnson LPN [facility], [facility].; [facility], [facility]. 05-15-2023 10:24-0400 Diastolic blood pressure 71 mm[Hg] Johnathan Johnson LPN [facility], [facility].; [employer] [facility], [facility]. Comment on above: Patient Position: Sitting; Cuff Location : Left Arm; Cuff Size: Standard 05-15-2023 10:24-0400 Heart rate 71 /min Johnathan Johnson LPN [facility], [facility].; [employer], [place]. Comment on above: Pattern: Regular 05-15-2023 10:24-0400 Systolic blood pressure 106 mm[Hg] Johnathan Johnson LPN [facility], [facility].; [employer] Comment on above: Patient Position: Sitting; Cuff Location : Left Arm; Cuff Size: Standard 02-13-2023 18:00-0400 Body temperature 98.1 [degF] [facility] 02-13-2023 18:00-0400 Diastolic blood pressure 68 mm[Hg] [facility] 02-13-2023 18:00-0400 Heart rate 65 /min [facility] 02-13-2023 18:00-0400 Respiratory rate 18 /min [facility] 02-13-2023 18:00-0400 SaO2% (BldA) [Mass fraction] 99 % [facility] 02-13-2023 18:00-0400 Systolic blood pressure 127 mm[Hg] [facility] 02-13-2023 10:27-0400 Body height 170.18 cm [facility] 02-13-2023 10:27-0400 Body mass index (BMI) [Ratio] 22.9 kg/m2 [facility] 02-13-2023 10:27-0400 Body weight 66.4 kg [facility] 04-04-2022 13:57-0400 Body height 167.64 cm Lucy Plaza MA [employer], [facility].; [employer], [place]. 04-04-2022 13:57-0400 Diastolic blood pressure 74 mm[Hg] Lucy Plaza MA [employer].; [employer], [place]. Comment on above: Patient Position: Sitting; Cuff Location : Left Arm; Cuff Size: Standard 04-04-2022 13:57-0400 Heart rate 75 /min Lucy Plaza MA [employer] [facility], Inc.; [employer], [employer] Comment on above: Pattern: Regular 04-04-2022 13:57-0400 Systolic blood pressure 110 mm[Hg] Lucy Plaza MA [employer], [place]. Comment on above: Patient Position: Sitting; Cuff Location : Left Arm; Cuff Size: Standard 03-28-2022 13:04-0400 Body weight 66.68 kg Lucy Plaza MA [employer].; [employer] 03-28-2022 13:04-0400 Diastolic blood pressure 70 mm[Hg] Lucy Plaza MA [employer].; [employer], [place]. Comment on above: Patient Position: Sitting; Cuff Location : Left Arm; Cuff Size: Standard 03-28-2022 13:04-0400 Heart rate 80 /min Lucy Plaza MA [facility].; [employer] [facility]. Comment on above: Pattern: Regular 03-28-2022 13:04-0400 Systolic blood pressure 107 mm[Hg] Lucy Plaza MA [facility].; [employer] [facility]. Comment on above: Patient Position: Sitting; Cuff Location : Left Arm; Cuff Size: Standard 03-14-2022 10:25-0400 Body height 167.64 cm Mala Nichole LPN [facility], [facility].; [employer] [facility], [facility]. 03-14-2022 10:25-0400 Body mass index (BMI) [Ratio] 23.73 kg/m2 Mala Nichole LPN [facility].; [employer] [facility], [facility]. 03-14-2022 10:25-0400 Body surface area Derived from formula 1.75 m2 Mala Nichole LPN [facility], [facility].; [employer] [facility], [facility]. 03-14-2022 10:25-0400 Body weight 66.68 kg Mala Nichole LPN [facility].; [employer] [facility]. 03-14-2022 10:25-0400 Diastolic blood pressure 78 mm[Hg] Mala Nichole LPN [facility].; [employer]. Comment on above: Patient Position: Sitting; Cuff Location : Left Arm; Cuff Size: Standard 03-14-2022 10:25-0400 Heart rate 71 /min Maal Nichole LPN [facility].; [employer]. Comment on above: Pattern: Regular 03-14-2022 10:25-0400 Systolic blood pressure 114 mm[Hg] Mala Nichole LPN [facility], [facility].; [employer]. Comment on above: Patient Position: Sitting; Cuff Location : Left Arm; Cuff Size: Standard 09-19-2021 09:41-0500 Body height 167.64 cm Galina Romero LPN [facility], [facility].; [employer]. 09-19-2021 09:41-0500 Body mass index (BMI) [Ratio] 23.08 kg/m2 Galina Romero LPN [facility], [facility].; [facility], [facility]. 09-19-2021 09:41-0500 Body surface area Derived from formula 1.73 m2 Galina Romero [facility], [facility].; [facility], [facility]. 09-19-2021 09:41-0500 Body weight 64.86 kg Galina Romero [facility], [facility].; [employer] [facility], [facility]. 09-19-2021 09:41-0500 Diastolic blood pressure 70 mm[Hg] Galina Romero [facility], [facility].; [employer] [facility], [place]. Comment on above: Patient Position: Sitting; Cuff Location : Left Arm; Cuff Size: Standard 09-19-2021 09:41-0500 Heart rate 71 /min Galina Romero [facility], [facility].; [employer] [facility], Inc. Comment on above: Pattern: Regular 09-19-2021 09:41-0500 Systolic blood pressure 106 mm[Hg] Galina Romero [facility], [facility].; [employer] [facility], [place]. Comment on above: Patient Position: Sitting; Cuff Location : Left Arm; Cuff Size: Standard 05-15-2021 08:13-0400 Body height 167.64 cm Jaimie Yoon EXPELLER WORKER [facility], [facility].; [employer] [facility], [facility]. 05-15-2021 08:13-0400 Body mass index (BMI) [Ratio] 23.24 kg/m2 Jaimie Cooper Karrie EXPELLER WORKER [facility], [facility].; [employer] [facility], [facility]. 05-15-2021 08:13-0400 Body surface area Derived from formula 1.74 m2 Jaimie Cooper Karrie EXPELLER WORKER [facility], [facility].; [employer] [facility], [facility]. 05-15-2021 08:13-0400 Body weight 65.32 kg Jaimie Cooper Karrie [facility], [facility].; [employer], [facility]. 05-15-2021 08:13-0400 Diastolic blood pressure 74 mm[Hg] Jaimie Calluckey EXPELLER WORKER [facility], [facility].; [employer], [place]. Comment on above: Patient Position: Sitting; Cuff Location : Left Arm; Cuff Size: Large 05-15-2021 08:13-0400 Heart rate 70 /min Jaimie Yoon MARCELLO [facility], Inc.; [employer], [place]. Comment on above: Pattern: Regular 05-15-2021 08:13-0400 Systolic blood pressure 107 mm[Hg] Jaimie Yoon MARCELLO [facility], Inc.; [employer], [employer] Comment on above: Patient Position: Sitting; Cuff Location : Left Arm; Cuff Size: Large 06-09-2020 14:54-0400 Body height 167.64 cm Cora Wheeler LPN [facility], Inc.; [employer], [place]. 06-09-2020 14:54-0400 Body mass index (BMI) [Ratio] 22.6 kg/m2 Cora Wheeler [facility], Inc.; [employer], Inc[employer] 06-09-2020 14:54-0400 Body surface area Derived from formula 1.72 m2 Cora Wheeler [facility], Inc.; [employer], Inc[employer] 06-09-2020 14:54-0400 Body weight 63.5 kg Cora Wheeler [facility] [employer] [facility], Inc.; [employer], [place]. 06-09-2020 14:54-0400 Diastolic blood pressure 66 mm[Hg] Cora Wheeler LPN [facility], Inc.; [employer], [place]. Comment on above: Patient Position: Sitting; Cuff Location : Left Arm; Cuff Size: Standard 06-09-2020 14:54-0400 Heart rate 76 /min Cora Wheeler LPN [facility], [facility].; [employer], [place]. Comment on above: Pattern: Regular 06-09-2020 14:54-0400 Systolic blood pressure 102 mm[Hg] Cora Wheeler [facility] [employer] [facility], Inc.; [employer], [place]. Comment on above: Patient Position: Sitting; Cuff Location : Left Arm; Cuff Size: Standard 11-20-2018 15:13-0500 Body height 167.64 cm Elva Starks LPN Work Phone: [employer] [facility].; [employer]. 11-20-2018 15:13-0500 Body mass index (BMI) [Ratio] 22.76 kg/m2 Elva Raudel LPN Work Phone: [employer].; [employer] 11-20-2018 15:13-0500 Body surface area Derived from formula 1.72 m2 [employer] Work Phone: [employer]. 11-20-2018 15:13-0500 Body weight 63.96 kg Elva Raudel LPN Work Phone: [employer]. 11-20-2018 15:13-0500 Diastolic blood pressure 63 mm[Hg] Elva Raudel LPN Work Phone: [employer]. Comment on above: Patient Position: Sitting; Cuff Location : Left Arm; Cuff Size: Standard 11-20-2018 15:13-0500 Heart rate 70 /min Elva Raudel LPN Work Phone: [employer]. Comment on above: Pattern: Regular 11-20-2018 15:13-0500 Systolic blood pressure 108 mm[Hg] Elva Raudel LPN Work Phone: [employer]. Comment on above: Patient Position: Sitting; Cuff Location : Left Arm; Cuff Size: Standard 11-06-2018 15:07-0500 Body height 167.64 cm Cora Wheeler LPN [employer] 11-06-2018 15:07-0500 Body mass index (BMI) [Ratio] 22.76 kg/m2 Cora Wheeler LPN [employer] 11-06-2018 15:07-0500 Body surface area Derived from formula 1.72 m2 Cora Wheeler LPN [employer]. 11-06-2018 15:07-0500 Body temperature 98.1 [degF] Cora Atkinskrystal ARMEND[employer]IZ [employer], [employer].; [employer], [employer] Comment on above: Method: Tympanic 11-06-2018 15:07-0500 Body weight 63.96 kg Cora Atkinskrystal [employer], [employer].; [employer], [employer] 11-06-2018 15:07-0500 Diastolic blood pressure 68 mm[Hg] Cora Summer [employer], [employer].; [employer], [employer] Comment on above: Patient Position: Sitting; Cuff Location : Left Arm; Cuff Size: Standard 11-06-2018 15:07-0500 Heart rate 93 /min Coralouise Wheeler LPN [employer], [employer].; [employer] Comment on above: Pattern: Regular 11-06-2018 15:07-0500 Inhaled oxygen concentration 20 % Cora Wheeler LPN [employer], [employer].; [employer] Comment on above: Room air 11-06-2018 15:07-0500 Inhaled oxygen concentration 21 % Coralouise Wheeler LPN [employer], [employer].; [employer], [employer] Comment on above: Room air 11-06-2018 15:07-0500 SaO2% (BldA) [Mass fraction] 99 % Cora Wekrystal [employer], [employer].; [employer], [employer] 11-06-2018 15:07-0500 Systolic blood pressure 102 mm[Hg] Cora Summer [employer], [employer].; [employer] Comment on above: Patient Position: Sitting; Cuff Location : Left Arm; Cuff Size: Standard 10-23-2018 14:55-0500 Body height 167.[address] [facility] Work Phone: [employer].; [employer] 10-23-2018 14:55-0500 Body mass index (BMI) [Ratio] 23.08 kg/m2 [facility] Work Phone: [employer].; [employer]. 10-23-2018 14:55-0500 Body surface area Derived from formula 1.73 m2 Elva Starks LPN Work Phone: [employer]. 10-23-2018 14:55-0500 Body weight 64.86 kg Elva Starks LPN Work Phone: [employer].; [employer]. 10-23-2018 14:55-0500 Diastolic blood pressure 63 mm[Hg] Elva Starks LPN Work Phone: [employer]. Comment on above: Patient Position: Sitting; Cuff Location : Left Arm; Cuff Size: Standard 10-23-2018 14:55-0500 Heart rate 86 /min Elva Starks LPN Work Phone: [employer]. Comment on above: Pattern: Regular 10-23-2018 14:55-0500 Systolic blood pressure 108 mm[Hg] Elva Starks LPN Work Phone: [employer].; [employer]. Comment on above: Patient Position: Sitting; Cuff Location : Left Arm; Cuff Size: Standard 09-15-2018 08:06-0500 Body height 167.64 cm Monica Osborn PA-C Work Phone: [employer]; [employer]. 09-15-2018 08:06-0500 Body temperature 97.8 [degF] Monica Osborn PA-C Work Phone: [employer]. Comment on above: Method: Tympanic 09-15-2018 08:06-0500 Diastolic blood pressure 60 mm[Hg] Monica Osborn PA-C Work Phone: [employer]. Comment on above: Patient Position: Sitting; Cuff Location : Left Arm; Cuff Size: Standard 09-15-2018 08:06-0500 Heart rate 65 /min Monica Osborn PA-C Work Phone: [employer]. Comment on above: Pattern: Regular 09-15-2018 08:06-0500 Systolic blood pressure 97 mm[Hg] Monica Osborn PA-C Work Phone: [employer]. Comment on above: Patient Position: Sitting; Cuff Location : Left Arm; Cuff Size: Standard 08-25-2018 15:23-0500 Body height 167.64 cm Monica Osborn PA-C Work Phone: [employer]. 08-25-2018 15:23-0500 Body mass index (BMI) [Ratio] 23.08 kg/m2 Monica Osborn PA-C Work Phone: [employer] 08-25-2018 15:23-0500 Body surface area Derived from formula 1.73 m2 Monica Osborn PA-C Work Phone: [employer]. 08-25-2018 15:23-0500 Body temperature 98.3 [degF] Monica Osborn PA-C Work Phone: [employer]; [employer]. Comment on above: Method: Tympanic 08-25-2018 15:23-0500 Body weight 64.86 kg Monica Osborn PA-C Work Phone: [employer]. 08-25-2018 15:23-0500 Diastolic blood pressure 64 mm[Hg] Monica Osborn PA-C Work Phone: [employer]. Comment on above: Patient Position: Sitting; Cuff Location : Left Arm; Cuff Size: Standard 08-25-2018 15:23-0500 Heart rate 70 /min Monica Osborn PA-C Work Phone: [employer]. Comment on above: Pattern: Regular 08-25-2018 15:23-0500 Systolic blood pressure 112 mm[Hg] Monica Osborn PA-C [facility] Phone: [facility] [employer]. Comment on above: Patient Position: Sitting; Cuff Location : Left Arm; Cuff Size: Standard 12-11-2017 14:23-0500 Body height 167.64 cm Cora Wheeler LPN [facility] [facility] [employer]. 12-11-2017 14:23-0500 Body mass index (BMI) [Ratio] 22.27 kg/m2 Cora Wheeler LPN [employer] [facility] [employer]. 12-11-2017 14:23-0500 Body surface area Derived from formula 1.71 m2 Cora Wheeler LPN [facility] [facility] [employer] 12-11-2017 14:23-0500 Body weight 62.6 kg Cora Wheeler LPN [facility] [employer] [facility] [employer]. 12-11-2017 14:23-0500 Diastolic blood pressure 72 mm[Hg] Cora Wheeler LPN [facility] [employer] [facility] [employer]. Comment on above: Patient Position: Sitting; Cuff Location : Left Arm; Cuff Size: Standard 12-11-2017 14:23-0500 Heart rate 71 /min Cora Wheeler LPN [facility] [employer] [facility] [employer]. Comment on above: Pattern: Regular 12-11-2017 14:23-0500 Systolic blood pressure 114 mm[Hg] Cora Wheeler LPN [facility] [employer] [facility] [employer]. Comment on above: Patient Position: Sitting; Cuff Location : Left Arm; Cuff Size: Standard 12-02-2017 15:17-0500 Body height 167.64 cm Sol Del Rio RN [employer], [place].; [employer]. 12-02-2017 15:17-0500 Body mass index (BMI) [Ratio] 22.43 kg/m2 Sol Del Rio RN [employer]. 12-02-2017 15:17-0500 Body surface area Derived from formula 1.71 m2 Sol Del Rio RN [facility] [employer] [facility] [employer]. 12-02-2017 15:17-0500 Body temperature 99.1 [degF] Sol Del Rio RN [employer]. Comment on above: Method: Tympanic 12-02-2017 15:17-0500 Body weight 63.05 kg Sol Del Rio RN [employer]. 12-02-2017 15:17-0500 Diastolic blood pressure 65 mm[Hg] Sol Del Rio RN [employer]. Comment on above: Patient Position: Sitting; Cuff Location : Left Arm; Cuff Size: Standard 12-02-2017 15:17-0500 Heart rate 78 /min Sol Del Rio RN [employer]. Comment on above: Pattern: Regular 12-02-2017 15:17-0500 Systolic blood pressure 119 mm[Hg] Sol Del Rio RN [employer]. Comment on above: Patient Position: Sitting; Cuff Location : Left Arm; Cuff Size: Standard 11-15-2016 15:07-0500 Body height 172.72 cm Monica Dior RN Work Phone: [employer].; [employer]. 11-15-2016 15:07-0500 Body mass index (BMI) [Ratio] 23.11 kg/m2 Monica Dior RN Work Phone: [employer].; [employer]. 11-15-2016 15:07-0500 Body surface area Derived from formula 1.82 m2 Monica Dior RN Work Phone: [employer].; [employer]. 11-15-2016 15:07-0500 Body weight 68.95 kg Monica Dior RN Work Phone: [employer]. 11-15-2016 15:07-0500 Diastolic blood pressure 73 mm[Hg] Monica Dior RN Work Phone: [employer]. Comment on above: Patient Position: Sitting; Cuff Location : Left Arm; Cuff Size: Standard 11-15-2016 15:07-0500 Heart rate 76 /min Monica Dior RN Work Phone: [employer].; [employer]. Comment on above: Pattern: Regular 11-15-2016 15:07-0500 Systolic blood pressure 111 mm[Hg] Monica Dior RN Work Phone: [employer].; [employer]. Comment on above: Patient Position: Sitting; Cuff Location : Left Arm; Cuff Size: Standard 10-11-2016 10:53-0500 Body temperature 97.9 [degF] Jacinta [facility].; [employer]. 10-11-2016 10:53-0500 Body weight 71.22 kg Jacinta [facility] [employer].; [employer]. 10-11-2016 10:53-0500 Diastolic blood pressure 71 mm[Hg] Jacinta Price LPN [employer], [place].; [employer]. Comment on above: Patient Position: Sitting; Cuff Location : Left Arm; Cuff Size: Standard 10-11-2016 10:53-0500 Heart rate 75 /min Jacinta Price LPN [employer].; [employer]. Comment on above: Pattern: Regular 10-11-2016 10:53-0500 Inhaled oxygen concentration 20 % Jacinta Price LPN [employer].; [employer]. Comment on above: Room air 10-11-2016 10:53-0500 Inhaled oxygen concentration 21 % Jacinta Price LPN [employer], [place].; [employer]. Comment on above: Room air 10-11-2016 10:53-0500 SaO2% (BldA) [Mass fraction] 99 % Jacintasoo Price MARCELLO [facility] [employer]. 10-11-2016 10:53-0500 Systolic blood pressure 115 mm[Hg] Jacintasoo Price MARCELLO [facility] [employer]. Comment on above: Patient Position: Sitting; Cuff Location : Left Arm; Cuff Size: Standard 09-13-2016 09:49-0500 Body temperature 99.2 [degF] Jacinta Stewart Albert MARCELLO [facility] [employer]. 09-13-2016 09:49-0500 Body weight 70.76 kg Jacinta Price EXPELLER WORKER [facility], [place].; [employer]. 09-13-2016 09:49-0500 Diastolic blood pressure 78 mm[Hg] Jacintasoo Price MARCELLO [facility] [employer]. Comment on above: Patient Position: Sitting; Cuff Location : Left Arm; Cuff Size: Standard 09-13-2016 09:49-0500 Heart rate 94 /min Jacinta Terry Albert MARCELLO [facility] [employer]. Comment on above: Pattern: Regular 09-13-2016 09:49-0500 Inhaled oxygen concentration 20 % Jacinta Price MARCELLO [employer] [facility], [facility] [employer]. Comment on above: Room air 09-13-2016 09:49-0500 Inhaled oxygen concentration 21 % Jacintasoo Price MARCELLO [employer] [facility], [facility] [employer]. Comment on above: Room air 09-13-2016 09:49-0500 SaO2% (BldA) [Mass fraction] 97 % Jacinta Price MARCELLO [employer] [facility], [facility] [employer]. 09-13-2016 09:49-0500 Systolic blood pressure 118 mm[Hg] Jacinta Stewart Albert MARCELLO [employer] [facility], [place].; [employer]. Comment on above: Patient Position: Sitting; Cuff Location : Left Arm; Cuff Size: Standard 09-10-2016 08:33-0500 Body temperature 99.7 [degF] Monica Osborn PA-C Work Phone: [employer]; [employer]. Comment on above: Method: Tympanic 09-10-2016 08:33-0500 Body weight 70.76 kg Monica Osborn PA-C Work Phone: [employer]; [employer]. 09-10-2016 08:33-0500 Diastolic blood pressure 73 mm[Hg] Monica Osborn PA-C Work Phone: [employer].; [employer]. Comment on above: Patient Position: Sitting; Cuff Location : Right Arm; Cuff Size: Standard 09-10-2016 08:33-0500 Heart rate 94 /min Monica Osborn PA-C Work Phone: [employer]; [employer]. Comment on above: Pattern: Regular 09-10-2016 08:33-0500 Inhaled oxygen concentration 20 % Monica Osborn PA-C Work Phone: [employer]; [employer]. Comment on above: Room air 09-10-2016 08:33-0500 Inhaled oxygen concentration 21 % Monica Osborn PA-C Work Phone: [employer]; [employer]. Comment on above: Room air 09-10-2016 08:33-0500 SaO2% (BldA) [Mass fraction] 97 % Monica Osborn PA-C Work Phone: [employer]; [employer]. 09-10-2016 08:33-0500 Systolic blood pressure 119 mm[Hg] Monica Osborn PA-C Work Phone: [employer]; [employer]. Comment on above: Patient Position: Sitting; Cuff Location : Right Arm; Cuff Size: Standard 09-07-2016 09:25-0500 Body height 168.91 cm Suzie Giraldo LPN [employer]. 09-07-2016 09:25-0500 Body mass index (BMI) [Ratio] 24.8 kg/m2 Suzie Giraldo LPN [facility] [employer] [facility], [facility] 09-07-2016 09:25-0500 Body surface area Derived from formula 1.81 m2 Suzie Giraldo LPN [facility], [facility] [employer], [employer] 09-07-2016 09:25-0500 Body temperature 99.5 [degF] Suzie Giraldo [facility] [employer], [employer] Comment on above: Method: Tympanic 09-07-2016 09:25-0500 Body weight 70.76 kg Suzie Giraldo EXPELLER WORKER [facility] [employer], [employer] 09-07-2016 09:25-0500 Diastolic blood pressure 76 mm[Hg] Suzie Giraldo [facility], [facility] [employer], [employer] Comment on above: Patient Position: Sitting; Cuff Location : Right Arm; Cuff Size: Standard 09-07-2016 09:25-0500 Heart rate 96 /min Suzie Giraldo EXPELLER WORKER [facility] [employer], [employer] Comment on above: Pattern: Regular 09-07-2016 09:25-0500 Inhaled oxygen concentration 20 % Suzie Giraldo EXPELLER WORKER [facility] [employer], [employer] Comment on above: Room air 09-07-2016 09:25-0500 Inhaled oxygen concentration 21 % Suzie Giraldo [facility], [facility] [employer], [employer] Comment on above: Room air 09-07-2016 09:25-0500 SaO2% (BldA) [Mass fraction] 97 % Suzie Giraldo EXPELLER WORKER [facility] [employer], [employer] 09-07-2016 09:25-0500 Systolic blood pressure 113 mm[Hg] Suzie Giraldo [facility], [facility] [employer], [place]. Comment on above: Patient Position: Sitting; Cuff Location : Right Arm; Cuff Size: Standard 02-01-2016 08:22-0400 Body height 168.91 cm Jaimie Yoon [facility], [facility] [employer], [place]. 02-01-2016 08:22-0400 Body mass index (BMI) [Ratio] 24.64 kg/m2 Jaimie Yoon EXPELLER WORKER [facility] [employer] [facility], [place]. 02-01-2016 08:22-0400 Body surface area Derived from formula 1.8 m2 Jaimie Yoon EXPELLER WORKER [facility] [employer] [facility], [place]. 02-01-2016 08:22-0400 Body weight 70.31 kg Jaimie Yoon EXPELLER WORKER [facility] [employer], [place]. 02-01-2016 08:22-0400 Diastolic blood pressure 75 mm[Hg] Jaimie Yoon [facility], [facility] [employer], [place]. Comment on above: Patient Position: Sitting; Cuff Location : Left Arm; Cuff Size: Large 02-01-2016 08:22-0400 Heart rate 80 /min Jaimie Yoon EXPELLER WORKER [facility] [employer], [place]. Comment on above: Pattern: Regular 02-01-2016 08:22-0400 Inhaled oxygen concentration 20 % Jaimie Yoon [facility] [employer], [place]. Comment on above: Room air 02-01-2016 08:22-0400 Inhaled oxygen concentration 21 % Jaimie Yoon [facility] [employer], [place]. Comment on above: Room air 02-01-2016 08:22-0400 SaO2% (BldA) [Mass fraction] 97 % GerriAllison Yoon [facility], [facility] [employer], [place]. 02-01-2016 08:22-0400 Systolic blood pressure 117 mm[Hg] Jaimie Yoon [facility] [employer]. Comment on above: Patient Position: Sitting; Cuff Location : Left Arm; Cuff Size: Large 11-06-2015 09:13-0500 Body height 168.91 cm Sol Del Rio RN [facility], [place] [employer], [place]. 11-06-2015 09:13-0500 Body mass index (BMI) [Ratio] 24.64 kg/m2 Sol Del Rio RN [employer]. 11-06-2015 09:13-0500 Body surface area Derived from formula 1.8 m2 Sol Del Rio RN [employer]. 11-06-2015 09:13-0500 Body weight 70.31 kg Sol Del Rio RN [facility] [employer]. 11-06-2015 09:13-0500 Diastolic blood pressure 77 mm[Hg] Sol Del Rio RN [employer].; [employer]. Comment on above: Patient Position: Sitting; Cuff Location : Left Arm; Cuff Size: Standard 11-06-2015 09:13-0500 Heart rate 90 /min Sol Del Rio RN [employer]. Comment on above: Pattern: Regular 11-06-2015 09:13-0500 Systolic blood pressure 121 mm[Hg] Sol Del Rio RN [employer]. Comment on above: Patient Position: Sitting; Cuff Location : Left Arm; Cuff Size: Standard 08-25-2015 08:06-0500 Body temperature 99.4 [degF] Jacinta Price LPN [employer].; [employer]. 08-25-2015 08:06-0500 Body weight 70.31 kg Jacinta Price LPN [employer].; [employer]. 08-25-2015 08:06-0500 Diastolic blood pressure 82 mm[Hg] Jacinta Price LPN [employer].; [employer]. Comment on above: Patient Position: Sitting; Cuff Location : Left Arm; Cuff Size: Standard 08-25-2015 08:06-0500 Heart rate 97 /min Jacinta Price LPN [employer].; [employer]. Comment on above: Pattern: Regular 08-25-2015 08:06-0500 Inhaled oxygen concentration 20 % Jacinta Price LPN [employer].; [employer]. Comment on above: Room air 08-25-2015 08:06-0500 Inhaled oxygen concentration 21 % Jacinta Price LPN [facility] [facility] [employer]. Comment on above: Room air 08-25-2015 08:06-0500 SaO2% (BldA) [Mass fraction] 97 % Jacinta Price LPN [employer]. 08-25-2015 08:06-0500 Systolic blood pressure 126 mm[Hg] Jacinta Price LPN [employer].; [employer]. Comment on above: Patient Position: Sitting; Cuff Location : Left Arm; Cuff Size: Standard 11-04-2014 15:17-0500 Body height 167.64 cm Monica Dior RN Work Phone: [employer].; [employer]. 11-04-2014 15:17-0500 Body mass index (BMI) [Ratio] 25.02 kg/m2 Monica Dior RN Work Phone: [employer].; [employer]. 11-04-2014 15:17-0500 Body surface area Derived from formula 1.79 m2 Monica Dior RN Work Phone: [employer].; [employer]. 11-04-2014 15:17-0500 Body weight 70.31 kg Monica Dior RN Work Phone: [employer].; [employer]. 11-04-2014 15:17-0500 Diastolic blood pressure 74 mm[Hg] Monica Dior RN Work Phone: [employer].; [employer]. Comment on above: Patient Position: Sitting; Cuff Location : Left Arm; Cuff Size: Large 11-04-2014 15:17-0500 Heart rate 66 /min Monica Dior RN Work Phone: [employer].; [employer]. Comment on above: Pattern: Regular 11-04-2014 15:17-0500 Systolic blood pressure 114 mm[Hg] Monica Dior RN Work Phone: [employer]; [employer]. Comment on above: Patient Position: Sitting; Cuff Location : Left Arm; Cuff Size: Large 02-28-2014 13:37-0400 Body height 167.64 cm Elva Starks EXPELLER WORKER Work Phone: [employer]. 02-28-2014 13:37-0400 Body mass index (BMI) [Ratio] 24.37 kg/m2 Elva Brennany EXPELLER WORKER Work Phone: [employer]. 02-28-2014 13:37-0400 Body surface area Derived from formula 1.78 m2 Elva Brennany EXPELLER WORKER Work Phone: [employer]; [employer]. 02-28-2014 13:37-0400 Body temperature 100.8 [degF] Elva Starks EXPELLER WORKER Work Phone: [employer]; [employer]. Comment on above: Method: Tympanic 02-28-2014 13:37-0400 Body weight 68.49 kg Elva Starks EXPELLER WORKER Work Phone: [employer]; [employer]. 02-28-2014 13:37-0400 Diastolic blood pressure 70 mm[Hg] Elva Brennany EXPELLER WORKER Work Phone: [employer]; [employer]. Comment on above: Patient Position: Sitting; Cuff Location : Left Arm; Cuff Size: Standard 02-28-2014 13:37-0400 Heart rate 89 /min Elva Raudel EXPELLER WORKER Work Phone: [employer]; [employer]. Comment on above: Pattern: Regular 02-28-2014 13:37-0400 Systolic blood pressure 101 mm[Hg] Elva Raudel EXPELLER WORKER Work Phone: [employer]; [employer]. Comment on above: Patient Position: Sitting; Cuff Location : Left Arm; Cuff Size: Standard 12-24-2013 14:46-0500 Body height 167.64 cm Monica Dior RN Work Phone: [employer].; [employer]. 12-24-2013 14:46-0500 Body mass index (BMI) [Ratio] 24.86 kg/m2 Monica Dior RN Work Phone: [employer].; [employer]. 12-24-2013 14:46-0500 Body surface area Derived from formula 1.79 m2 Monica Dior RN Work Phone: [employer].; [employer]. 12-24-2013 14:46-0500 Body temperature 99.1 [degF] Monica Dior RN Work Phone: [employer].; [employer]. Comment on above: Method: Tympanic 12-24-2013 14:46-0500 Body weight 69.85 kg Monica Dior RN Work Phone: [employer].; [employer]. 12-24-2013 14:46-0500 Diastolic blood pressure 70 mm[Hg] Monica Dior RN Work Phone: [employer].; [employer]. Comment on above: Patient Position: Sitting; Cuff Location : Left Arm; Cuff Size: Standard 12-24-2013 14:46-0500 Heart rate 73 /min Monica Dior RN Work Phone: [employer].; [employer]. Comment on above: Pattern: Regular 12-24-2013 14:46-0500 Inhaled oxygen concentration 20 % Monica Dior RN Work Phone: [employer].; [employer]. Comment on above: Room air 12-24-2013 14:46-0500 Inhaled oxygen concentration 21 % Monica Dior RN Work Phone: [employer].; [employer]. Comment on above: Room air 12-24-2013 14:46-0500 SaO2% (BldA) [Mass fraction] 98 % Monica Dior RN Work Phone: [facility], [place] [employer] [facility] 12-24-2013 14:46-0500 Systolic blood pressure 110 mm[Hg] Monica Dior RN Work Phone: [facility], [place] [employer]. Comment on above: Patient Position: Sitting; Cuff Location : Left Arm; Cuff Size: Standard 11-16-2013 17:15-0500 Body height 167.64 cm Jaimie Yoon EXPELLER WORKER [facility] [employer], [place]. 11-16-2013 17:15-0500 Body mass index (BMI) [Ratio] 24.53 kg/m2 GerriAllison Yoon [facility], [facility] [employer], [place]. 11-16-2013 17:15-0500 Body surface area Derived from formula 1.78 m2 Gerri Karrie [facility], [facility] [employer], [place]. 11-16-2013 17:15-0500 Body temperature 98.7 [degF] GerriAllison Yoon [facility] [employer]. Comment on above: Method: Tympanic 11-16-2013 17:15-0500 Body weight 68.95 kg Jaimie Yoon EXPELLER WORKER [facility] [employer], [employer] 11-16-2013 17:15-0500 Diastolic blood pressure 82 mm[Hg] Jaimie Yoon [facility] [employer]. Comment on above: Patient Position: Sitting; Cuff Location : Left Arm; Cuff Size: Large 11-16-2013 17:15-0500 Heart rate 76 /min Jaimie Yoon [facility] [employer]. Comment on above: Pattern: Regular 11-16-2013 17:15-0500 Inhaled oxygen concentration 20 % GerriAllison Yoon [facility] [employer]. Comment on above: Room air 11-16-2013 17:15-0500 Inhaled oxygen concentration 21 % Jaimie Yoon EXPELLER WORKER [employer].; [employer]. Comment on above: Room air 11-16-2013 17:15-0500 SaO2% (BldA) [Mass fraction] 97 % Jaimie Yoon EXPELLER WORKER [facility] [employer]. 11-16-2013 17:15-0500 Systolic blood pressure 121 mm[Hg] [facility] [employer]. Comment on above: Patient Position: Sitting; Cuff Location : Left Arm; Cuff Size: Large 10-19-2013 08:52-0500 Body height 167.64 cm Monica Osborn PA-C Work Phone: [employer].; [employer]. 10-19-2013 08:52-0500 Body mass index (BMI) [Ratio] 24.53 kg/m2 Monica Osborn PA-C Work Phone: [employer].; [employer]. 10-19-2013 08:52-0500 Body surface area Derived from formula 1.78 m2 Monica Osborn PA-C Work Phone: [employer] 10-19-2013 08:52-0500 Body temperature 98.6 [degF] Monica Osborn PA-C Work Phone: [employer]. Comment on above: Method: Tympanic 10-19-2013 08:52-0500 Body weight 68.95 kg Monica Osborn PA-C Work Phone: [employer]. 10-19-2013 08:52-0500 Diastolic blood pressure 79 mm[Hg] Monica Osborn PA-C Work Phone: [employer]. Comment on above: Patient Position: Sitting; Cuff Location : Left Arm; Cuff Size: Standard 10-19-2013 08:52-0500 Heart rate 75 /min Monica Osborn PA-C Work Phone: [employer]. Comment on above: Pattern: Regular 10-19-2013 08:52-0500 Systolic blood pressure 113 mm[Hg] Monica Osborn PA-C Work Phone: [employer]. Comment on above: Patient Position: Sitting; Cuff Location : Left Arm; Cuff Size: Standard 09-03-2013 16:09-0500 Body temperature 98.2 [degF] Monica Osborn PA-C Work Phone: [employer]; [employer]. Comment on above: Method: Tympanic 09-03-2013 16:09-0500 Body weight 69.85 kg Monica Osborn PA-C Work Phone: [employer]. 09-03-2013 16:09-0500 Diastolic blood pressure 71 mm[Hg] Monica Osborn PA-C Work Phone: [employer]. Comment on above: Patient Position: Sitting; Cuff Location : Left Arm; Cuff Size: Standard 09-03-2013 16:09-0500 Heart rate 77 /min Monica Osborn PA-C Work Phone: [employer]. Comment on above: Pattern: Regular 09-03-2013 16:09-0500 Systolic blood pressure 121 mm[Hg] Monica Osborn PA-C Work Phone: [employer]. Comment on above: Patient Position: Sitting; Cuff Location : Left Arm; Cuff Size: Standard 12-07-2012 09:07-0500 Body height 167.64 cm Monica Dior RN Work Phone: [employer]. 12-07-2012 09:07-0500 Body mass index (BMI) [Ratio] 24.69 kg/m2 Monica Dior RN Work Phone: [employer]. 12-07-2012 09:07-0500 Body surface area Derived from formula 1.79 m2 Monica Dior RN Work Phone: [employer].; [employer]. 12-07-2012 09:07-0500 Body temperature 98.7 [degF] Monica Dior RN Work Phone: [employer].; [employer]. Comment on above: Method: Tympanic 12-07-2012 09:07-0500 Body weight 69.4 kg Monica Dior RN Work Phone: [employer].; [employer]. 12-07-2012 09:07-0500 Diastolic blood pressure 69 mm[Hg] Monica Dior RN Work Phone: [employer].; [employer]. Comment on above: Patient Position: Sitting; Cuff Location : Left Arm; Cuff Size: Standard 12-07-2012 09:07-0500 Heart rate 79 /min Monica Dior RN Work Phone: [employer]; [employer]. Comment on above: Pattern: Regular 12-07-2012 09:07-0500 Systolic blood pressure 116 mm[Hg] Monica Dior RN Work Phone: [employer].; [employer]. Comment on above: Patient Position: Sitting; Cuff Location : Left Arm; Cuff Size: Standard 10-15-2012 13:47-0500 Body height 167.64 cm Monica Dior RN Work Phone: [employer].; [employer]. 10-15-2012 13:47-0500 Body mass index (BMI) [Ratio] 24.86 kg/m2 Monica Dior RN Work Phone: [employer].; [employer]. 10-15-2012 13:47-0500 Body surface area Derived from formula 1.79 m2 Monica Dior RN Work Phone: [employer]. 10-15-2012 13:47-0500 Body weight 69.85 kg Monica Dior RN Work Phone: [employer]. 10-15-2012 13:47-0500 Diastolic blood pressure 74 mm[Hg] Monica Dior RN Work Phone: [employer]. Comment on above: Patient Position: Sitting; Cuff Location : Right Arm; Cuff Size: Standard 10-15-2012 13:47-0500 Heart rate 84 /min Monica Dior RN Work Phone: [employer]; [employer]. Comment on above: Pattern: Regular 10-15-2012 13:47-0500 Systolic blood pressure 116 mm[Hg] Monica Dior RN Work Phone: [employer]; [employer]. Comment on above: Patient Position: Sitting; Cuff Location : Right Arm; Cuff Size: Standard 10-01-2012 09:43-0500 Body height 167.64 cm Monica Rasheeder PA-C Work Phone: [employer]; [employer]. 10-01-2012 09:43-0500 Body mass index (BMI) [Ratio] 24.21 kg/m2 Monica Osborn PA-C Work Phone: [employer]; [employer]. 10-01-2012 09:43-0500 Body surface area Derived from formula 1.77 m2 Monica Osborn PA-C Work Phone: [employer]; [employer]. 10-01-2012 09:43-0500 Body temperature 98.8 [degF] Monica Osborn PA-C Work Phone: [employer]; [employer]. Comment on above: Method: Tympanic 10-01-2012 09:43-0500 Body weight 68.04 kg Monica Osborn PA-C Work Phone: [employer] 10-01-2012 09:43-0500 Diastolic blood pressure 86 mm[Hg] Monica Osborn PA-C Work Phone: [employer]. Comment on above: Patient Position: Sitting; Cuff Location : Left Arm; Cuff Size: Standard 10-01-2012 09:43-0500 Heart rate 98 /min Monica BERMUDEZ-C Work Phone: [employer]. Comment on above: Pattern: Regular 10-01-2012 09:43-0500 Systolic blood pressure 118 mm[Hg] Monica Osborn PA-C Work Phone: [employer]; [employer]. Comment on above: Patient Position: Sitting; Cuff Location : Left Arm; Cuff Size: Standard 09-29-2012 08:51-0500 Body height 167.64 cm Elva Raudel EXPELLER WORKER Work Phone: [employer]; [employer]. 09-29-2012 08:51-0500 Body mass index (BMI) [Ratio] 24.05 kg/m2 [employer] Work Phone: [employer]; [employer]. 09-29-2012 08:51-0500 Body surface area Derived from formula 1.77 m2 [employer] Work Phone: [employer]; [employer]. 09-29-2012 08:51-0500 Body temperature 99 [degF] [employer] Work Phone: [employer]; [employer]. Comment on above: Method: Tympanic 09-29-2012 08:51-0500 Body weight 67.59 kg [employer] Work Phone: [employer]; [employer]. 09-29-2012 08:51-0500 Diastolic blood pressure 68 mm[Hg] Elva Brennany EXPELLER WORKER Work Phone: [employer]. Comment on above: Patient Position: Sitting; Cuff Location : Left Arm; Cuff Size: Standard 09-29-2012 08:51-0500 Heart rate 112 /min Elva Starks EXPELLER WORKER Work Phone: [employer]. Comment on above: Pattern: Regular 09-29-2012 08:51-0500 Systolic blood pressure 103 mm[Hg] Elva Brennany EXPELLER WORKER Work Phone: [employer]. Comment on above: Patient Position: Sitting; Cuff Location : Left Arm; Cuff Size: Standard 10-15-2011 08:07-0500 Body height 167.64 cm Monica Dior RN Work Phone: [employer]. 10-15-2011 08:07-0500 Body mass index (BMI) [Ratio] 24.86 kg/m2 Monica Dior RN Work Phone: [employer]. 10-15-2011 08:07-0500 Body surface area Derived from formula 1.79 m2 Monica Dior RN Work Phone: [employer]. 10-15-2011 08:07-0500 Body weight 69.85 kg Monica Dior RN Work Phone: [employer]. 10-15-2011 08:07-0500 Diastolic blood pressure 74 mm[Hg] Monica Dior RN Work Phone: [employer]. Comment on above: Patient Position: Sitting; Cuff Location : Left Arm; Cuff Size: Standard 10-15-2011 08:07-0500 Heart rate 82 /min Monica Dior RN Work Phone: [employer].; [employer]. Comment on above: Pattern: Regular 10-15-2011 08:07-0500 Systolic blood pressure 123 mm[Hg] Monica Dior RN Work Phone: [facility] [employer]. Comment on above: Patient Position: Sitting; Cuff Location : Left Arm; Cuff Size: Standard 10-12-2011 10:09-0500 Body weight 70.08 kg Cora Wheeler LPN [employer] [facility] [employer]. 10-12-2011 10:09-0500 Diastolic blood pressure 76 mm[Hg] Cora Wheeler [facility] [employer]. Comment on above: Patient Position: Sitting; Cuff Location : Left Arm; Cuff Size: Standard 10-12-2011 10:09-0500 Heart rate 89 /min Cora Wheeler LPN [employer] [facility] [employer]. Comment on above: Pattern: Regular 10-12-2011 10:09-0500 Systolic blood pressure 105 mm[Hg] Cora Wheeler LPN [employer]. Comment on above: Patient Position: Sitting; Cuff Location : Left Arm; Cuff Size: Standard 07-24-2011 08:11-0400 Body temperature 98.3 [degF] Monica Osborn PA-C Work Phone: [employer].; [employer]. 07-24-2011 08:11-0400 Body weight 67.13 kg Monica Osborn PA-C Work Phone: [employer].; [employer]. 07-24-2011 08:11-0400 Diastolic blood pressure 75 mm[Hg] Monica Osborn PA-C Work Phone: [employer]. Comment on above: Patient Position: Sitting; Cuff Location : Left Arm; Cuff Size: Standard 07-24-2011 08:11-0400 Heart rate 114 /min Monica Osborn PA-C Work Phone: [employer]; [employer]. Comment on above: Pattern: Regular 07-24-2011 08:11-0400 Systolic blood pressure 123 mm[Hg] Monica Osborn PA-C Work Phone: [employer]; [employer]. Comment on above: Patient Position: Sitting; Cuff Location : Left Arm; Cuff Size: Standard 05-06-2011 08:44-0400 Body temperature 97 [degF] Elva Starks EXPELLER WORKER Work Phone: [employer]; [employer]. Comment on above: Method: Tympanic 05-06-2011 08:44-0400 Body weight 64.86 kg Elva Starks EXPELLER WORKER Work Phone: [employer]; [employer]. 05-06-2011 08:44-0400 Diastolic blood pressure 69 mm[Hg] Elva Brennany EXPELLER WORKER Work Phone: [employer]; [employer]. Comment on above: Patient Position: Sitting; Cuff Location : Left Arm; Cuff Size: Standard 05-06-2011 08:44-0400 Heart rate 77 /min Elva Brennany EXPELLER WORKER Work Phone: [employer]; [employer]. Comment on above: Pattern: Regular 05-06-2011 08:44-0400 Systolic blood pressure 108 mm[Hg] Elva Brennany EXPELLER WORKER Work Phone: [employer]; [employer]. Comment on above: Patient Position: Sitting; Cuff Location : Left Arm; Cuff Size: Standard 03-21-2011 10:46-0400 Body height 167.64 cm Monica Dior RN Work Phone: [employer]; [employer]. 03-21-2011 10:46-0400 Body mass index (BMI) [Ratio] 23.08 kg/m2 Monica Dior RN Work Phone: [employer]; [employer]. 03-21-2011 10:46-0400 Body surface area Derived from formula 1.73 m2 Monica Dior RN Work Phone: [employer]. 03-21-2011 10:46-0400 Body weight 64.86 kg Monica Dior RN Work Phone: [employer]. 03-21-2011 10:46-0400 Diastolic blood pressure 60 mm[Hg] Monica Dior RN Work Phone: [employer]. Comment on above: Patient Position: Sitting; Cuff Location : Left Arm; Cuff Size: Standard 03-21-2011 10:46-0400 Heart rate 70 /min Monica Dior RN Work Phone: [employer]. Comment on above: Pattern: Regular 03-21-2011 10:46-0400 Systolic blood pressure 98 mm[Hg] Monica Dior RN Work Phone: [employer]. Comment on above: Patient Position: Sitting; Cuff Location : Left Arm; Cuff Size: Standard 03-19-2011 13:25-0400 Body height 167.64 cm Monica Dior RN Work Phone: [employer]. 03-19-2011 13:25-0400 Body mass index (BMI) [Ratio] 23.08 kg/m2 Monica Dior RN Work Phone: [employer]. 03-19-2011 13:25-0400 Body surface area Derived from formula 1.73 m2 Monica Dior RN Work Phone: [employer]. 03-19-2011 13:25-0400 Body weight 64.86 kg Monica Dior RN Work Phone: [employer]. 03-19-2011 13:25-0400 Diastolic blood pressure 70 mm[Hg] Monica Dior RN Work Phone: [employer]. Comment on above: Patient Position: Sitting; Cuff Location : Left Arm; Cuff Size: Standard 03-19-2011 13:25-0400 Heart rate 88 /min Monica Dior RN Work Phone: [employer]. Comment on above: Pattern: Regular 03-19-2011 13:25-0400 Systolic blood pressure 118 mm[Hg] Monica Dior RN Work Phone: [employer]. Comment on above: Patient Position: Sitting; Cuff Location : Left Arm; Cuff Size: Standard 03-15-2011 08:54-0400 Body height 167.64 cm Monica Dior RN Work Phone: [employer]. 03-15-2011 08:54-0400 Body mass index (BMI) [Ratio] 23.73 kg/m2 Monica Dior RN Work Phone: [employer]. 03-15-2011 08:54-0400 Body surface area Derived from formula 1.75 m2 Monica Dior RN Work Phone: [employer]. 03-15-2011 08:54-0400 Body weight 66.68 kg Monica Dior RN Work Phone: [employer]. 03-15-2011 08:54-0400 Diastolic blood pressure 75 mm[Hg] Monica Dior RN Work Phone: [employer]. Comment on above: Patient Position: Sitting; Cuff Location : Left Arm; Cuff Size: Standard 03-15-2011 08:54-0400 Heart rate 71 /min Monica Dior RN Work Phone: [employer]. Comment on above: Pattern: Regular 03-15-2011 08:54-0400 Systolic blood pressure 110 mm[Hg] Monica Dior RN Work Phone: [employer]. Comment on above: Patient Position: Sitting; Cuff Location : Left Arm; Cuff Size: Standard 02-22-2011 15:37-0400 Body height 167.64 cm Monica Dior RN Work Phone: [employer]. 02-22-2011 15:37-0400 Body mass index (BMI) [Ratio] 23.73 kg/m2 Monica Dior RN Work Phone: [employer]; [employer]. 02-22-2011 15:37-0400 Body surface area Derived from formula 1.75 m2 Monica Dior RN Work Phone: [employer]; [employer]. 02-22-2011 15:37-0400 Body weight 66.68 kg Monica Dior RN Work Phone: [employer]. 02-22-2011 15:37-0400 Diastolic blood pressure 68 mm[Hg] Monica Dior RN Work Phone: [employer]. Comment on above: Patient Position: Sitting; Cuff Location : Left Arm; Cuff Size: Standard 02-22-2011 15:37-0400 Heart rate 90 /min Monica Dior RN Work Phone: [employer]. Comment on above: Pattern: Regular 02-22-2011 15:37-0400 Systolic blood pressure 110 mm[Hg] Monica Dior RN Work Phone: [employer]. Comment on above: Patient Position: Sitting; Cuff Location : Left Arm; Cuff Size: Standard 12-10-2010 08:13-0500 Body temperature 97.8 [degF] Monica Osborn PA-C Work Phone: [employer]; [employer]. Comment on above: Method: Tympanic 12-10-2010 08:13-0500 Body weight 67.59 kg Monica Rasheeder PA-C Work Phone: [facility] [employer]. 12-10-2010 08:13-0500 Diastolic blood pressure 71 mm[Hg] Monica Osborn PA-C Work Phone: [employer].; [employer]. Comment on above: Patient Position: Sitting; Cuff Location : Left Arm; Cuff Size: Standard 12-10-2010 08:13-0500 Heart rate 95 /min Monica Rasheeder PA-C Work Phone: [employer]; [employer]. Comment on above: Pattern: Regular 12-10-2010 08:13-0500 Systolic blood pressure 114 mm[Hg] Monica Osborn PA-C Work Phone: [employer]. Comment on above: Patient Position: Sitting; Cuff Location : Left Arm; Cuff Size: Standard 10-11-2010 11:59-0500 Body height 167.64 cm Monica Dior RN Work Phone: [employer]. 10-11-2010 11:59-0500 Body mass index (BMI) [Ratio] 23.4 kg/m2 Monica Dior RN Work Phone: [employer].; [employer]. 10-11-2010 11:59-0500 Body surface area Derived from formula 1.74 m2 Monica Dior RN Work Phone: [employer]. 10-11-2010 11:59-0500 Body temperature 98 [degF] Monica Dior RN Work Phone: [employer].; [employer]. Comment on above: Method: Tympanic 10-11-2010 11:59-0500 Body weight 65.77 kg Monica Dior RN Work Phone: [employer] [facility] [employer]. 10-11-2010 11:59-0500 Diastolic blood pressure 73 mm[Hg] Monica Dior RN Work Phone: [facility] [employer]. Comment on above: Patient Position: Sitting; Cuff Location : Left Arm; Cuff Size: Standard 10-11-2010 11:59-0500 Heart rate 92 /min Monica Dior RN Work Phone: [employer]. Comment on above: Pattern: Regular 10-11-2010 11:59-0500 Systolic blood pressure 114 mm[Hg] Monica Dior RN Work Phone: [employer]. Comment on above: Patient Position: Sitting; Cuff Location : Left Arm; Cuff Size: Standard 09-25-2010 15:07-0500 Body height 167.64 cm Monica Dior RN Work Phone: [employer]. 09-25-2010 15:07-0500 Body mass index (BMI) [Ratio] 23.4 kg/m2 Monica Dior RN Work Phone: [employer]. 09-25-2010 15:07-0500 Body surface area Derived from formula 1.74 m2 Monica Dior RN Work Phone: [employer]. 09-25-2010 15:07-0500 Body weight 65.77 kg Monica Dior RN Work Phone: [employer]. 09-25-2010 15:07-0500 Diastolic blood pressure 72 mm[Hg] Monica Dior RN Work Phone: [employer]. Comment on above: Patient Position: Sitting; Cuff Location : Left Arm; Cuff Size: Standard 09-25-2010 15:07-0500 Heart rate 78 /min Monica Dior RN Work Phone: [employer]; [employer]. Comment on above: Pattern: Regular 09-25-2010 15:07-0500 Systolic blood pressure 110 mm[Hg] Monica Dior RN Work Phone: [employer]; [employer]. Comment on above: Patient Position: Sitting; Cuff Location : Left Arm; Cuff Size: Standard Encounters Encounter Date Encounter Type Care Provider Facility Start: 10-18-2025 ambulatory Monica BERMUDEZ Facil ity:[facility] Start: 06-17-2025 ambulatory MONICA Mendoza [facility] Start: 04-27-2025 Review Monica Rasheeder PA-C Work Phone: [employer]? Start: 04-27-2025 End: 04-27-2025 Patient encounter procedure Monica Rasheeder PA-C Work Phone: [employer]; [employer]. Start: 04-27-2025 End: 04-27-2025 Periodic preventive med est patient 40-64yrs Monica Rasheeder PA-C Work Phone: [employer]. Start: 04-11-2025 End: 04-11-2025 Orders Monica Osborn PA-C Work Phone: [employer] Start: 03-25-2025 End: 03-25-2025 Orders Monica Rasheeder PA-C Work Phone: [employer] Start: 10-30-2024 End: 10-30-2024 ambulatory SELF Facility:[id number] Start: 10-26-2024 End: 12-02-2024 ambulatory KRISTIN BRIGGS [facility] Start: 10-08-2024 End: 10-08-2024 ambulatory MONICA Mendoza [facility] Start: 10-08-2024 End: 10-08-2024 Office outpatient visit 25 minutes Monica Rasheeder PA-C [facility] Start: 10-08-2024 End: 10-08-2024 Preprocedural examination done Monica DAVISC Work Phone: [facility] [employer] Start: 08-16-2024 End: 08-18-2024 Orders Monica Osborn PA-C Work Phone: [employer] [facility] Start: 07-21-2024 End: 08-20-2024 ambulatory KRISTIN LALA CHESTERMARGIE Mendoza [facility] Start: 06-09-2024 End: 06-09-2024 Orders Monica Osborn PA-C [facility] Start: 05-14-2024 End: 05-14-2024 Periodic preventive med est patient 40-64yrs Monica BERMUDEZ-C Work Phone: [facility] Start: 05-14-2024 End: 05-14-2024 Patient encounter procedure Cora John RN [employer] [facility] [employer]. Start: 05-14-2024 Review Monica BERMUDEZ-C Work Phone: [facility] Start: 04-27-2024 End: 04-28-2024 Orders Monica Osborn PA-C Work Phone: [employer] Start: 04-05-2024 End: 04-05-2024 Orders Monica Osborn PA-C Work Phone: [employer] [facility] Start: 08-06-2023 Non-patient / Non-visit PA Gina BERMUDEZ Work Phone: [facility] Start: 08-06-2023 End: 08-06-2023 ambulatory PA Monica BERMUDEZ Work Phone: [facility] Work Phone: Start: 08-06-2023 End: 08-06-2023 Patient encounter procedure PA Monica Osborn PA Work Phone: [facility]Pulmonary Services/Neurology Work Phone: Start: 05-15-2023 End: 05-15-2023 Patient encounter procedure Monica Rasheeder PA-C Work Phone: [employer]. Start: 02-13-2023 End: 02-13-2023 Admission to same day surgery center [facility] Start: 02-13-2023 End: 02-13-2023 ambulatory [facility] Work Phone: Start: 01-14-2023 End: 01-14-2023 Patient encounter procedure [facility]-Laboratory, Medicine [place] [employer] Start: 12-25-2022 End: 12-25-2022 Orders Monica Rasheeder PA-C Work Phone: [employer]. Start: 12-19-2022 End: 12-19-2022 Orders Monica Rasheeder PA-C Work Phone: [employer]. Start: 04-04-2022 End: 04-04-2022 Patient encounter procedure Monica Rasheeder PA-C Work Phone: [employer]. Start: 03-28-2022 End: 03-28-2022 Office outpatient visit 15 minutes Monica Osborn PA-C Work Phone: [employer]. Start: 03-14-2022 End: 03-14-2022 Office outpatient visit 15 minutes Monica Osborn PA-C Work Phone: [employer]. Start: 09-19-2021 End: 09-19-2021 Patient encounter procedure Monica Osborn PA-C Work Phone: [employer]; [employer]. Start: 09-19-2021 End: 09-19-2021 Periodic preventive med est patient 40-64yrs Monica Osborn PA-C Work Phone: [employer]. Start: 09-17-2021 End: 09-17-2021 Orders Monica Osborn PA-C Work Phone: [employer]. Start: 08-13-2021 End: 08-13-2021 Nursing evaluation of patient and report Monica Osborn PA-C Work Phone: [employer]. Start: 08-13-2021 End: 08-13-2021 Orders Monica Osborn PA-C Work Phone: [employer]. Start: 05-15-2021 End: 05-15-2021 Office outpatient visit 15 minutes Monica Osborn PA-C Work Phone: [employer]. Start: 09-01-2020 End: 09-01-2020 Nursing evaluation of patient and report Monica Osborn PA-C Work Phone: [employer]. Start: 06-09-2020 End: 06-09-2020 Patient encounter procedure Monica Osborn PA-C Work Phone: [employer]. Start: 10-23-2019 End: 10-23-2019 Historical Summary Monica Osborn PA-C Work Phone: [employer] Start: 10-05-2019 End: 10-07-2019 Orders Monica Osborn PA-C Work Phone: [employer]. Start: 06-11-2019 End: 06-11-2019 Orders Monica Osborn PA-C Work Phone: [employer] Start: 05-05-2019 End: 05-05-2019 Historical Summary Monica Osborn PA-C Work Phone: [employer]. Start: 04-30-2019 End: 04-30-2019 Orders Monica Osborn PA-C Work Phone: [employer] Start: 04-21-2019 End: 04-21-2019 Historical Summary Monica Osborn PA-C Work Phone: [employer]. Start: 04-13-2019 End: 04-13-2019 Orders Monica Osborn PA-C Work Phone: [employer]. Start: 01-27-2019 End: 01-27-2019 Orders Monica Osborn PA-C Work Phone: [employer]. Start: 12-22-2018 End: 12-22-2018 Telephone follow-up Monica Osborn PA-C Work Phone: [employer]. Start: 11-26-2018 End: 11-26-2018 Orders Monica Osborn PA-C Work Phone: [employer]. Start: 11-20-2018 End: 11-20-2018 Patient encounter procedure Monica Osborn PA-C Work Phone: [employer]. Start: 11-12-2018 End: 11-12-2018 Office outpatient visit 5 minutes Monica Osborn PA-C Work Phone: [employer]. Start: 11-06-2018 End: 11-06-2018 Office outpatient visit 15 minutes Monica Osborn PA-C Work Phone: [employer]. Start: 10-23-2018 End: 10-25-2018 Patient encounter procedure Monica Osborn PA-C Work Phone: [employer]. Start: 09-28-2018 End: 09-28-2018 Medication Monica Osborn PA-C Work Phone: [employer]. Start: 09-15-2018 End: 09-15-2018 Office outpatient visit 15 minutes Monica Osborn PA-C Work Phone: [employer]. Start: 08-25-2018 End: 08-25-2018 Office outpatient visit 25 minutes Monica Osborn PA-C Work Phone: [employer]. Start: 12-11-2017 End: 12-11-2017 Patient encounter status Monica Hart Osborn PA-C Work Phone: [employer]. Start: 12-11-2017 End: 12-11-2017 Periodic preventive med est patient 40-64yrs Monica Osborn PA-C Work Phone: [employer]. Start: 12-02-2017 End: 12-02-2017 Office outpatient visit 15 minutes Monica Osborn PA-C Work Phone: [employer]. Start: 12-09-2016 End: 12-10-2016 Medication Monica Osborn PA-C Work Phone: [employer]. Start: 11-15-2016 End: 11-15-2016 Patient encounter procedure Monica Osborn PA-C Work Phone: [employer]. Start: 11-15-2016 End: 11-15-2016 Patient encounter status Monica Dior RN Work Phone: [employer]. Start: 10-11-2016 End: 10-11-2016 Office outpatient visit 15 minutes Monica Osborn PA-C Work Phone: [employer]. Start: 09-13-2016 End: 09-13-2016 Office outpatient visit 15 minutes Monica Osborn PA-C Work Phone: [employer]. Start: 09-10-2016 End: 09-10-2016 Patient encounter procedure Monica Osborn PA-C Work Phone: [employer]. Start: 09-07-2016 End: 09-07-2016 Patient encounter procedure Monica Osborn PA-C Work Phone: [employer]. Start: 02-01-2016 End: 02-01-2016 Patient encounter procedure Monica Osborn PA-C Work Phone: [employer]. Start: 11-06-2015 End: 11-06-2015 Patient encounter status Monica Osborn PA-C Work Phone: [employer]. Start: 11-06-2015 End: 11-06-2015 Periodic preventive med est patient 18-39 yrs Monica BERMUDEZ-C Work Phone: [employer]. Start: 11-03-2015 End: 11-03-2015 Historical Summary Monica BERMUDEZ-C Work Phone: [employer]. Start: 10-16-2015 End: 10-16-2015 Orders Monica BERMUDEZ-C Work Phone: [employer]. Start: 08-25-2015 End: 08-25-2015 Office outpatient visit 15 minutes Monica Osborn PA-C Work Phone: [employer] Start: 11-04-2014 End: 11-04-2014 Manual pelvic examination Monica Dior RN Work Phone: [employer]; [employer]. Start: 11-04-2014 End: 11-04-2014 Periodic preventive med est patient 18-39 yrs Monica BERMUDEZ-C Work Phone: [employer] Start: 07-21-2014 End: 07-21-2014 Nursing evaluation of patient and report Monica BERMUDEZ-C Work Phone: [employer] Start: 02-28-2014 End: 02-28-2014 Patient encounter procedure Monica Rasheeder PA-C Work Phone: [employer]. Start: 12-24-2013 End: 12-24-2013 Patient encounter procedure Monica Osborn PA-C Work Phone: [employer] Start: 11-16-2013 End: 11-16-2013 Patient encounter procedure Monica Osborn PA-C Work Phone: [employer] Start: 10-19-2013 End: 10-19-2013 Manual pelvic examination Kacy Kinsey MD Work Phone: [employer]; [employer] Start: 10-19-2013 End: 10-19-2013 Patient encounter procedure Monica Rasheeder PA-C [facility] Start: 09-03-2013 End: 09-03-2013 Patient encounter procedure Monicajuan a Rasheeder PA-C Work Phone: [employer] [facility] [employer]. Start: 08-09-2013 End: 08-09-2013 Historical Summary Monica Osborn PA-C Work Phone: [employer]. Start: 12-07-2012 End: 12-07-2012 Patient encounter procedure Monica Rasheeder PA-C Work Phone: [employer] [facility] [employer]. Start: 12-05-2012 End: 12-05-2012 Medication Monica Rasheeder PA-C Work Phone: [employer] Start: 10-15-2012 End: 10-15-2012 Manual pelvic examination Monica Dior RN Work Phone: [facility] [employer]; [employer]. Start: 10-15-2012 End: 10-15-2012 Patient encounter procedure Monica Rasheeder PA-C Work Phone: [employer]. Start: 10-07-2012 End: 10-07-2012 Medication Monica Osborn PA-C Work Phone: [employer] Start: 10-01-2012 End: 10-01-2012 Patient encounter procedure Monica Rasheeder PA-C Work Phone: [employer] Start: 09-29-2012 End: 09-29-2012 Patient encounter procedure Monica Osborn PA-C Work Phone: [employer]. Start: 10-15-2011 End: 10-15-2011 Patient encounter procedure Monica Osborn PA-C Work Phone: [employer] Start: 10-15-2011 End: 10-15-2011 Routine gynecological examination Kacy Kinsey MD Work Phone: [facility] [employer]. Start: 10-12-2011 End: 10-12-2011 Patient encounter procedure Monica Osborn PA-C Work Phone: [employer]. Start: 07-24-2011 End: 07-24-2011 Patient encounter procedure Monica Osborn PA-C Work Phone: [employer]. Start: 05-06-2011 End: 05-06-2011 Patient encounter procedure Monica Osborn PA-C Work Phone: [employer]. Start: 04-01-2011 End: 04-01-2011 Patient encounter procedure Monica Osborn PA-C Work Phone: [employer]. Start: 03-21-2011 End: 03-21-2011 Patient encounter procedure Monica Osborn PA-C Work Phone: [employer]. Start: 03-19-2011 End: 03-19-2011 Patient encounter procedure Monica Osborn PA-C Work Phone: [employer]. Start: 03-16-2011 End: 03-16-2011 Medication Monica BERMUDEZ-C Work Phone: [employer]. Start: 03-15-2011 End: 03-15-2011 Patient encounter procedure Monica Osborn PA-C Work Phone: [employer] Start: 02-22-2011 End: 02-22-2011 Patient encounter procedure Monica Osborn PA-C Work Phone: [employer] Start: 12-10-2010 End: 12-10-2010 Patient encounter procedure Monica Osborn PA-C Work Phone: [employer]. Start: 10-11-2010 End: 10-11-2010 Patient encounter procedure Monica Osborn PA-C Work Phone: [employer] Start: 10-11-2010 End: 10-11-2010 Routine gynecological examination Monica Osborn PA-C Work Phone: [facility]?; [facility] [employer] [facility] Start: 09-25-2010 End: 09-25-2010 Patient encounter procedure Monica Osborn PA-C Work Phone: [facility] Start: 09-25-2010 End: 09-25-2010 Routine gynecological examination Monica Osborn PA-C Work Phone: [facility]; [facility] [facility] Start: 09-24-2010 End: 09-24-2010 Historical Summary Monica Osborn PA-C Work Phone: [facility] [facility] Start: 08-28-2010 End: 08-28-2010 Medication Monica Osborn PA-C Work Phone: [facility] Start: 08-28-2010 End: 08-28-2010 Historical Summary Monica Osborn PA-C Work Phone: [facility] Patient encounter procedure Johnathan Johnson [facility] [place]; [facility] Patient encounter procedure Mala Nichole [facility] [employer] [facility] Patient encounter status Kacy Kinsey MD Work Phone: [facility]; [facility] Preprocedural examin ation done Tia Burciaga [facility]; [facility] [facility] Procedures Date Procedure Procedure Detail Performing Clinician Start: 04-27-2025 End: 04-26-2025 Depression screening Monica Alves Work Phone: Start: 04-27-2025 End: 04-26-2025 Pos clin depres scrn f/u doc Monica Osborn PA-C Work Phone: Start: 04-27-2025 End: 04-26-2025 Scr dep neg, no plan reqd Monica Osborn PA-C Work Phone: Start: 04-11-2025 End: 04-11-2025 Lab findings surveillance Tia Burciaga Comment on above: Results:. cmp 94 Start: 04-11-2025 End: 04-11-2025 Lipid panel Tia Burciaga Comment on above: Normal. TC 167, HDL 67, LDL 84, TRIG 75 Start: 04-11-2025 End: 04-11-2025 Thyrotropin [Units/volume] in Serum or Plasma Tia Burciaga Comment on above: 1.14 Start: 10-08-2024 End: 10-14-2024 Chest x-ray Monica Hart Osborn PA- C Work Phone: Start: 10-08-2024 End: 10-15-2024 Ecg routine ecg w/least 12 lds w/i&r Monica Hart Osborn PA-C Work Phone: Start: 09-19-2024 End: 09-19-2024 right knee surgery Tia Burciaga Comment on above: Dr. Garcia Start: 05-14-2024 End: 05-14-2024 Depression screening Monica Hart Osborn PA -C Work Phone: Start: 05-14-2024 End: 05-14-2024 Scr dep neg, no plan reqd Monica Hart Osborn PA-C Work Phone: Start: 05-14-2024 End: 06-09-2024 Screening digital breast tomosynthesis bi Monica Hart Osborn PA-C Work Phone: Start: 05-14-2024 End: 06-09-2024 Us soft tissue head & neck real time imge docm Monica Hart Osborn PA-C Work Phone: Start: 04-27-2024 End: 04-27-2024 Lab findings surveillance Cora John RN Comment on above: Results:. 83 Start: 04-27-2024 End: 04-27-2024 Lipid panel Cora John RN Comment on above: Normal. TC 155, HDL 70, LDL 74, TR 37 Start: 04-27-2024 End: 04-27-2024 Thyrotropin [Units/volume] in Serum or Plasma Cora John RN Comment on above: 1.70 Start: 05-15-2023 End: 08-06-2023 Ndl emg 1 xtr w/wo related paraspinal areas Monica aHrt Osborn PA-C Work Phone: Comment on above: Right leg - NCT AND EMG Start: 02-13-2023 Laparoscopic, Salpingo-oopherectomy (Bilateral) Start: 01-18-2023 End: 01-18-2023 Bilateral oophorectomy Monica Hart Osborn PA-C Work Phone: Start: 12-25-2022 End: 01-02-2023 Us pelvic nonobstetric real-time image complete Monica Hart Osborn PA-C Work Phone: Start: 12-19-2022 End: 12-25-2022 Ct abdomen & pelvis w/o contrst 1/> body re Monica Hart Osborn PA-C Work Phone: Start: 08-20-2022 End: 08-20-2022 Arthroscopy of knee Mnoica Hailey Osborn PA- C Work Phone: Comment on above: Right. Meniscus repa ir Start: 03-28-2022 End: 03-29-2022 Radiologic exam knee complete 4/more views Monica Hart Osborn PA-C Work Phone: Start: 03-14-2022 End: 03-14-2022 Dup-scan lxtr art/artl bpgs uni/lmtd study Kat BERMUDEZ-C Work Phone: Start: 09-19-2021 End: 09-19-2021 Depression screening Monica Hart Osborn PA -C Work Phone: Start: 09-19-2021 End: 09-19-2021 Scr dep neg, no plan reqd Monica Hart Osborn PA-C Work Phone: Start: 09-17-2021 End: 09-17-2021 Lab findings surveillance Galina Romero LPN Comment on above: Results:. 86 in CMP Start: 09-17-2021 End: 09-17-2021 Lipid panel Galina Romero LPN Comment on above: Normal. Start: 08-13-2021 End: 08-13-2021 Flu immunize order/admin Monica Hart Parag benavides PA-C Work Phone: Start: 08-13-2021 End: 10-08-2021 Screening mammography bi 2-view breast inc cad Monicajuan a Osborn PA-C Work Phone: Start: 05-15-2021 End: 05-16-2021 Radiologic exam knee complete 4/more views Tone Kauffman MD Work Phone: Start: 10-19-2019 End: 10-19-2019 Ultrasound, Abdomen Cora Wheeler LPN Comment on above: Within Normal Limits . gall stones noted Start: 10-05-2019 End: 10-23-2019 Us abdominal real time w/image limited Cliff Dixon MD Work Phone: Start: 06-11-2019 End: 06-11-2019 Dup-scan lxtr art/artl bpgs uni/lmtd study Monica Osborn PA-C Work Phone: Start: 05-04-2019 End: 05-04-2019 Screening mammography Galina Romero EXPELLER WORKER Comment on above: Within Normal Limits . Start: 04-30-2019 End: 05-05-2019 Screening mammography bi 2-view breast inc cad Cliff Dixon MD Work Phone: Start: 04-13-2019 End: 04-21-2019 Dup-scan lxtr art/artl bpgs uni/lmtd study Cliff Dixon MD Work Phone: Start: 11-20-2018 End: 11-23-2018 Dup-scan lxtr art/artl bpgs uni/lmtd study Cliff Dixon MD Work Phone: Start: 11-12-2018 End: 11-12-2018 Education&training self-mgmt nonphys 1 pt FLOAT NURSE Start: 12-11-2017 End: 12-11-2017 Body mass index documented Monicajuan a Osborn PA-C Work Phone: Start: 12-11-2017 End: 12-11-2017 Most recent diastolic blood pressure < 80 mm hg Monica Hart Osborn PA-C Work Phone: Start: 12-11-2017 End: 12-11-2017 Most recent systolic blood pressure <130 mm hg Monica Hart Osborn PA-C Work Phone: Start: 12-02-2017 End: 12-02-2017 Body mass index documented Monica Hart Osborn PA-C Work Phone: Start: 11-15-2016 End: 11-15-2016 Microscopic examination of cervical Papanicolaou smear Galina Romero LPN Comment on above: Normal. 5 yr Start: 07-21-2014 End: 07-21-2014 Removal sutures under anesthesia same surgeon Kacy Kinsey MD Work Phone: Start: 03-15-2011 End: 03-15-2011 Destruction benign lesions up to 14 Kacy Kinsey MD Work Phone: Start: 02-22-2011 End: 02-22-2011 Destruction benign lesions up to 14 Kacy Kinsey MD Work Phone: Adenoid excision Monica J P almer PA-C Work Phone: Adenoid excision Mala Davison [facility] EXPELLER WORKER Adenoid excision Monica J P almer PA-C Work Phone: Adenoid excision Tia Burciaga section Monica J P almer PA-C Work Phone: Comment on above: 2008 section Mala Davison [facility] EXPELLER WORKER Comment on above: 2008 section Monica J P almer PA-C Work Phone: Comment on above: 2008 section Tia Burciaga Comment on above: 2008 History of operative procedure on knee H/O arthroscopic knee surgery Monica Hart Osborn PA-C Work Phone: History of operative procedure on knee H/O arthroscopic knee surgery Monica Osborn PA-C Work Phone: History of operative procedure on knee H/O arthroscopic knee surgery Cora John RN History of operative procedure on knee H/O arthroscopic knee surgery Jil Estrada LPN History of operative procedure on knee H/O arthroscopic knee surgery Tia Burciaga Hysterectomy Monica Hart Palme r PA-C Work Phone: Comment on above: 2019 Hysterectomy Mala Nichole MARCELLO Comment on above: 2019 Hysterectomy Monica Hart Palmterry r PA-C Work Phone: Comment on above: 2019 Hysterectomy Tia Anna Delgadoerick Comment on above: 2019 Tonsillectomy Monica Hart Palm er PA-C Work Phone: Tonsillectomy Mala Nichole MARCELLO Tonsillectomy Monica Hart Palm er PA-C Work Phone: Tonsillectomy Tia Anna hughes Plan of Treatment Date Care Activity Detail Author Start: 04-27-2025 Screening digital breast tomosynthesis bi Mammogram 3D (tomosynthesis), bilateral ([id number]) Start: 27-Apr-2025 Intent [employer]. Start: 04-27-2025 Patient encounter procedure Medical; PHYSICAL - AWV, needs [employer], CRC [employer]. Start: 27-Apr-2025 09:10-04:00 REED Osborn Appointment Request [employer]. Start: 04-13-2025 Assay of thyroid stimulating hormone tsh TSH W/ REFL FREE T4 ([id number]) ([id number]) Start: 13-Apr-2025 10:33-04:00 Request [employer].; [employer]. Start: 04-13-2025 Lipid panel LIPID PANEL (16940) Start: 13-Apr-2025 10:33-04:00 Request [employer].; [employer]. Start: 04-13-2025 Comprehensive metabolic panel CMP w/ GFR* ([id number]) Start: 13-Apr-2025 10:33-04:00 Request [employer].; [employer] Start: 04-13-2025 Nursing evaluation of patient and report Medical; Nurse visit - AWV. fasting labs MJP [employer]. Start: 13-Apr-2025 09:40-04:00 NURSE, FLOAT Appointment Request [employer]. Start: 04-11-2025 Assay of thyroid stimulating hormone tsh TSH W/ REFL FREE T4 ([id number]) ([id number]) Start: 11-Apr-2025 08:28-04:00 Request [employer]; [employer]. Start: 04-11-2025 Lipid panel LIPID PANEL (41831) Start: 11-Apr-2025 08:28-04:00 Request [employer].; [employer]. Start: 04-11-2025 Comprehensive metabolic panel CMP w/ GFR* (44014) Start: 11-Apr-2025 08:28-04:00 Request [employer]; [employer]. Start: 10-08-2024 Chest x-ray CHEST X-RAY, PA AND LATERAL (00640) Start: 08-Oct-2024 Intent [employer]; [employer]. Start: 10-08-2024 Ecg routine ecg w/least 12 lds w/i&r ELECTROCARDIOGRAM WITH INTERPRETATION (66595) Start: 08-Oct-2024 Intent [employer]; [employer]. Start: 10-08-2024 Comprehensive metabolic panel CMP w/ GFR* ([id number]) Start: 08-Oct-2024 13:39-05:00 Request [employer].; [employer]. Start: 10-08-2024 Blood count complete auto&auto difrntl wbc CBC, PLATELETS & AUT DIFF (F) (00487) Start: 08-Oct-2024 13:39-05:00 Request [employer]; [employer]. Start: 08-16-2024 Nursing evaluation of patient and report Medical; Nurse visit - 3 mo f/u nonfasting labs-- mjp [employer]. Start: 16-Aug-2024 15:40-04:00 NURSE, FLOAT Appointment Request [employer]. Start: 07-27-2024 Comprehensive metabolic panel CMP w/ GFR* (54473) Start: 27-Jul-2024 Request [employer]; [employer]. Start: 07-20-2024 Basic metabolic panel calcium total BMP w/ GFR (F) (62924) Start: 20-Jul-2024 Request [employer].; [employer]. Start: 05-14-2024 Culture bacterial quanttative colony count urine URINE SONNY CULTURE-ROEL COL COUNT Start: 14-May-2024 14:42-04:00 Request [employer].; [employer]. Start: 05-14-2024 Urnls dip stick/tablet reagent auto microscopy URINALYSIS, AUTOMATED W/ MICRO (24722) Start: 14-May-2024 14:42-04:00 Request [employer].; [employer]. Start: 05-14-2024 Urnls dip stick/tablet rgnt auto w/o microscopy Urinalysis, Automated w/o micro (in house)* (52869) Start: 14-May-2024 14:28-04:00 Request [employer].; [employer]. Start: 05-14-2024 Patient encounter procedure Medical; PHYSICAL - AWV [employer]. Start: 14-May-2024 14:00-04:00 REED Osborn Appointment Request [employer]. Start: 05-14-2024 Screening digital breast tomosynthesis bi Mammogram 3D (tomosynthesis), bilateral ([id number]) Start: 14-May-2024 Intent [employer].; [employer]. Start: 05-14-2024 Us soft tissue head & neck real time [facility] Thyroid Ultrasound (35034) Start: 14-May-2024 Intent [employer]. Start: 05-06-2024 Assay of thyroid stimulating hormone tsh TSH (THYROID STIMULATING HORMONE) (20524) Start: 06-May-2024 Request [employer].; [employer]. Start: 05-06-2024 Blood count complete auto&auto difrntl wbc CBC, PLATELETS & AUT DIFF (F) ([id number]) Start: 06-May-2024 Request [employer].; [employer]. Start: 05-06-2024 Comprehensive metabolic panel CMP w/ GFR* (22691) Start: 06-May-2024 [facility] [employer]. Start: 05-06-2024 Lipid panel LIPID PANEL (14851) Start: 06-May-2024 Request [facility] [employer]. Start: 05-06-2024 Nursing evaluation of patient and report Medical; Nurse visit - fasting labs MJP [facility]. Start: 06-May-2024 08:20-04:00 NURSE, FLOAT Appointment Request [facility] Start: 04-05-2024 Screening digital breast tomosynthesis bi Mammogram 3D (tomosynthesis), bilateral ([id number]) Start: 05-Apr-2024 Intent [employer].; [employer]. Start: 02-13-2023 Ambulation without limitation [facility] Start: 02-13-2023 Medication education [facility] Start: 02-13-2023 Patient discharge [facility] Start: 02-13-2023 Planned voiding [facility] Start: 02-13-2023 Taking patient vital signs [facility] Start: 02-13-2023 Vital signs measurements [facility] Start: 02-13-2023 [facility] Start: 11-16-2013 Patient Education Sinusitis *: sinus infection Indication: SINUSITIS, ACUTE NEC Start: 16-Nov-2013 Instruction Type: Patient Education [facility]; [employer]. Patient referral [facility] Work Phone: Immunizations Immunization Date Immunization Notes Care Provider Rukhsana tony 04-27-2025 tetanus toxoid, redu rush diphtheria toxoid, and acellular pertussis vaccine, adsorbed Monica Osborn PA-Bronson Work Phone: [employer]; [employer]. Comment on above: Site: Right DeltoidV IS Given: * tdap (11/19/24) 08-13-2021 influenza, injectabl e, quadrivalent, contains preservative Monica Osborn PA-C Work Phone: [employer]; [employer]. Comment on above: Site: Left DeltoidVI S Given: * Influenza - Inactivated (06/03/19) 09-01-2020 influenza, injectabl e, quadrivalent, contains preservative Monica Osborn PA-C Work Phone: [employer]?; [employer]. Comment on above: Site: Left DeltoidVI S Given: * Influenza - Inactivated (06/03/19) 08-18-2018 influenza virus vaccine, unspecified formulation Monica Osborn PA-C Work Phone: [employer]; [facility] 08-12-2018 Influenza virus vaccine [facility] 07-20-2016 influenza, seasonal, injectable Monica Osborn PA-C Work Phone: [employer]?; [employer]. Comment on above: VIS Given: * Inactiv ated Influenza (05/26/2015)Received at work 07-20-2015 influenza, seasonal, injectable Monica Osborn PA-C Work Phone: [employer]; [employer]. Comment on above: at work by [facility] 07-20-2014 influenza, seasonal, injectable Monica Osborn PA-C Work Phone: [employer]; [employer]. Comment on above: at work 07-20-2013 influenza, seasonal, injectable Monica Osborn PA-C Work Phone: [employer]; [employer]. Comment on above: at work 07-20-2012 influenza, seasonal, injectable Monica Osborn PA-C Work Phone: [employer]; [employer]. Comment on above: at work 08-17-2011 tetanus toxoid, redu rush diphtheria toxoid, and acellular pertussis vaccine, adsorbed Monica Osborn PA-C Work Phone: [employer]; [employer]. 07-20-2011 influenza, seasonal, injectable Monica Osborn PA-C Work Phone: [facility] [employer]. Comment on above: per HD 10-20-2009 influenza, seasonal, injectable Monica Osborn PA-C Work Phone: [facility] [employer]. Comment on above: per pt 08-10-2009 novel [id number], all formulations Monica Osborn PA-C Work Phone: [facility] [employer]. 07-27-2009 influenza, seasonal, injectable Monica Osborn PA-C Work Phone: [employer].; [employer]. 08-09-2005 hepatitis A vaccine, adult dosage Monica Osborn PA-C Work Phone: [employer].; [employer]. 02-08-2005 hepatitis A vaccine, adult dosage Monica Osborn PA-C Work Phone: [employer].; [employer]. 02-08-2005 tetanus and diphther ia toxoids, adsorbed, preservative free, for adult use (2 Lf of tetanus toxoid and 2 Lf of diphtheria toxoid) Monica Osborn PA-C Work Phone: [facility] [facility] [employer]. Payers Date Payer Category Payer Self-pay [id number] 2024 Unknown [id number] 1975 Unknown [id number] [id number] 1975 Unknown [id number] 1976 Unknown [id number] [id number] [id number] 1975 Unknown [id number] Unknown [employer] [id number] Unknown [employer] Unknown [id number] [id number] [id number] Social History Date Type Detail Facility Start: 02-06-2023 Tobacco smoking stat [facility] Unknown if ever smoked [facility] Start: 1975 Sex Assigned At Female [facility] Caffeine Use Caffeine Use [employer]; [facility] Tobacco Use: Tobacco Use: ; N ever smoker. [employer]; [facility] [facility] Never smoked tobacco [employer] [facility]; [facility] [facility] Work Phone: NEGATED: Highlighted row [facility] NEGATED: Highlighted row No Social History Information Available No Social History Information Available [employer]; [employer] Work Phone: Medical Equipment Procedure Code Equipment Code Equipment Origin al Text Equipment Identifier Dates Abdominal hysterectomy with conservation of ovaries SEALANT,FLOSEAL HEMOSTATIC 5ML FDA Start: 12-14-2018 Abdominal hysterectomy with conservation of ovaries SEALANT,FLOSEAL HEMOSTATIC 5ML FDA Start: 12-14-2018 Goals Date Patient Goal Desired Activity /State Mental Status Date Assessment Result Facility 02-13-2023 Cognitive function Level Of Cons ciousness Follows Commands;Drowsy;Restless [facility] Work Phone: 02-13-2023 Cognitive function Patient Orien tation Person;Place;Time [facility] Work Phone: Progress note 10-30-2024 Note Date & Type Note Facility 10-30-2024 Note HNO ID: [id number] Author: TRIXIE MORALES APRN.LAB SUPPORT TECHNICIAN Service: ? Author Type: Nurse Practitioner Type: Progress Notes Filed: 10/30/2024 11:58 Note Text: October 30, 2024 Subjective Chief Complaint: Sore Throat (Started last night. /OTC:Tylenol this morning. ), Headache, Fever (Chills), and Ear Problem (L) HPI: Carolina MCCARTHY is a 49 year old female who presents today for last night starting with sore throat, headache, fever with chills and left ear pain. Does have a history of strep throat but has had her tonsils removed. PAST MEDICAL HISTORY Diagnosis Date Cardiac dysrhythmia, unspecified Esophageal reflux PAST SURGICAL HISTORY Procedure Laterality Date ESOPHAGOGASTRODUODENOSCOPY TRANSORAL DIAGNOSTIC 01/26/2008 EGD HYSTERECTOMY HX KNEE SURGERY HX TONSILLECTOMY AND ADENOIDECTOMY AGE 13/> FAMILY HISTORY Problem Relation Age of Onset Asthma Brother Cancer Paternal Grandfather Heart Brother Heart Mother other (MULTIPLE SCLEROSIS [Other]) Maternal Grandfather Social History Tobacco Use Smoking status: Never Smokeless tobacco: Never Vaping Use Vaping status: Never Used Substance Use Topics Alcohol use: No Drug use: No ALLERGIES Allergen Reactions Penicillins Rash, Itching Sulfa (Sulfonamide * Rash There is no immunization history on file for this patient. Current Medications: aspirin, enteric coated (ASPIRIN, ENTERIC COATED) 81 mg EC tablet 1 tab(s) orally once a day for 30 day(s) famotidine (PEPCID) 20 mg tablet 1 tab(s) orally once a day (at bedtime) ibuprofen (MOTRIN) 800 mg tablet Vit B Comp and C-Vit E-FA-Jaylin-Zn 0.4 mg tab 1 tab(s) orally once a day for 30 day(s) FOLIC ACID 800 MCG TAB Take one(1) tablet daily. azithromycin (ZITHROMAX Z-ANTHONY) 250 mg tablet 2 tablets by mouth first day then 1 tablet the next 4 days Review of Systems Constitutional: Positive for chills and fever. HENT: Positive for sore throat. Negative for congestion (sinus drainage). Eyes: Negative. Respiratory: Negative. Cardiovascular: Negative. Gastrointestinal: Negative. Genitourinary: Negative. Musculoskeletal: Negative. Skin: Negative. Neurological: Positive for headaches. Objective BP 114/75 Pulse 82 Temp 99.1 Resp 18 Wt 154 lb 1.6 oz (69.9kg) SpO2 99% Physical Exam Vitals and nursing note reviewed. Constitutional: Appearance: Normal appearance. HENT: Head: Normocephalic and atraumatic. Right Ear: Tympanic membrane, ear canal and external ear normal. No middle ear effusion. There is no impacted cerumen. Tympanic membrane is not perforated or erythematous. Left Ear: Tympanic membrane, ear canal and external ear normal. No middle ear effusion. There is no impacted cerumen. Tympanic membrane is not perforated or erythematous. Nose: Nose normal. Mouth/Throat: Lips: [place]. No lesions. Mouth: Mucous membranes are moist. Pharynx: Oropharynx is clear. Uvula midline. Posterior oropharyngeal erythema present. Eyes: Extraocular Movements: Extraocular movements intact. Conjunctiva/sclera: Conjunctivae normal. Pupils: Pupils are equal, round, and reactive to light. Cardiovascular: Rate and Rhythm: Normal rate and regular rhythm. Pulses: Normal pulses. Heart sounds: Normal heart sounds. Pulmonary: Effort: Pulmonary effort is normal. Breath sounds: Normal breath sounds and air entry. Abdominal: General: Bowel sounds are normal. Palpations: Abdomen is soft. Musculoskeletal: General: Normal range of motion. Cervical back: Normal range of motion and neck supple. Skin: General: Skin is warm and dry. Neurological: General: No focal deficit present. Mental Status: She is alert and oriented to person, place, and time. Psychiatric: Mood and Affect: Mood normal. Medical Decision Making: Problems: Low: Acute, uncomplicated illness or injury Data: Unique source(s) for external note(s) reviewed: 1 Unique test result(s) reviewed: 1 Unique test(s) ordered: 1 Risk: Moderate: Drug management and Moderate risk from testing/treatment Medical Decision Making Level: 4 - Moderate ASSESSMENT/PLAN: 1. Sore throat - ICD9: 462, ICD10: J02.9 (primary diagnosis) - suspect strep - Group A strep molecular testing positive - Discussed supportive care treatment with fluids, rest and analgesia. - The patient may also use warm salt water gargles, throat lozenges and/or OTC throat spray as needed. - Contagious dz precautions discussed- including considered contagious until on antibiotics for 24 hours - The patient should follow up in 3-5 days if symptoms persist or worsen - Call back if drooling, increased temperature, symptoms of dehydration and/or still sick in one week - STREP A MOLECULAR (POC) 2. Strep pharyngitis - ICD9: 034.0, ICD10: J02.0 - suspect strep - Group A strep molecular testing positive - Discussed supportive care treatment with fluids, rest and analgesia. - The patient may also use OTC (more content not included)... [facility] Progress note 10-30-2024 Note Date & Type Note Facility 10-30-2024 Note HNO ID: [id number] Author: EMMA RIOS LPN Service: ? Author Type: LICENSED NURSE Type: Progress Notes Filed: 10/30/2024 11:58 Note Text: Strep swab collected. Emma Rios LPN [facility] Procedure note 08-06-2023 Note Date & Type Note Facility 08-06-2023 Procedure note [facility] Discharge summary 02-13-2023 Note Date & Type Note Facility 02-13-2023 Discharge summary Note Date/Time February 13, 2023 1:19pm [facility] Medical Records Department [address] [place] [id number] Instructions for Home/Discharge Instructions 02/13/23 1319 MR#: [id number] Acct: [id number] Name: CAROLINA MCCARTHY Rep #:[id number] : 1975 47 From: Lina benavides DO PCP: Jazmyn Physician,Riya Primary Status :[facility] [place] Instructions Diet Discharge Diet: No restrictions Activity Discharge Activity: Return to Normal Activity and May Shower May resume sexual activity in: 2 weeks Weight Bearing Status: Weight bearing as tolerated Lifting Restrictions: No greater than 15 pounds Dressing / Incision Call your doctor if your incision/area has: Continuous Slow Oozing, Increased Pain/ Swelling, Increased Redness and Foul Smelling Discharge Call your doctor if you observe: Fever of 101 or Higher, Inability to urinate, Using more than 1 pad per hour, Shortness of breath, Chest pain, Calf discomfortand Uncontrolled pain Cleanse incision/area with: Soap & Water and Keep Dressing Clean & Dry Follow Up Care Please Follow Up With: Lina Dior DO When: 2 weeks post operative visit. Test Results: Test results from this visit will be discussed in further detail at your follow-up appointment, if applicable. Discharge Plan Admission Primary Reason for Your Visit: Oophorectomy Attending Provider: Lina Dior Primary Care Provider: Jazmyn Physician,No Primary Discharge Orders/Prescriptions Prescriptions: New enoxaparin [Lovenox] 40 mg/0.4 mL syringe 40 mg subcut DAILY 10 Days Qty: 4 0RF Continued famotidine 20 MG tablet 20 mg PO DAILY fluticasone propionate 1 SPRAY spray,suspension 1 spray NASAL BID docusate sodium 100 MG capsule 100 mg PO BID PRN PRN (Reason: Constipation) Qty: 60 1RF aspirin 81 mg Tablet 81 mg PO DAILY Referrals / Follow Up: Care Physician,No Primary [Primary Care Provider] - Disposition Disposition (needs filled in before D/C Order can be placed): Home, Self Care 02/13/23 1319<Electronically signed by Lina Dior DO>Lina Dior DO CC: No Primary Care Physician ~ Signed [facility] Work Phone: Procedure note 02-13-2023 Note Date & Type Note Facility 02-13-2023 Procedure note [facility] History and physical note 02-13-2023 Note Date & Type Note Facility 02-13-2023 History and physical note Note Date/Time February 13, 2023 7:20am [facility] Medical Records Department [address] [place] [address] 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 Denies headache or vision changes, chest pain or shortness of breath, nausea or vomiting, fevers or chills, diarrhea or constipation. 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 Depression 2. Arthritis 3. History of VTE in the right leg in 2018 after a long trip and being on an oral contraceptive pill Surgical history: 1. Robotic assisted total laparoscopic hysterectomy, bilateral salpingectomy 2. section 3. Tonsillectomy and adenoidectomy Medications: 1. Aspirin 81 mg qD 2. Pepcid 20 mg qD Allergies: Sulfa, PCN Family history: Denies history of blood clots or bleeding disorders Social history: Denies tobacco, alcohol, drug use Review of system: Negative otherwise stated above Physical exam: Vitals pending General: No acute distress HEENT: Normocephalic/atraumatic, PERRLA Cardiac: Regular rate and rhythm Respiratory clear to auscultation bilaterally Abdomen: Soft, nontender, nondistended Extremities: No edema Neurologic: Cranial nerves II through XII grossly intact, no focal deficits Musculoskeletal: Strength out of 5 throughout extremities. Assessment/plan: 47-year-old female with large left ovarian cyst and small rightovarian cyst planned for laparoscopic left oophorectomy, possible right ovarian cystectomy, possible right oophorectomy. Patient does desire right oophorectomy. She is aware of the risks and benefits. Aware that she will be placed into surgical menopause and is not a candidate for hormone replacement therapy due to her history of venous thromboembolism. Aware of risk of increased Eliquis mortality. She is electing today for oophorectomy. All risk,benefits, alternatives discussed with patient.? Risk include but are not limitedto: Risk of bleeding plan transfusion, infection, injury to surrounding tissue including bowel/bladder/major abdominal vessels, VTE, ICU admission.? Patient aware and consented. Due to history of VTE, will discharge home on prophylactic Lovenox. 02/13/23 1013 <Electronically signed by Lina Dior DO> Cosigner Signature (if applicable): CC: Dr. Lina Dior, DO; No Primary Care Physician~ Signed [facility] Work Phone: Evaluation note Note Date & Type Note Facility Evaluation note No assessment information availa ble [facility] Work Phone: Hospital Discharge instructions Note Date & Type Note Facility Hospital Discharge instructions Additional Instructions Implant Used?: No [facility] Work Phone: Chief Complaint and Reason for Visit Chief Complaint lap lt ooph, poss rt ooph, poss rt ovarian cystect Chief Complaint NUMBNESS AND TINGLIN G OF RT FOOT NUMBNESS AND TINGLING OF RT FOOT Advance Directives No Advanced Directives Records Found Advance Directive Response Recorded Date/ Time Living Will No February 06, 2023 3:18pm Power of Money Manager No February 06 3:18pm Family History No Family History Records Found Mitral Valve Prolapse Status:Active Comments:M other. Brother. Prostate Cancer Status:Active Comments:Paterna l Grandfather. Rheumatoid Arthritis Status:Active Comments:Br other. Heart disease Status:Inactive Comments:Mother. Brother. Mitral Valve Prolapse Status:Active Comments:M other. Brother. Prostate Cancer Status:Active Comments:Paterna l Grandfather. Rheumatoid Arthritis Status:Active Comments:Br other. Heart disease Status:Inactive Comments:Mother. Brother. Mitral Valve Prolapse Status:Active Comments:M other. Brother. Prostate Cancer Status:Active Comments:Paterna l Grandfather. Rheumatoid Arthritis Status:Active Comments:Br other. Heart disease Status:Inactive Comments:Mother. Brother. Mitral Valve Prolapse Status:Active Comments:M other. Brother. Prostate Cancer Status:Active Comments:Paterna l Grandfather. Rheumatoid Arthritis Status:Active Comments:Br other. Heart disease Status:Inactive Comments:Mother. Brother. Mitral Valve Prolapse Status:Active Comments:M other. Brother. Prostate Cancer Status:Active Comments:Paterna l Grandfather. Rheumatoid Arthritis Status:Active Comments:Br other. Heart disease Status:Inactive Comments:Mother. Brother. Mitral Valve Prolapse Status:Active Comments:M other. Brother. Prostate Cancer Status:Active Comments:Paterna l Grandfather. Rheumatoid Arthritis Status:Active Comments:Br other. Heart disease Status:Inactive Comments:Mother. Brother. Mitral Valve Prolapse Status:Active Comments:M other. Brother. Prostate Cancer Status:Active Comments:Paterna l Grandfather. Rheumatoid Arthritis Status:Active Comments:Br other. Heart disease Status:Inactive Comments:Mother. Brother. Mitral Valve Prolapse Status:Active Comments:M other. Brother. Prostate Cancer Status:Active Comments:Paterna l Grandfather. Rheumatoid Arthritis Status:Active Comments:Br other. Heart disease Status:Inactive Comments:Mother. Brother. Mitral Valve Prolapse Status:Active Comments:M other. Brother. Prostate Cancer Status:Active Comments:Paterna l Grandfather. Rheumatoid Arthritis Status:Active Comments:Br other. Heart disease Status:Inactive Comments:Mother. Brother. Mitral Valve Prolapse Status:Active Comments:M other. Brother. Prostate Cancer Status:Active Comments:Paterna l Grandfather. Rheumatoid Arthritis Status:Active Comments:Br other. Heart disease Status:Inactive Comments:Mother. Brother. Mitral Valve Prolapse Status:Active Comments:M other. Brother. Prostate Cancer Status:Active Comments:Paterna l Grandfather. Rheumatoid Arthritis Status:Active Comments:Br other. Heart disease Status:Inactive Comments:Mother. Brother. Mitral Valve Prolapse Status:Active Comments:M other. Brother. Prostate Cancer Status:Active Comments:Paterna l Grandfather. Rheumatoid Arthritis Status:Active Comments:Br other. Heart disease Status:Inactive Comments:Mother. Brother. Mitral Valve Prolapse Status:Active Comments:M other. Brother. Prostate Cancer Status:Active Comments:Paterna l Grandfather. Rheumatoid Arthritis Status:Active Comments:Br other. Heart disease Status:Inactive Comments:Mother. Brother. Mitral Valve Prolapse Status:Active Comments:M other. Brother. Prostate Cancer Status:Active Comments:Paterna l Grandfather. Rheumatoid Arthritis Status:Active Comments:Br other. Heart disease Status:Inactive Comments:Mother. Brother. Mitral Valve Prolapse Status:Active Comments:M other. Brother. Prostate Cancer Status:Active Comments:Paterna l Grandfather. Rheumatoid Arthritis Status:Active Comments:Br other. Heart disease Status:Inactive Comments:Mother. Brother. Mitral Valve Prolapse Status:Active Comments:M other. Brother. Prostate Cancer Status:Active Comments:Paterna l Grandfather. Rheumatoid Arthritis Status:Active Comments:Br other. Heart disease Status:Inactive Comments:Mother. Brother. Mitral Valve Prolapse Status:Active Comments:M other. Brother. Prostate Cancer Status:Active Comments:Paterna l Grandfather. Rheumatoid Arthritis Status:Active Comments:Br other. Heart disease Status:Inactive Comments:Mother. Brother. Mitral Valve Prolapse Status:Active Comments:M other. Brother. Prostate Cancer Status:Active Comments:Paterna l Grandfather. Rheumatoid Arthritis Status:Active Comments:Br other. Heart disease Status:Inactive Comments:Mother. Brother. Mitral Valve Prolapse Status:Active Comments:M other. Brother. Prostate Cancer Status:Active Comments:Paterna l Grandfather. Rheumatoid Arthritis Status:Active Comments:Br other. Heart disease Status:Inactive Comments:Mother. Brother. Mitral Valve Prolapse Status:Active Comments:M other. Brother. Prostate Cancer Status:Active Comments:Paterna l Grandfather. Rheumatoid Arthritis Status:Active Comments:Br other. Heart disease Status:Inactive Comments:Mother. Brother. Mitral Valve Prolapse Status:Active Comments:M other. Brother. Prostate Cancer Status:Active Comments:Paterna l Grandfather. Rheumatoid Arthritis Status:Active Comments:Br other. Heart disease Status:Inactive Comments:Mother. Brother. Mitral Valve Prolapse Status:Active Comments:M other. Brother. Prostate Cancer Status:Active Comments:Paterna l Grandfather. Rheumatoid Arthritis Status:Active Comments:Br other. Heart disease Status:Inactive Comments:Mother. Brother. Mitral Valve Prolapse Status:Active Comments:M other. Brother. Prostate Cancer Status:Active Comments:Paterna l Grandfather. Rheumatoid Arthritis Status:Active Comments:Br other. Heart disease Status:Inactive Comments:Mother. Brother. Mitral Valve Prolapse Status:Active Comments:M other. Brother. Prostate Cancer Status:Active Comments:Paterna l Grandfather. Rheumatoid Arthritis Status:Active Comments:Br other. Heart disease Status:Inactive Comments:Mother. Brother. Mitral Valve Prolapse Status:Active Comments:M other. Brother. Prostate Cancer Status:Active Comments:Paterna l Grandfather. Rheumatoid Arthritis Status:Active Comments:Br other. Heart disease Status:Inactive Comments:Mother. Brother. Mitral Valve Prolapse Status:Active Comments:M other. Brother. Prostate Cancer Status:Active Comments:Paterna l Grandfather. Rheumatoid Arthritis Status:Active Comments:Br other. Heart disease Status:Inactive Comments:Mother. Brother. Mitral Valve Prolapse Status:Active Comments:M other. Brother. Prostate Cancer Status:Active Comments:Paterna l Grandfather. Rheumatoid Arthritis Status:Active Comments:Br other. Heart disease Status:Inactive Comments:Mother. Brother. Mitral Valve Prolapse Status:Active Comments:M other. Brother. Prostate Cancer Status:Active Comments:Paterna l Grandfather. Rheumatoid Arthritis Status:Active Comments:Br other. Heart disease Status:Inactive Comments:Mother. Brother. Mitral Valve Prolapse Status:Active Comments:M other. Brother. Prostate Cancer Status:Active Comments:Paterna l Grandfather. Rheumatoid Arthritis Status:Active Comments:Br other. Heart disease Status:Inactive Comments:Mother. Brother. Summary Purpose Additional Source Comments Care Teams (unrecognized sec tion and content) Team Status: Active Member Role Status Dates No Primary Care Physician Primary Care Provider Active Team Status: Inactive Member Role Status Dates Dr. Lina Dior DO Attending Provider Active Team Status: Inactive Member Role Status Dates Dr. Lina Dior DO Attending Provider, Referrin g Provider Active No Primary Care Physician Primary Care Provider Active Team Status: Active Member Role Status Dates LARA Garcia Primary Care Provider Active Team Status: Active Member Role Status Dates LARA Garcia Primary Care Provi raji, Referring Provider, Other Provider Active Dr. Cody Macias MD Attending Provider Active Team Status: Inactive Member Role Status Dates LARA Garcia Primary Care Provi raji, Attending Provider, Referring Provider Active Goals (unrecognized section and content) Goals may be documented in a n alternate section INFORMATION SOURCE (unrecogn ized section and content) DATE CREATED AUTHOR 11/03/2024 [facility] DATE CREATED AUTHOR AUTHOR'S ORGANIZ ATION 04/13/2025 [facility] DATE CREATED AUTHOR AUTHOR'S ORGANIZ ATION 06/19/2025 [facility] DATE CREATED AUTHOR AUTHOR'S ORGANIZ ATION 08/19/2025 [facility] FOR RECORDS PERTAINING TO PATIENTS WHO ARE OR HAVE BEEN ENROLLED IN A CHEMICAL DEPENDENCY/SUBSTANCEABUSE PROGRAM, SOME INFORMATION MAY BE OMITTED. This clinical summary was aggregated from multiple sources. Caution should be exercised in using it in the provision of clinical care. This summary normalizes information from multiple sources, and as a consequence, information in this document may materially change the coding, format and clinical context of patient data. In addition, data may be omitted in some cases. CLINICAL DECISIONS SHOULD BE BASED ON THE PRIMARY CLINICAL RECORDS. [employer] provides no warranty or guarantee of the accuracy or completeness of information in this document.
--- NOTE | 2025-10-18 07:43 | PCM.HP.STD ---
HPI - General General Date of Admission: 10/18/25 Date of Service: 10/18/25 Chief Complaint: Colonoscopy HPI Narrative REGINALD MCCARTHY, is a 50 F who presents for her first screening colonoscopy. She denies any GI issues or complaints. No blood in her stools. No black or tarry stools. She does have a family history of colon cancer in her paternal grandfather. She presents today for colonoscopy. She states bowel prep was clear [facility] Medical History Screening for colon cancer PONV (postoperative nausea and vomiting) Wears glasses DVT (deep venous thrombosis) Gastric reflux Non-smoker Home Medications ?Medication ?Instructions ?Recorded ?Last Taken ?Type famotidine 20 mg tablet 20 mg PO DAILY GERD 12/07/18 10/17/25 History Allergy/AdvReac Type Severity Reaction Status Date / Time Penicillins (PCN) Allergy Rash Verified 10/18/25 07:11 Sulfa (Sulfonamide Allergy Rash Verified 10/18/25 07:11 Antibiotics) Family History Brother Arthritis Grandmother Arthritis Surgical History (Updated 10/12/25 @ 12:11 by Chhaya Haas) History of bilateral oophorectomy History of myringotomy History of tonsillectomy History of knee surgery History of hysterectomy History of Social History Smoking Status: Never smoker alcohol intake: never Patient's Goals Of Care . What would you like to achieve or improve as a result of your hospital stay?: , Vital Signs Vital Signs Vital Signs: 10/18/25 07:12 10/18/25 07:12 10/18/25 07:12 Temperature 96.9 F L Temperature Source Temporal Pulse Rate 72 Respiratory Rate 18 Respiratory Pattern Normal Blood Pressure 118/64 Blood Pressure Mean 82 Blood Pressure Source Monitor Blood Pressure Position Sitting Blood Pressure Location Right Arm Baseline BP 118/64 Pulse Ox 99 Oxygen Delivery Method Room Air Weight Weight: 147 lb 11.355 oz Body Mass Index (BMI) 23.1 Physical Exam Const alert, oriented x3 and no apparent distress Assessment & Plan Assessment/Plan (1) Screening for colon cancer: PLAN: Plan Colonoscopy planned for today. We discussed the details of the planned procedure including the risks benefits and alternatives. She wishes to proceed. This will begin in a timely manner.
--- NOTE | 2025-10-18 07:59 | PRE.ANES_ITS ---
ASA Classification* ASA Classification ASA Classification: 2 Assessment & Plan Anesthesia* Anesthesia Assessment Anesthesia Assessment: Discussed sedation and/or anesthesia options, risks, benefits, and alternatives with patient/parents/legal guardian/POA. Questions invited. The patient/parents/legal guardian/POA seems to understand and agrees to proceed with anesthesia plan. Reviewed the physical assessment, medical history, allergy history and patient home medications list prior to surgery/procedure/anesthetic and documented any changes. Performed airway and anesthesia risk assessments. Anesthesia Type Anesthesia Type: MAC History Source History Obtained from:: Patient and Chart Anesthesia Focused Assessment* Temperature: 96.9 F Pulse Rate: 72 Blood Pressure: 118/64 Respiratory Rate: 18 Pulse Ox: 99 Oxygen Delivery Method: Room Air Airway Assessment Mouth opens: 2 cm Mallampati Score: IV Teeth Condition: Caps/Crowns (Patient has a left lower crown on her molar. It is tight.) Neck Range of motion (ROM): Full ROM Labs Anesthesia Preop lab: CBC WBC, (4.4-11.0) 6.9 K/mm3 02/07/23, 16:05 RBC, (4.2-5.4) 3.94 M/mm3 L 02/07/23, 16:05 Hgb, (12.0-15.0) 12.4 g/dL 02/07/23, 16:05 Hct, (37-47) 38.2 % 02/07/23, 16:05 Plt Count, (150-450) 229 K/mm3 02/07/23, 16:05 CHEMISTRY Creatinine, (0.55-1.02) 0.78 mg/dL 12/17/18, 15:20 TSH, (0.300-4.200) 1.100 uIU/mL 09/28/25, 15:11 COAG PT, (11.7-14.9) 13.1 SECONDS 12/09/18, 16:49 Urine Test Negative Negative 12/14/18, 08:56 Pre-Assessment Diagnosis/Proposed Procedure Planned Operative Procedure(s): cscope Anesthesia History Anesthesia History - set up and lay out inspector: Anesthesia History - set up and lay out inspector Hx Hospitalization No 10/12/25 12:07 Any Problems With Anesthesia No 10/12/25 12:07 Cholinesterase deficiency No 10/12/25 12:07 You/Your Family Experience No 10/12/25 12:07 fever (hyperthermia) with Relationship Recent Exposure to Contagious No 10/18/25 07:12 Disease Does patient have nerve No 10/12/25 12:07 stimulator Patient instructed to have device shut off --Does patient have Pacemaker No 10/18/25 07:12 or ICD? When Was Last Pacemaker Check QUESTION #4 FULL TEXT: You/Your Family Experience fever (hyperthermia) with Anesthesia Last Oral Intake Last Oral intake: Last Oral Intake NPO since 23:00 10/18/25 07:12 Meds taken in AM with sips of No 10/18/25 07:12 water? Meds patient instructed to take am of surgery PONV PONV - set up and lay out inspector: PONV - set up and lay out inspector Female Yes 10/12/25 12:07 HX of Motion Sickness Yes 10/12/25 12:07 HX of N/V After Surgery Yes 10/12/25 12:07 Non-Smoker Yes 10/12/25 12:07 Duration of Surgery greater No 10/12/25 12:07 than 60 minutes Number of Risk Factors 4 10/12/25 12:07 PONV Score Severe Risk 10/12/25 12:07 Height & Weight Height & Weight: Anesthesia: Height & Weight Height 5 ft 7 in 10/18/25 07:12 Weight: 67 kg 10/18/25 07:12 Body Mass Index (BMI) 23.1 10/18/25 07:12 Respiratory Assessment Respiratory Assessment - set up and lay out inspector: Respiratory Tract Infection Hx - set up and lay out inspector Hx Respiratory Tract Infection No 10/12/25 12:07 STOP Sleep Apnea STOP Sleep Apnea - set up and lay out inspector: STOP Sleep Apnea - set up and lay out inspector Hx Hypertension No 10/12/25 12:07 Hx Sleep Apnea No 10/12/25 12:07 CPAP No 12/14/18 15:00 BIPAP Do you snore loudly (louder No 10/12/25 12:07 than talking or can be heard Do you often feel tired/ No 10/12/25 12:07 fatigued/ sleepy during daytime? Has anyone observed you stop No 10/12/25 12:07 breathing during sleep? STOP Results Negative 10/12/25 12:07 QUESTION #5 FULL TEXT : Do you snore loudly (louder than talking or can be heard through closed doors)? Tobacco Use History Tobacco Use History - set up and lay out inspector: Tobacco Use History - set up and lay out inspector Tobacco Use Smoking Status Never smoker 10/12/25 12:07 Hx Tobacco Use No 10/12/25 12:07 Years Smoking Packs Smoked per Day Smoking Cessation Date was within the last 15 years Hx Smoking Cessation Date Hx Smoking Cessation Counseling Hematologic Medial History Hematologic Hx - set up and lay out inspector: Hematologic Medical Hx - record tester Hx of Blood Transfusion Yes 10/12/25 12:07 Hx of Transfusion in last 3 No 10/12/25 12:07 Months Date of Last Transfusion (if within last 3 months) Ever experience any problems No 10/12/25 12:07 with transfusion(s)? Specify any problems Hx of Preganancy in last 3 N/A 10/12/25 12:07 Months Nurse Filling Out Transfusion NBUCHER 10/12/25 12:07 & Questions: Date: 10/12/25 10/12/25 12:07 Time: 12:08 10/12/25 12:07 Patient unable to answer at this time (ie. confused, unrespo /Reproduction History /Reproductive History - set up and lay out inspector: /Reproductive Hx- set up and lay out inspector Hx Now No 10/12/25 12:07 Gestational Age (in weeks): EDC: Hx Hx Para Hx Section SAB No 10/12/25 12:07 Does the father of the baby or his family experience fever w Father of the baby Malignant Hypertension history comment Active Medications Active Medications: Current Medications Generic Name Dose Route Start Last Admin Trade Name Freq PRN Reason Stop Dose Admin Lactated Ringer's 1,000 mls @ 15 mls/hr 10/18/25 07:15 10/18/25 07:15 IV 15 mls/hr .Q48H PAULIE Administration PFSH Medical History Screening for colon cancer PONV (postoperative nausea and vomiting) Wears glasses DVT (deep venous thrombosis) Gastric reflux Non-smoker Home Medications ?Medication ?Instructions ?Recorded ?Last Taken ?Type famotidine 20 mg tablet 20 mg PO DAILY GERD 12/07/18 10/17/25 History Allergy/AdvReac Type Severity Reaction Status Date / Time Penicillins (PCN) Allergy Rash Verified 10/18/25 07:11 Sulfa (Sulfonamide Allergy Rash Verified 10/18/25 07:11 Antibiotics) Family History Brother Arthritis Grandmother Arthritis Surgical History History of bilateral oophorectomy History of myringotomy History of tonsillectomy History of knee surgery History of hysterectomy History of Social History Smoking Status: Never smoker alcohol intake: never Review of Systems (Anesthesia) ROS Narrative System reviewed and no additional complaints, except as documented.
[2025-10-18] MEDS: Lactated Ringers 500 ML IV (08:52)
--- NOTE | 2025-10-18 09:29 | OP.PROVAT_ITS ---
10/18/2025 Monica Osborn Re : Colonoscopy procedure for Carolina Negrete Anurag This procedure was performed on Saturday, October 18, 2025. My impressions and recommendations are as follows: Impressions : - Non-bleeding hemorrhoids. - The examination was otherwise normal on direct and retroflexion views. - No specimens collected. Recommendations : - Discharge patient to home (ambulatory). - High fiber diet. - Repeat colonoscopy in 10 years for screening purposes. - Continue present medications. My findings are described in the full procedure note, which is enclosed. If I can be of further assistance, please feel free to contact me at . Sincerely, Mauricio Bailon MD 10/18/2025 9:29:20 AM This report has been signed electronically.
--- NOTE | 2025-10-18 09:29 | OP.COLON_ITS ---
Patient Name: Carolina Small Procedure Date: 10/18/2025 8:13 AM Date of : 1975 Age: 50 Procedure: Colonoscopy Indications: Screening for colorectal malignant neoplasm Providers: Mauricio Bailon MD Referring MD: Monica Osborn Medicines: Monitored Anesthesia Care Patient Profile: Refer to note in patient chart for documentation of history and physical. Last Colonoscopy: none. The patient's first colonoscopy is today. Complications: No immediate complications. Estimated blood loss: None. Procedure: Pre-Anesthesia Assessment: - Prior to the procedure, a History and Physical was performed, and patient medications and allergies were reviewed. The patient's tolerance of previous anesthesia was also reviewed. The risks and benefits of the procedure and the sedation options and risks were discussed with the patient. All questions were answered, and informed consent was obtained. Prior Anticoagulants: The patient has taken no anticoagulant or antiplatelet agents. ASA Grade Assessment: II - A patient with mild systemic disease. After reviewing the risks and benefits, the patient was deemed in satisfactory condition to undergo the procedure. After I obtained informed consent, the scope was passed under direct vision. Throughout the procedure, the patient's blood pressure, pulse, and oxygen saturations were monitored continuously. The adult colonoscope was introduced through the anus and advanced to the cecum, identified by appendiceal orifice and ileocecal valve. The ileocecal valve, appendiceal orifice, and rectum were photographed. The entire colon was well visualized. The colonoscopy was performed without difficulty. The patient tolerated the procedure well. The quality of the bowel preparation was adequate. Moderate Sedation: See the other procedure note for documentation of moderate sedation with intraservice time. Scope In: 9:00:40 AM Scope Withdrawal Time 0 hours 7 minutes 4 seconds Scope Out: 9:23:04 AM Total Procedure Duration Time 0 hours 22 minutes 24 seconds Findings: The perianal and digital rectal examinations were normal. Non-bleeding hemorrhoids were found during retroflexion. The hemorrhoids were mild. The exam was otherwise without abnormality on direct and retroflexion views. Impression: - Non-bleeding hemorrhoids. - The examination was otherwise normal on direct and retroflexion views. - No specimens collected. Recommendation: - Discharge patient to home (ambulatory). - High fiber diet. - Repeat colonoscopy in 10 years for screening purposes. - Continue present medications. Procedure Code(s): --- Professional --- 76345, Colonoscopy, flexible; diagnostic, including collection of specimen(s) by brushing or washing, when performed (separate procedure) Diagnosis Code(s): --- Professional --- K64.9, Unspecified hemorrhoids Z12.11, Encounter for screening for malignant neoplasm of colon CPT copyright 2021 [employer]. All rights reserved. The codes documented in this report are preliminary and upon cooperative extension agent review may be revised to meet current compliance requirements. Mauricio Bailon MD 10/18/2025 9:29:20 AM This report has been signed electronically. Number of Addenda: 0 Note Initiated On: 10/18/2025 8:13 AM
--- NOTE | 2025-10-18 09:33 | PCM.POST.ANE ---
Anesthesia: Postop Eval I Current Vital Signs Temperature: 97.8 F Pulse Rate: 72 Blood Pressure: 92/56 Respiratory Rate: 16 Pulse Ox: 96 Oxygen Delivery Method: Room Air Assessment Airway patent: Yes Spontaneous unlabored respirations: Yes Mental status: Awake and Calm nausea: No Vomiting: No Anesthesia Complication: No Fluid Hydration Crystalloid volume administer (ml): 500 Total IV fluid infused: 500 Progress Note Anesthesia document: Postop Eval 1 completed: Yes
--- NOTE | 2025-10-18 12:30 | POSTOPAN2_ITS ---
Anesthesia Postop Eval I Sum Postop Eval Completion status Anesthesia document: Postop Eval 1 completed: Yes Anesthesia Postop Eval I Summary Anesthesia Postop Eval I Summary: Anesthesia Postop Eval I: Assessment Summary Airway patent Yes 10/18/25 09:33 [email or web address] Spontaneous unlabored Yes 10/18/25 09:33 [email or web address] respirations Mental status Awake,Calm 10/18/25 09:33 [email or web address] nausea No 10/18/25 09:33 [email or web address] Vomiting No 10/18/25 09:33 [email or web address] Anesthesia Postop Eval I: Fluid Summary Crystalloid volume administer 500 10/18/25 09:33 [email or web address] (ml) Colloids volume administered ( ml) Blood Product volume administered (ml) Total IV fluid infused 500 10/18/25 09:33 [email or web address] Anesthesia Postop Eval I: Summary Notes Anesthesia Complication No 10/18/25 09:33 [email or web address] Anesthesia Complication Comment: Post-operative progress note Anesthesia: Postop Eval II Evaluation Mental status: Awake and Calm Pain Level: 0 nausea: No Vomiting: No Complications Anesthesia Complication: No
--- NOTE | 2025-10-18 12:30 | PCM.POSTANE2 ---
Anesthesia Postop Eval I Sum Postop Eval Completion status Anesthesia document: Postop Eval 1 completed: Yes Anesthesia Postop Eval I Summary Anesthesia Postop Eval I Summary: Anesthesia Postop Eval I: Assessment Summary Airway patent Yes 10/18/25 09:33 [email or web address] Spontaneous unlabored Yes 10/18/25 09:33 [email or web address] respirations Mental status Awake,Calm 10/18/25 09:33 [email or web address] nausea No 10/18/25 09:33 [email or web address] Vomiting No 10/18/25 09:33 [email or web address] Anesthesia Postop Eval I: Fluid Summary Crystalloid volume administer 500 10/18/25 09:33 [email or web address] (ml) Colloids volume administered ( ml) Blood Product volume administered (ml) Total IV fluid infused 500 10/18/25 09:33 [email or web address] Anesthesia Postop Eval I: Summary Notes Anesthesia Complication No 10/18/25 09:33 [email or web address] Anesthesia Complication Comment: Post-operative progress note Anesthesia: Postop Eval II Evaluation Mental status: Awake and Calm Pain Level: 0 nausea: No Vomiting: No Complications Anesthesia Complication: No
== END 2025-10-18 10:17 | disposition home or self-care (01) ==
LOC: EN 07:00 → AC 07:01
PROVIDERS: PCP Physician Assistant; Referring Provider Physician Assistant; Visit Provider Surgery
PROC: 0DJD8ZZ Inspection of Lower Intestinal Tract, Via Natural or Artificial Opening Endoscopic (ICD-10-PCS; CPT 45378; principal; 2025-10-18 08:25)
DX: Z12.11 Encounter for screening for malignant neoplasm of colon (principal); K64.9 Unspecified hemorrhoids; Z86.718 Personal history of other venous thrombosis and embolism; K21.9 Gastro-esophageal reflux disease without esophagitis; Z79.899 Other long term (current) drug therapy
CPT/HCPCS: 45378; J2405